=== PATIENT | female | born 1940 | race Caucasian/White ===

== ENCOUNTER 2020-04-06 11:30 | Outpatient (CLI) | payer MEDICARE, SELFPAY ==
--- NOTE | ~2020-04-06 | XR_ITS ---
EXAMINATION: XR knee RT 3V DATE: 04/06/2020 11:56 INDICATION: Right knee joint effusion. TECHNIQUE: 3 views of right knee were obtained. COMPARISON: None. FINDINGS: There is lateral subluxation of tibia with respect to distal femur. No fracture. There is s evere osteoarthritis of patellofemoral compartment and moderate osteoarthritis of medial and lateral compartments. There is a small knee joint effusion. IMPRESSION: 1. Severe right knee osteoarthritis. 2. Small right knee joint effusion. Reviewed, dictated and finalized at location E.
--- NOTE | ~2020-04-06 | XR_ITS ---
EXAMINATION: XR lumbar spine 2-3V DATE: 04/06/2020 11:56 INDICATION: Low back pain TECHNIQUE: Anteroposterior and lateral views of the lumbar spine, and cone-down lateral view of the l umbosacral junction were obtained. COMPARISON: None. FINDINGS: There is lumbar levoscoliosis. The vertebral body heights and alignment are maintained. The re is no fracture. There is severe loss of intervertebral disc space height at L2-3 and L3-4. Small d egenerative osteophytes project from the anterior endplates of multiple vertebral bodies. Advanced fa cet osteoarthritis is seen in the lower lumbar spine. Calcified atherosclerosis is noted. The bowel g as pattern is normal. There is moderate right hip osteoarthritis. IMPRESSION: 1. Severe lumbar spondylosis without acute findings. Reviewed, dictated and finalized at location A.
== END 2020-04-06 11:31 | disposition home or self-care (01) ==
PROVIDERS: PCP Family Medicine; Visit Provider Family Medicine
DX: M25.461 Effusion, right knee (principal); M54.5 Low back pain; M47.816 Spondylosis without myelopathy or radiculopathy, lumbar region; M17.11 Unilateral primary osteoarthritis, right knee
CPT/HCPCS: 72100; 73562

== ENCOUNTER 2020-05-02 11:00 | Outpatient (RCR) | payer MEDICARE, SELFPAY ==
--- NOTE | 2020-04-04 11:35 | PTOPEVAL ---
PHYSICAL THERAPY EVALUATION AND PLAN OF CARE Thank you for referring Diana Haynes to [facility]. I recommend Diana participate in physical therapy 2x/week for 4 weeks followed by re-assessment for further PT needs. Please review, sign, date and return this plan of care MAGGIE. I agree with and certify that the following plan of care is medically necessary. Referring Physician Date Attending Provider: Elizabeth Zamora MD Evaluation Outpatient Past Medical History Cardiovascular History Hx Hypertension Yes Endocrine History Hx Diabetes Yes Evaluation Information Problem Diagnosis right knee pain, back/side pain Onset January 2020 Subjective Information Diana is here today with c/ Query Text:As Reported By Patient/ o right knee pain and left Family side/back pain. She states that she thinks she initially injured the back/side when she was putting the bed skirt on her bed and she felt a pull and has not resolved. Diana is unsure when her knee was injured, she just woke up to it hurting. Self Report Pain Assessment Left Back Reported Pain Level 3 Pain Description Aching,Pinching Pain Frequency Acute,Continuous Lowest Pain Intensity 3 Greatest Pain Intensity 6 Pain Aggravating Factors Walking,Weight Bearing/ Standing Other Pain Aggravating Factors first waking in the morning Lumbar ROM Lumbar Flexion (0-90) 45 Query Text:Active in Degrees Lumbar Flexion Active Mid Manzo Query Text:Hands to: Lumbar Extension (0-40) 10 Query Text:Active in Degrees Lateral Rotation Right (0-45) 30 Query Text:Active in Degrees Lateral Rotation Left (0-45) 35 Query Text:Active in Degrees Lumbar Comments pain with extension and left rotation in thigh and left side; SLS: pain lifting left leg, no pain lifting irght General Lower Extremity Range of Motion Reason Not Measured WFL/Left Knee Range of Motion Right Knee Flexion Range of Motion - Active 116 Knee Extension Range of Motion - Active 4 Query Text: Knee Range of Motion Comments reports pain in knee when extending Lumbar Strength Upper Abdominal Strength 3 Fair Lower Abdominal Strength 3-Fair- Hip Strength Bilateral Hip Flexion Strength
--- NOTE | 2020-04-20 11:53 | PCPTNOTE ---
Missed treatment note on 04/15/2020 at 11:00am. s: Patient arrived to therapy with 3-4/10pain. Stated felt a difference with reduced pain after the stim from last treatment. Continues to take two acetomenaphin before therapy. o: Patient performed 5min Nustep level 2 resistance at seat 10 with tom. UE/LE to increase muscle strength and endurance. Exercises as described below include: - Seated on green namibian ball with education on posture awareness performing alt. marching with one UE support on table for balance [id number]; limited ROM on L due to pain - seated on edge of bed hamstring stretch 10sec hold x3reps - Seated alt. marching [id number] with education on posture awareness with core activation - Supine SLR [id number] ea side; demo and cues for technique - Supine LTR with red namibian ball 5sec hold x10ea side - Supine bridges with red namibian ball [id number] x2 - Sidelying hip abduction [id number] with tactile cues for positioning and technique Manual therapy performed in sidelying for TPR to glute med and QL Seated IFC with MHP x15min with vector scan off to reduce pain and muscle tension A: Patient tolerated manual therapy this date with visable muscle twitch in left glute with TPR P: Continue working towards plan of care goals. PT Procedures: Treatment day number 4 Total minutes of PT 55min E-stim unattended PT Timed treatment: PT Exercise 2 units for 30min, manual therapy 1 unit for 10min
--- NOTE | 2020-05-02 11:38 | PTOPEVAL ---
PHYSICAL THERAPY PLAN OF CARE UPDATE AND PROGRESS REPORT Thank you for referring Diana Haynes to [facility]. At this time, Diana would like to follow-up with physician regarding her current care. She will also continue her HEP. We will hold her chart for 30days. Please review, sign, date and return this plan of care MAGGIE. I agree with and certify that the following plan of care is medically necessary. Referring Physician Date Attending Provider: Elizabeth Zamora MD Progress Diagnosis right knee pain, back/side pain Onset January 2020 Subjective Information Diana reports today that Query Text:As Reported By Patient/ she maybe feels a little Family better. The right knee is significantly improved, especially when she takes OTC NSAIDS. States that her left side pain persists although does not that if she moves around throughout the day it starts to feel better. Continues to report left anterior thigh pain that is less than it was with more tingles than numbness. Self Report Pain Assessment Left Back Reported Pain Level 5 Pain Description Aching,Pinching Pain Frequency Acute,Continuous Pain Aggravating Factors Walking,Weight Bearing/ Standing Pain Score Pain Score 5: Self Report Additional Pain Score Comments getting better Lumbar ROM Lumbar Flexion (0-90) 50 Query Text:Active in Degrees Lumbar Flexion Active Mid Manzo Query Text:Hands to: Lumbar Extension (0-40) 10 Query Text:Active in Degrees Lateral Rotation Right (0-45) 40 Query Text:Active in Degrees Lateral Rotation Left (0-45) 40 Query Text:Active in Degrees Lumbar Comments pain with extension and left rotation in anterior thigh causing tingling Lower Extremity Range of Motion Knee Range of Motion Right Knee Flexion Range of Motion - Active 119 Knee Extension Range of Motion - Active 4 Query Text: Lower Extremity Muscle Strength Testing Hip Strength Bilateral Hip Flexion Strength 5 Normal Hip Extension Strength 4- Good - Hip Abduction Strength 3+ Fair + Knee Strength Bilateral Knee Flexion Strength 5 Normal Knee Extension Strength 5 Normal Muscle Length Testing Muscle Length Testing Piriformis w/Hip Flexion >90 Degrees (R) M
--- NOTE | 2020-06-01 08:30 | PCPTNOTE ---
PHYSICAL THERAPY DISCHARGE Attending Provider: Elizabeth Zamora MD Patient:Diana Haynes Date of :1940 Diana was seen in physical therapy for 4 weeks starting on 04/04/2020. After a month of therapy, her right knee pain was improved, but she reported left side pain remained the same. She chose to continue her HEP and follow up with physician. We held her chart for 30 days and have not heard from patient or phyisican's office. She willl be discharged at this time. The goals have been partially met. Thank you for referring Diana to [facility]. Please review, sign, date and return this discharge summary MAGGIE. I have been updated about the patient's current status and I agree with discharge from the above service at this time. Referring Physician Date
== END 2020-06-02 14:11 | disposition home or self-care (01) ==
LOC: ANHPT 11:00
PROVIDERS: PCP Family Medicine; Visit Provider Family Medicine
DX: M25.561 Pain in right knee (principal); M54.9 Dorsalgia, unspecified
CPT/HCPCS: 97014; 97110; 97140; 97162; G0283

== ENCOUNTER 2020-06-02 08:35 | Outpatient (CLI) | payer MEDICARE, SELFPAY ==
--- NOTE | ~2020-06-02 | NM_ITS ---
EXAMINATION: NM parathyroid w imaging DATE: 06/02/2020 12:13 INDICATION: hypercalcemia TECHNIQUE: 19.6 mCi Tc99m sestamibi was administered by intravenous route. Anterior images of the nec k were obtained at 10 minutes and 2 hours. COMPARISON: None. FINDINGS/IMPRESSION: Normal uptake in the bilateral thyroid, parotid and submandibular glands, the former which decreases in intensity on the delayed images. There is no focus of persistent activity in the area of the thyro id or mediastinum to suggest parathyroid adenoma. Reviewed, dictated and finalized at location A.
== END 2020-06-02 08:36 | disposition home or self-care (01) ==
PROVIDERS: PCP Family Medicine; Visit Provider Family Medicine
DX: E83.52 Hypercalcemia (principal)
CPT/HCPCS: 78070; A9500

== ENCOUNTER 2020-12-13 11:15 | Outpatient (RCR) | payer MEDICARE, SELFPAY ==
--- NOTE | 2020-10-25 14:55 | PTOPEVAL ---
Thank you for referring Diana Haynes to [facility].? The patient is scheduled to be seen for therapy? 2x/week for 6-8 weeks. Please review, sign, date and return this plan of care MAGGIE. I agree with and certify that the following plan of care is medically necessary. Referring Physician Date Attending Provider: Karolina Hodgson PA-C Referring Provider: *PT Outpatient Evaluation Start: 10/25/20 12:27 Freq: Status: Active Protocol: Document 10/25/20 12:29 SOCORRO (Rec: 10/25/20 13:30 SOCORRO [id number]) Therapy Assessment Status Assessment Status Assessment Status Evaluation Outpatient Past Medical History Past Medical History Source of Past Medical History Patient,Recalled from Previous Visit, Unable to Confirm with Patient/Family Cardiovascular History Hx Hypertension Yes Musculoskeletal History Hx Arthritis Yes: right knee Hx Back Pain Yes Endocrine History Hx Diabetes Yes HEENT History Hx Glaucoma Yes Pain History Has Past Pain Affected Your Daily Life Yes Evaluation Information Problem Diagnosis back pain Onset Dec 2019 Cause lifting Additional Evaluation Detail She recently received right knee injection, but did not receive as much relief with her recent injection. Subjective Information She was placing her bed skirt, Query Text:As Reported By Patient/ when she attempted to lift the Family mattress. She then felt pain in her back region. She reports the pain varies in her back from sharp to ache, radiating numbness and tingling into left LE. She reports increased pain with lifting, and prolonged standing. Denies pain with ADL's. She is limited with community walking due to pain. She does not use her cane in the house. She is using muscle relaxers that has helped with her pain. She is not performing her HEP she was issued in May. She stopped her walking program in January 2020 due to COVID. Diagnostic Tests X-Rays For This Problem Yes: Small degenerative
--- NOTE | 2020-10-27 09:17 | PCPTNOTE ---
Patient called & cancelled scheduled appointment this date due to being ill.
--- NOTE | 2020-11-28 12:28 | PTOPEVAL ---
Thank you for referring Diana Haynes to [facility].? The patient is scheduled to be seen for therapy? 1 visit every 2 wk for 2 additional visits. Please review, sign, date and return this plan of care MAGGIE. I agree with and certify that the following plan of care is medically necessary. Referring Physician Date Admitting Provider: Attending Provider: Karolina Hodgson PA-C *PT Outpatient Evaluation Start: 10/25/20 12:27 Freq: Status: Active Protocol: Document 11/28/20 11:01 SOCORRO (Rec: 11/28/20 11:55 SOCORRO [id number]) Therapy Assessment Status Assessment Status Assessment Status Re-evaluation Evaluation Information Problem Diagnosis back pain Onset Dec 2019 Cause lifting Additional Evaluation Detail She recently received right knee injection, but did not receive as much relief with her recent injection. Subjective Information She reports she is able to Query Text:As Reported By Patient/ manage her pain with OTC Family medication. She cont to have pain in her left upper leg. She reports improved opal with walking and standing, but cont pain sharp pain in the low back region that radiating numbness and tingling into left LE. She is able to opal IADL's for 15-30' then requires a seated rest. She has trouble lifting due to whole body weakness. She is limited with community walking due to fatigue and weakness, but not always increased pain. She will take Ibuprofen before performing increased activities. Pain Assessment Timing of Pain Assessment Timing of Pain Assessment Re-assessment Pain Scale Pain Scale Used Numeric (1 - 10) Self Report Pain Assessment Bilateral Lower Back Reported Pain Level 5 Pain Description Numbness,Radiating,Sharp, Tingling Pain Radiation Left Leg Pain Frequency Chronic,Intermittent Lowest Pain Intensity 0 Greatest Pain Intensity 6 Pain Aggravating Factors ADL's,Exercise/Activity, Lifting Pain Score Pain Score 5: Self Report Interventions Used Int
--- NOTE | 2020-12-22 12:30 | PCPTNOTE ---
Patient called & cancelled scheduled appointment on 12/27/20, she did not reschedule at this time.
--- NOTE | 2021-01-17 10:18 | PCPTNOTE ---
Admitting Provider: Attending Provider: Karolina Hodgson PA-C Patient:Diana Haynes Date of :1940 Discharge Note Patient has not returned for any further treatments since 12/13/2020, therefore she will be discharged at this time. Patient?s initial visit was on 10/25/2020 12:30 and she had a total of 10 visits. She has been provided a home program to maintain her gains achieved with therapy., The goals have been partially met. Thank you for referring this patient to [facility]. Please review, sign, date and return this discharge summary MAGGIE. I have been updated about the patient's current status and I agree with discharge from the above service at this time. Referring Physician Date
== END 2021-01-17 12:50 | disposition home or self-care (01) ==
LOC: ANHPT 11:15
PROVIDERS: PCP Family Medicine; Visit Provider Physician Assistant
DX: M54.5 Low back pain (principal); M47.816 Spondylosis without myelopathy or radiculopathy, lumbar region; R29.898 Other symptoms and signs involving the musculoskeletal system
CPT/HCPCS: 97110; 97112; 97140; 97162; 97530

== ENCOUNTER 2021-07-19 07:45 | Outpatient (CLI) | payer MEDICARE, SELFPAY ==
--- NOTE | ~2021-07-19 | DEXA_ITS ---
Bone Density Report Name: Diana Haynes Age: 81 Sex: Female Ethnicity: White Date of : 1940 Indication: postmenopausal; height loss; prior fracture; Referring Provider: Karolina Hodgson Study: Bone densitometry was performed. Exam Date: July 19, 2021 Accession number: [id number] Bone Density: Region BMD T-score Z-score Classification AP Spine (L1-L4) 1.314 2.4 5.1 Normal Femoral Neck (Left) 0.822 -0.2 2.1 Normal Total Hip (Left) 0.935 -0.1 2.0 Normal Total Hip Bilateral Avg 0.936 -0.1 2.0 Normal Femoral Neck (Right) 0.881 0.3 2.6 Normal Total Hip (Right) 0.936 0.0 2.0 Normal World Health Organization criteria for BMD impression classify patients as: Normal (T-score at or above -1.0), Osteopenia (T-score between -1.0 and -2.5), or Osteoporosis (T-score at or below -2.5). 10-year Fracture Risk: FRAX not reported because: All T-scores for Spine Total, Hip Total, Femoral Neck at or above -1.0 Clinical Information Provided by Patient: Has had a low trauma fracture Has used the following medications: Vitamin D Patient maximum height was 67 Menopause Age: 52 No regular weight bearing exercise Does not regularly consume dairy products Onset of menses at age 15 Number of children 0 Impression: The patient has normal bone mass. The patient has risk factors, including: previous fracture. Discussion: LOW RISK OF FRACTURE; BONE DENSITY IS WELL ABOVE THE MINIMUM DESIRABLE LEVEL AND ABOVE AVERAGE FOR AGE AND SEX AT ALL SKELETAL SITES TESTED. This person's bone density is above expected limits for age and sex. This is rarely clinically significant, but should be pursued if there are significant musculoskeletal complaints. The patient should follow a healthful lifestyle (good nutrition with adequate calcium and vitamin D, and appropriate weight-bearing exercise). Follow-Up: Consider repeating this study in 5 years or sooner if there is some new clinical indication. Reported by: MEMO on 07/19/2021 8:12:00 AM. Reviewed, dictated and finalized at location ALupe UMANZOR
== END 2021-07-19 07:46 | disposition home or self-care (01) ==
LOC: ANHIMG 07:46
PROVIDERS: PCP Family Medicine; Visit Provider Physician Assistant
DX: Z78.0 Asymptomatic menopausal state (principal)
CPT/HCPCS: 77080

== ENCOUNTER 2022-07-06 10:13 | Emergency (ER) | payer MEDICARE, SELFPAY ==
[2022-07-06] VITALS (30 sets, daily range): BP systolic 170–215; BP diastolic 96–129; PULSE 86–145; RESP 16–27; TEMP 36.5; O2SAT 82–99
--- NOTE | ~2022-07-06 | CT_ITS ---
EXAMINATION: CT abdomen pelvis wo con DATE: 07/06/2022 11:27 INDICATION: Left lower quadrant pain. TECHNIQUE: Computed tomography (CT) of the abdomen and pelvis was performed without intravenous contr ast. The dose-length product was 577.77 mGy-cm. Automated exposure control and iterative reconstructi on technique were employed. COMPARISON: None. FINDINGS: Lung bases are unremarkable. Heart size upper normal. No significant pleural or pericardial effusion. There is atherosclerosis of the aorta without evidence for aneurysm. Gallbladder is disten ded. The liver, spleen, pancreas, adrenal glands and left kidney are unremarkable. There is a small 1 .4 cm exophytic right renal cyst. No renal/ureteral stones or hydronephrosis. Nonobstructive bowel ga s pattern. Moderate osteoarthritis of the hips. No evidence for diverticulitis or appendicitis. Sever e lumbar spondylosis. IMPRESSION: 1. No acute abdominal abnormality. Reviewed, dictated and finalized at location B.
--- NOTE | ~2022-07-06 | XR_ITS ---
EXAMINATION: XR lumbar spine 2-3V DATE: 07/06/2022 11:22 INDICATION: Low back pain TECHNIQUE: Anteroposterior and lateral views of the lumbar spine, and cone-down lateral view of the l umbosacral junction were obtained. COMPARISON: 04/06/2020 FINDINGS: Vertebral body alignment is normal. There appears to be mild loss of vertebral body height at L2. There is severe loss of intervertebral disc space height at L2-3 and L3-4 and moderate loss of disc space height at L4-5. Small degenerative osteophytes project from the anterior endplates of mul tiple vertebral bodies. Calcified atherosclerosis is noted. There is a dilated bowel in the right abd omen. IMPRESSION: 1. Possible age-indeterminate mild L2 compression fracture. 2. Severe lumbar spondylosis. 3. Dilated bowel loop of the right abdomen. CT pending. Reviewed, dictated and finalized at location A.
--- NOTE | 2022-07-06 10:45 | ECG_ITS ---
Measurements Intervals [place] Rate: 128 P: 33 NV: 134 QRS: -48 QRSD: 77 T: 69 QT: 334 QTc: 488 Interpretive Statements SINUS TACHYCARDIA WITH FREQUENT SUPRAVENTRICULAR PREMATURE COMPLEXES PATTERN CONSISTENT WITH PULMONARY DISEASE LEFT ATRIAL ENLARGEMENT NONSPECIFIC ST AND T CHANGES LEFT ANTERIOR FASCICULAR BLOCK [QRS AXIS <= -45, QR IN I, RS IN II] LEFT VENTRICULAR HYPERTROPHY AND ST-T CHANGE [VOLTAGE CRITERIA PLUS ST/T ABNORMALITY] NO PREVIOUS ECG AVAILABLE FOR COMPARISON Electronically Signed On 07-07-2022 13:20:07 CDT by Anika Olguin M.D.
--- NOTE | 2022-07-06 10:49 | ED.BACK ---
HPI - Back Pain/Injury General Chief Complaint: Back Pain/Injury Stated Complaint: back pain radiating down left leg Time Seen by Provider: 07/06/22 10:30 History of Present Illness HPI Narrative: 82-year-old female presents the emergency room complaints of gradual onset of left lower back pain that radiates into her leg. Patient states pain has been present since Saturday. States pain is worse with ambulation, and with getting into and out of the sitting position. Patient also reports sudden onset of left lower quadrant pain on Saturday, that is a accompanied with nausea. Patient denies any constipation or diarrhea. Patient states that she has not taken any of her prescribed medications since Saturday due to nausea. Attempted to call her PCP, who did not return her phone call. Related Data Home Medications Medication Instructions Recorded Confirmed aspirin 81 mg tablet,delayed 81 mg PO DAILY 10/12/19 06/11/22 release (Adult Low Dose Aspirin) lancets 26 gauge (Lancets,Ultra #100 ea 10/12/19 06/11/22 Thin) latanoprost 0.005 % eye drops 1 drop ophthalmic (eye) QPM 10/12/19 06/11/22 timolol 0.5 % eye drops 1 drop ophthalmic (eye) Q12H 10/12/19 06/11/22 Allergies Allergy/AdvReac Type Severity Reaction Status Date / Time NICKY Inhibitors Allergy Unknown abdominal Verified 07/06/22 10:36 pain atorvastatin Allergy Unknown abdominal Verified 07/06/22 10:36 pain amlodipine AdvReac Mild Dizziness Verified 07/06/22 10:36 Review of Systems Review of Systems: CONSTITUTIONAL: Denies fever, chills, or sweats. EYES: Denies visual changes, redness, or discharge. ENT: Denies rhinorrhea, congestion, sore throat, or otalgia. CARDIOVASCULAR: Denies chest pain, palpitations, or edema. RESPIRATORY: Denies cough or dyspnea. GASTROINTESTINAL: Reports left lower quadrant pain and nausea GENITOURINARY: Denies dysuria or hematuria. SKIN: Denies rash or itching. MUSCULOSKELETAL: Reports lower back pain NEUROLOGIC: Denies headache, numbness, dizziness, or weakness. PSYCHIATRIC: Denies anxiety or depression. [facility] Past Medical History Medical History Back pain Benign essential HTN BP (high blood pressure) Degenerative joint disease of knee Effusion, right knee Glaucoma Hypercalcemia Knee pain, right Lumbar spondylosis Mixed hyperlipidemia Type 2 diabetes mellitus with diabetic chronic kidney disease Type 2 diabetes mellitus without complications Family History Family History Father Hypertension Cerebrovascular accident Sibling Hypertension Cerebrovascular accident Mother Family history of macular degeneration Social History Social History (Updated 06/11/22 @ 10:31 by Analy Reeder) Social History: Smoking packs per day: 1 Smoking cigarettes per day: 20.0 Years smoked: 10 Smoking pack-years: 10.00 Smoking status: Never smoker Tobacco type: cigarettes Second hand tobacco smoke exposure: No Smoking end date: 11/18/79 Alcohol intake: never Substance use: never Substance use type: does not use Gender identity (if verbalized by the patient): Female Sexual Orientation (if Verbalized by the Patient): Straight or Heterosexual Exam Narrative: GENERAL: Well-appearing, well-nourished, no physical limitations, and in no acute distress. HEAD: Normocephalic, atraumatic. EYES: Conjunctivae normal, PERRLA and EOMI. CHEST: Clear to auscultation. No respiratory distress. No wheezes rales or rhonchi. No tenderness. HEART: Regular rate and rhythm. No murmur heard. Normal peripheral pulses. ABDOMEN: Soft, left lower quadrant tenderness,, nondistended, normal active bowel sounds. BACK: No CVA tenderness; tenderness in the left gluteal muscle, negative SLE left leg EXTREMITIES: Normal range of motion. No edema. No clubbing or cyanosis SKIN: Warm, dry, no rash. No noted wounds NEURO: No foc
[2022-07-06] MEDS: SODIUM CHLORIDE 0.9% IV 1,000 ML 250 ML IV CONT (11:09)
[2022-07-06] MEDS: MORPHINE SULFATE (*CRX) 2 MG/ML INJ IV PUSH (11:10)
[2022-07-06] MEDS: ONDANSETRON INJ 4 MG/2 ML VIAL IV PUSH (11:10)
[2022-07-06 11:21] LABS: Basophils Absolute Auto 0.1 K/mm3 (0.0-0.1); Basophils Percent Auto 0.3 % (0.2-1.2); Eosinophils Percent Auto 0.1 % (0-4.4); Hemoglobin 14.8 g/dL (12.0-15.0); Immature Granulocyte Absolute 0.06 K/mm3 (0.00-0.031); Immature Granulocyte Percent A 0.4 % (0-0.5); Lymphocytes Absolute Auto 1.12 K/mm3 (0.9-3.2); Lymphocytes Percent Auto 7.3 % (18.3-44.2); Mean Corpuscular HGB Conc 34.4 g/dl (32-36); Mean Corpuscular Hemoglobin 29.4 pg (26-34); Mean Corpuscular Volume 85.3 fl (80-100); Mean Platelet Volume 10.7 fl (7.4-10.4); Monocytes Absolute Auto 0.9 K/mm3 (0.1-0.6); Monocytes Percent Auto 6.1 % (2.6-8.5); Neutrophils Absolute Auto 13.1 K/mm3 (1.3-6.7); Neutrophils Percent Auto 85.8 % (45.5-73.1); Platelet Count Result 273 k/mm3 (150-375); Red Blood Count 5.04 M/mm3 (4.2-5.4); Red Cell Distribution Width 12.7 % (11.5-14.5); White Blood Count 15.3 K/mm3 (4.5-10.0)
[2022-07-06] MEDS: LOSARTAN POTASSIUM 100 MG TABLET PO (11:33)
[2022-07-06] MEDS: METOPROLOL SUCCINATE EXT REL 100 MG TABCR PO (11:33)
[2022-07-06 11:36] LABS: Albumin Level 4.8 g/dL (3.5-5.1); Alkaline Phosphatase 90 U/L (38-126); Anion Gap 13 mmol/L (8-16); Aspartate Amino Transferase 33 U/L (14-36); Blood Urea Nitrogen 26 mg/dL (7-17); Calcium 10.4 mg/dL (8.4-10.2); Carbon Dioxide 23 mmol/L (22-30); Chloride 96 mmol/L (98-107); Estimated CRCL calculation 46 ml/min; Estimated Glomerular Filt Rate 60; Glucose 446 mg/dL (65-110); Potassium 3.8 mmol/L (3.4-5.0); Sodium 132 mmol/L (137-145)
[2022-07-06 11:41] LABS: Alanine Aminotransferase 27 U/L (6-35)
[2022-07-06] MEDS: METOPROLOL TARTRATE INJ 5 MG/5 ML VIAL IV PUSH (12:23)
[2022-07-06] MEDS: cloNIDine HCL 0.2 MG TABLET PO (14:01)
[2022-07-06] MEDS: metFORMIN HCL 500 MG TABLET PO (14:01)
== END 2022-07-06 15:18 | disposition home or self-care (01) ==
PROVIDERS: Emergency Provider Nurse Practitioner Family; PCP Family Medicine
DX: M48.56XA Collapsed vertebra, not elsewhere classified, lumbar region, initial encounter for fracture (principal); I12.9 Hypertensive chronic kidney disease with stage 1 through stage 4 chronic kidney disease, or unspecified chronic kidney disease; R11.0 Nausea; E11.22 Type 2 diabetes mellitus with diabetic chronic kidney disease; N18.9 Chronic kidney disease, unspecified; H40.9 Unspecified glaucoma; E78.2 Mixed hyperlipidemia; M17.10 Unilateral primary osteoarthritis, unspecified knee; T50.916A Underdosing of multiple unspecified drugs, medicaments and biological substances, initial encounter; Z91.128 Patient's intentional underdosing of medication regimen for other reason; Z79.82 Long term (current) use of aspirin; Z87.891 Personal history of nicotine dependence; Z79.84 Long term (current) use of oral hypoglycemic drugs; R00.0 Tachycardia, unspecified; I49.1 Atrial premature depolarization; R94.31 Abnormal electrocardiogram [ECG] [EKG]; I44.4 Left anterior fascicular block; I51.7 Cardiomegaly; M47.816 Spondylosis without myelopathy or radiculopathy, lumbar region
CPT/HCPCS: 36415; 72100; 74176; 80053; 85025; 93005; 96361; 96374; 96375; 99284; A9270; J2270; J2405; J7030

== ENCOUNTER → 2022-08-01 13:35 | Outpatient (CLI) | payer MEDICARE, SELFPAY ==
--- NOTE | ~2022-08-01 | MR_ITS ---
EXAMINATION: MR lumbar spine wo con DATE: 08/01/2022 14:24 INDICATION: Low back pain. Closed fracture of lumbar vertebra. TECHNIQUE: Magnetic resonance imaging (MRI) of the lumbar spine was performed without intravenous con trast. Sequences included sagittal T2-weighted FSE, sagittal T2-weighted FS FSE, sagittal T1-weighted FSE, and axial T2-weighted FSE. COMPARISON: CT abdomen and pelvis 07/06/2022 FINDINGS: There is 21 degrees levoscoliosis of lumbar spine. There is 3 mm retrolisthesis of L1 on L2 , L2 on L3, and L3 on L4. Vertebral body heights are normal. There is moderately decreased disc heigh t at T12-L1, severely decreased disc height from L1-L2 through L4-L5, and mildly decreased disc heigh t at L5-S1 with endplate remodeling. There is ligamentum flavum hypertrophy at the lumbar disc levels . The distal spinal cord signal intensity is normal. The conus medullaris is at L1. The following dis c levels are specifically discussed: L1-L2: The disc is bulging and has an annular fissure. There is severe bilateral facet joint osteoart hritis. There is mild right and moderate left neural foraminal stenosis. There is mild central canal stenosis. L2-L3: The disc is bulging and has an annular fissure. There is moderate right and severe left facet joint osteoarthritis. There is mild right and moderate left neural foraminal stenosis. There is mild central canal stenosis. L3-L4: The disc is bulging and has an annular fissure. There is moderate bilateral facet joint osteoa rthritis. There is moderate bilateral neural foraminal stenosis. There is moderate central canal sten osis. L4-L5: The disc is bulging and has an annular fissure. There is severe bilateral facet joint osteoart hritis. There is moderate right and mild left neural foraminal stenosis. There is mild central canal stenosis. L5-S1: The disc is bulging. There is severe bilateral facet joint osteoarthritis. There is moderate r ight and mild left neural foraminal stenosis. There is mild central canal stenosis. IMPRESSION: 1. Severe lumbar spondylosis. 2. Lumbar levoscoliosis. Reviewed, dictated and finalized at location A.
== END ==
PROVIDERS: PCP Family Medicine; Visit Provider Nurse Practitioner Family
DX: S32.009A Unspecified fracture of unspecified lumbar vertebra, initial encounter for closed fracture (principal); X58.XXXA Exposure to other specified factors, initial encounter; M47.896 Other spondylosis, lumbar region
CPT/HCPCS: 72148

== ENCOUNTER → 2022-09-12 11:12 | Outpatient (CLI) | payer MEDICARE, SELFPAY ==
--- NOTE | ~2022-09-12 | XR_ITS ---
XR knee RT 2V 09/12/2022 11:26 Indication: Right knee pain Procedure: 4 views right knee Comparison: 05/05/2020 Findings: There is severe tricompartment osteoarthritis of the right knee. No acute fracture or traum atic malalignment. No significant joint effusion. Impression: 1: Severe tricompartment osteoarthritis of the right knee. Reviewed, dictated and finalized at location B. Impression: 1: Severe tricompartment osteoarthritis of the right knee.
== END ==
PROVIDERS: PCP Family Medicine; Visit Provider Nurse Practitioner Family
DX: M17.11 Unilateral primary osteoarthritis, right knee (principal)
CPT/HCPCS: 73560

== ENCOUNTER 2022-09-12 21:10 | Emergency (ER) | payer MEDICARE, SELFPAY ==
--- NOTE | ~2022-09-12 | CT_ITS ---
EXAMINATION: CT abdomen pelvis wo/w con DATE: 09/13/2022 01:51 INDICATION: Hematuria. Leukocytosis. TECHNIQUE: Computed tomography (CT) of the abdomen and pelvis was performed without and with 130 cc O mnipaque 350 intravenous contrast. The dose-length product was 1583.22 mGy-cm. Automated exposure con trol and iterative reconstruction technique were employed. COMPARISON: CT dated 07/06/2022 FINDINGS: Borderline heart size. No significant pleural or pericardial effusion. Small hiatal hernia. There is atherosclerosis of the aorta. No aneurysm. There is a right renal cyst measuring 1.5 cm. Th ere are multiple additional hypovascular lesions of the kidneys, too small to characterize. There are bilateral extrarenal pelvis. There is a small 5 mm exophytic enhancing lesion of the left kidney, werner spicious for renal cell carcinoma. This was not seen on prior examination. Nonobstructive bowel gas p attern. No renal or ureteral stones are identified. Recommend follow-up evaluation with MRI. There is severe lower thoracic and lumbar spondylosis. There is severe osteoarthritis of the right hip and mo derate osteoarthritis of the left hip. There is scoliosis. IMPRESSION: 1. Small 5 mm exophytic enhancing left renal mass, not seen on prior examination, suspicious for larry l cell carcinoma. Recommend MRI. Recommend urology consultation. Dr. Rafi Mccormick discussed with Dr. Yan at 09/13/2022 08:31 CDT. Reviewed, dictated and finalized at location B. IMPRESSION: 1. Small 5 mm exophytic enhancing left renal mass, not seen on prior examinatio n, suspicious for renal cell carcinoma. Recommend MRI. Recommend urology consul tation. Dr. Rafi Mccormick discussed with Dr. Yan at 09/13/2022 08:31 CDT.
[2022-09-12 21:21] VITALS: BP 171/93; PULSE 73; RESP 14; TEMP 37; O2SAT 98
--- NOTE | 2022-09-12 22:41 | ED.FEMALEGU ---
HPI - Female Genitourinary General Chief complaint: Urogenital-Female Stated complaint: hematuria Time Seen by Provider: 09/12/22 21:54 Source: patient Mode of arrival: ambulatory Limitations: no limitations History of Present Illness HPI Narrative: This is an 82-year-old female that presents to the emergency department for hematuria noted tonight. Also reports difficulty urinating. Denies fever, vomiting, or flank pain. Related Data Home Medications Medication Instructions Recorded Confirmed aspirin 81 mg tablet,delayed 81 mg PO DAILY 10/12/19 06/11/22 release (Adult Low Dose Aspirin) lancets 26 gauge (Lancets,Ultra #100 ea 10/12/19 06/11/22 Thin) latanoprost 0.005 % eye drops 1 drop ophthalmic (eye) QPM 10/12/19 06/11/22 timolol 0.5 % eye drops 1 drop ophthalmic (eye) Q12H 10/12/19 06/11/22 Allergies Allergy/AdvReac Type Severity Reaction Status Date / Time NICKY Inhibitors Allergy Unknown abdominal Verified 09/12/22 21:38 pain atorvastatin Allergy Unknown abdominal Verified 09/12/22 21:38 pain amlodipine AdvReac Mild Dizziness Verified 09/12/22 21:38 Review of Systems Review of Systems: CONSTITUTIONAL: Denies fever GASTROINTESTINAL: Denies abdominal pain, nausea, vomiting GENITOURINARY: Reports dysuria and hematuria. All systems reviewed & are unremarkable except as noted in HPI and below PMFSH Past Medical History Medical History Back pain Benign essential HTN BP (high blood pressure) Degenerative joint disease of knee Effusion, right knee Glaucoma Hypercalcemia Knee pain, right Lumbar spondylosis Mixed hyperlipidemia Type 2 diabetes mellitus with diabetic chronic kidney disease Type 2 diabetes mellitus without complications Family History Family History Father Hypertension Cerebrovascular accident Sibling Hypertension Cerebrovascular accident Mother Family history of macular degeneration Social History Social History (Updated 07/12/22 @ 12:54 by Dalia Ghosh) Social History: Smoking packs per day: 1 Smoking cigarettes per day: 20.0 Years smoked: 10 Smoking pack-years: 10.00 Smoking status: Never smoker Tobacco type: cigarettes Second hand tobacco smoke exposure: No Smoking end date: 11/18/79 Alcohol intake: never Substance use: never Substance use type: does not use Gender identity (if verbalized by the patient): Female Sexual Orientation (if Verbalized by the Patient): Straight or Heterosexual Exam Narrative: GENERAL: Well-appearing, well-nourished, and in no acute distress. HEAD: Normocephalic, atraumatic. EYES: EOMI. CHEST: Clear to auscultation. No respiratory distress. No wheezes rales or rhonchi HEART: Regular rate and rhythm. No murmur heard. Normal peripheral pulses. ABDOMEN: Soft, nontender, nondistended, normal active bowel sounds. No CVA tenderness EXTREMITIES: Normal range of motion. No edema. SKIN: Warm, dry, no rash. NEURO: No focal deficits. Alert and oriented x3. PSYCH: Normal mood and affect Course Consultations Consultation #1: Spoke with Dr. Cuevas about patient and workup who will follow-up in clinic for cystoscopy for further evaluation Date: 09/13/22 Vital Signs Vital signs: Vital Signs Temperature 98.6 F 09/12/22 21:21 Pulse Rate 73 09/12/22 21:21 Respiratory Rate 14 09/12/22 21:21 Blood Pressure 171/93 H 09/12/22 21:21 Pulse Oximetry 98 09/12/22 21:21 Oxygen Delivery Room Air 09/12/22 21:21 Temperature 98.6 F 09/12/22 21:21 Pulse Rate 73 09/12/22 21:21 Respiratory Rate 14 09/12/22 21:21 Blood Pressure 171/93 H 09/12/22 21:21 Pulse Oximetry 98 09/12/22 21:21 Oxygen Delivery Room Air 09/12/22 21:21 MDM - Female Genitourinary MDM Narrative Medical decision making narrative: Patient presents to the emergency department for painless h
[2022-09-12 22:49] LABS: Basophils Percent Auto 0.2 % (0.2-1.2); Eosinophils Absolute Auto 0.2 K/mm3 (0-0.3); Eosinophils Percent Auto 0.9 % (0-4.4); Hematocrit 39.5 % (37.0-47.0); Immature Granulocyte Percent A 0.5 % (0-0.5); Lymphocytes Absolute Auto 1.68 K/mm3 (0.9-3.2); Lymphocytes Percent Auto 8.4 % (18.3-44.2); Mean Corpuscular HGB Conc 32.9 g/dl (32-36); Mean Corpuscular Hemoglobin 29.7 pg (26-34); Mean Corpuscular Volume 90.4 fl (80-100); Mean Platelet Volume 10.7 fl (7.4-10.4); Monocytes Percent Auto 4.9 % (2.6-8.5); Neutrophils Percent Auto 85.1 % (45.5-73.1); Platelet Count Result 293 k/mm3 (150-375); Red Blood Count 4.37 M/mm3 (4.2-5.4); Red Cell Distribution Width 12.6 % (11.5-14.5)
[2022-09-12 23:06] LABS: Anion Gap 13 mmol/L (8-16); Blood Urea Nitrogen 35 mg/dL (7-17); Calcium 10.7 mg/dL (8.4-10.2); Carbon Dioxide 28 mmol/L (22-30); Chloride 95 mmol/L (98-107); Estimated CRCL calculation 41 ml/min; Estimated Glomerular Filt Rate 53; Glucose 240 mg/dL (65-110); Potassium 4.9 mmol/L (3.4-5.0); Sodium 136 mmol/L (137-145)
[2022-09-12 23:51] LABS: Add Urine Microscopic? YES; Appearance Urine Turbid (Clear); Bilirubin Urine Negative (Negative); Blood Urine 2+ (Negative); Color Urine Red (Yellow); Glucose Urine UA 1+ mg/dL (Negative); Ketones Urine Trace mg/dL (Negative); Leukocyte Esterase Ur Negative LEU/UL (Negative); Nitrate Urine Negative (Negative); Protein Urine 2+ mg/dL (Negative); Specific Grav Ur 1.024 (1.001-1.035); Urobilinogen Urine Negative mg/dL (<2.0)
[2022-09-13] VITALS: BP 164/86; PULSE 76; RESP 20
[2022-09-13 01:15] VITALS: BP 155/84; PULSE 79
[2022-09-13 01:27] LABS: RBC Urine 0-2 /hpf (0-2); WBC Urine 0-3 /hpf
[2022-09-13 02:30] VITALS: BP 161/84; PULSE 71; RESP 20; O2SAT 97
[2022-09-13 03:17] VITALS: BP 158/88; PULSE 78; RESP 16; O2SAT 100
== END 2022-09-13 03:18 | disposition home or self-care (01) ==
PROVIDERS: Emergency Medicine; Physician Assistant; Emergency Provider Emergency Medicine; PCP Family Medicine
DX: R31.0 Gross hematuria (principal); D72.829 Elevated white blood cell count, unspecified; E11.22 Type 2 diabetes mellitus with diabetic chronic kidney disease; I12.9 Hypertensive chronic kidney disease with stage 1 through stage 4 chronic kidney disease, or unspecified chronic kidney disease; N18.9 Chronic kidney disease, unspecified; D41.02 Neoplasm of uncertain behavior of left kidney
CPT/HCPCS: 36415; 74178; 80048; 81001; 85025; 99284; Q9967

== ENCOUNTER → 2023-03-01 11:11 | Outpatient (CLI) | payer MEDICARE, SELFPAY ==
--- NOTE | ~2023-03-01 | CT_ITS ---
EXAMINATION: CT abdomen pelvis wo/w con DATE: 03/01/2023 11:53 INDICATION: Neoplasm of uncertain behavior of left kidney. TECHNIQUE: Computed tomography (CT) of the abdomen and pelvis was performed without and with 100 mL O mnipaque 350 intravenous contrast. Automated exposure control and iterative reconstruction technique were employed. The dose-length product was 1340.33 mGy-cm. COMPARISON: CT abdomen and pelvis 12/14/2021, 07/06/2022 FINDINGS: The visualized portions of the lung bases demonstrate mild mild scarring in paraspinal righ t lower lobe. No pleural effusion. The heart size is normal. There are coronary artery calcifications . No pericardial effusion. The liver, gallbladder, spleen, pancreas, and right adrenal gland are norm al. There is a 12 mm mass in left adrenal gland without change in size from 07/06/2022, likely an conner vimal. There is cortical thinning of the kidneys. There are cysts in right kidney measuring up to 14 mm . There is a 5 mm in left kidney that is hyperdense on noncontrast images, consistent with a hemorrha gic cyst. There is a 17 mm fibroid in the uterus. There are no dilated loops of bowel. The appendix i s normal. There is calcified atherosclerosis of the aorta and many of the other arteries. There are n o pathologically enlarged lymph nodes. There is no free intraperitoneal fluid. There is lumbar dextro scoliosis and severe spondylosis. There is severe thoracic spondylosis. IMPRESSION: 1. Benign cysts in the kidneys. Reviewed, dictated and finalized at location A.
[2023-03-01 11:35] LABS: Estimated Glomerular Filt Rate 53
== END ==
PROVIDERS: PCP Nurse Practitioner Gerontology; Visit Provider Urology
DX: D41.02 Neoplasm of uncertain behavior of left kidney (principal); N28.1 Cyst of kidney, acquired
CPT/HCPCS: 74178; Q9967

== ENCOUNTER 2023-08-08 08:44 | Outpatient (CLI) | payer MEDICARE, SELFPAY ==
--- NOTE | ~2023-08-08 | NM_ITS ---
EXAMINATION: NM manny stress w perfusion DATE: 08/08/2023 10:48 INDICATION: Other forms of dyspnea. Preoperative evaluation. TECHNIQUE: Rest images were obtained following intravenous administration of 10.2 mCi Tc99m tetrofosm in (Myoview). The patient was infused intravenously with Lexiscan (Regadenoson). Then, 33.6 mCi Tc99m tetrofosmin (Myoview) was administered intravenously, and stress images were obtained. Data was eliel nstructed into short axis and horizontal and vertical long axis SPECT images. Gated SPECT images were also obtained. COMPARISON: None. FINDINGS: There is no definite reversible or fixed perfusion abnormality to suggest ischemia or infar ction. There is normal left ventricular chamber size, wall motion and ejection fraction. Left ventr icular ejection fraction measures >70%. IMPRESSION: 1. Normal myocardial perfusion at rest and during stress. 2. Left ventricular ejection fraction measuring >70%. Reviewed, dictated and finalized at location A.
--- NOTE | 2023-08-08 09:02 | EST_ITS ---
Patient Info Name: Diana Haynes Age: 83 years : 1940 Gender: Female Ht: 66 in Wt: 150 lbs BSA: 1.79 m2 HR: 66 bpm BP: 166 / 110 mmHg Heart Rhythm: Sinus Rhythm Exam Date: 08/08/2023 9:56 AM Exam Location: [facility] Patient Status: Outpatient Admit Date: 08/08/2023 Staff Ordering Physician: Daniel Anderson DO Attending Provider: Daniel Anderson DO Exercise Technologist: Chen Feliciano CT Exam Type: CA stress manny w NM Study Info Indications R06.09 - Other forms of dyspnea A regadenoson stress test was performed. Summary 1. 1. Negative lexiscan stress test for ischemic ST changes by ECG criteria. 2. 2. Baseline hypertension. 3. 3. Nuclear scan to follow and will be reported separately. Please correlate with it. 4. 4. Patient informed of the above results. Protocol: Lexiscan Stress ECG Details Stage: REST Duration (min): 2 min : 6 sec HR (bpm): 68 SBP (mmHg): 166 DBP (mmHg): 110 Stage: REST Duration (min): 11 min : 15 sec HR (bpm): 65 SBP (mmHg): 166 DBP (mmHg): 110 Stage: STAGE 1 Duration (min): 1 min : 0 sec HR (bpm): 77 SBP (mmHg): 181 DBP (mmHg): 101 Stage: RECOVERY Duration (min): 1 min : 0 sec HR (bpm): 80 SBP (mmHg): 181 DBP (mmHg): 101 Stage: RECOVERY Duration (min): 2 min : 0 sec HR (bpm): 78 SBP (mmHg): 181 DBP (mmHg): 101 Stage: RECOVERY Duration (min): 3 min : 0 sec HR (bpm): 75 SBP (mmHg): 181 DBP (mmHg): 101 Stage: RECOVERY Duration (min): 4 min : 0 sec HR (bpm): 71 SBP (mmHg): 168 DBP (mmHg): 95 Stage: RECOVERY Duration (min): 4 min : 2 sec HR (bpm): 71 SBP (mmHg): 168 DBP (mmHg): 95 Rest HR: 65 bpm Peak HR: 81 bpm Rest Sys BP: 166 mmHg Peak Sys BP: 181 mmHg Max Pred HR: 138 bpm % Max Pred HR: 59 % Target HR: 117 bpm Max RPP: 14,661 bpm*mmHg Termination Reason: Completed protocol Cardiac Symptoms: Shortness of breath Total Time: 1 min : 0 sec Rest Russo BP: 110 mmHg Peak Russo BP: 101 mmHg Total Dose: 0.4 mg Resting ECG Sinus rhythm, delayed precordial R/S transition, borderline ST-T wave in high lateral leads. Stress ECG No ST changes. Arrhythmias None. Report Signatures
== END 2023-08-08 08:45 | disposition home or self-care (01) ==
PROVIDERS: PCP Family Medicine; Visit Provider Internal Medicine Cardiovascular Disease
DX: R06.09 Other forms of dyspnea (principal)
CPT/HCPCS: 78452; 93017; A9502; J2785

== ENCOUNTER 2023-09-25 11:47 | Outpatient (CLI) | payer MEDICARE, SELFPAY ==
[2023-09-25 13:21] LABS: Basophils Percent Auto 0.3 % (0.2-1.2); Eosinophils Absolute Auto 0.2 K/mm3 (0-0.3); Eosinophils Percent Auto 1.9 % (0-4.4); Hematocrit 37.9 % (37.0-47.0); Hemoglobin 12.5 g/dL (12.0-15.0); Immature Granulocyte Absolute 0.04 K/mm3 (0.00-0.031); Immature Granulocyte Percent A 0.3 % (0-0.5); Lymphocytes Absolute Auto 2.86 K/mm3 (0.9-3.2); Lymphocytes Percent Auto 24.1 % (18.3-44.2); Mean Corpuscular Hemoglobin 28.9 pg (26-34); Mean Corpuscular Volume 87.7 fl (80-100); Monocytes Absolute Auto 0.9 K/mm3 (0.1-0.6); Monocytes Percent Auto 7.2 % (2.6-8.5); Neutrophils Absolute Auto 7.9 K/mm3 (1.3-6.7); Neutrophils Percent Auto 66.2 % (45.5-73.1); Platelet Count Result 276 k/mm3 (150-375); Red Blood Count 4.32 M/mm3 (4.2-5.4); Red Cell Distribution Width 12.6 % (11.5-14.5); White Blood Count 11.9 K/mm3 (4.5-10.0)
[2023-09-25 13:31] LABS: Urine Cotinine NEGATIVE
[2023-09-25 13:33] LABS: Albumin Level 4.7 g/dL (3.5-5.1); Anion Gap 8 mmol/L (8-16); Blood Urea Nitrogen 32 mg/dL (7-17); Calcium 10.5 mg/dL (8.4-10.2); Carbon Dioxide 29 mmol/L (22-30); Chloride 100 mmol/L (98-107); Estimated Glomerular Filt Rate 60; Glucose 127 mg/dL (65-110); Potassium 4.5 mmol/L (3.4-5.0); Sodium 137 mmol/L (137-145)
== END 2023-09-25 11:48 | disposition home or self-care (01) ==
LOC: ANHSURGERY 11:54
PROVIDERS: PCP Family Medicine; Visit Provider Orthopaedic Surgery
DX: Z01.818 Encounter for other preprocedural examination (principal); M17.10 Unilateral primary osteoarthritis, unspecified knee
CPT/HCPCS: 80048; 80307; 82040; 85025; 87077; 87081; 87186

== ENCOUNTER 2023-10-02 14:17 | Inpatient (IN) | payer MEDICARE, SELFPAY ==
--- NOTE | ~2023-10-02 | XR_ITS ---
Portable chest x-ray Comparison: None Clinical History: Leukocytosis Findings: Lungs are clear, without focal consolidation or pleural effusion. Cardiomediastinal silho uette is mildly prominent, possibly due to AP technique. Advanced degenerative change of the shoulder s noted. Impression: Clear lungs. Reviewed, dictated and finalized at location . [facility] Impression: Clear lungs.
--- NOTE | ~2023-10-02 | XR_ITS ---
EXAMINATION: XR pelvis 1-2V DATE: 10/02/2023 15:08 INDICATION: Hip fracture. TECHNIQUE: An anteroposterior view of the pelvis was obtained. COMPARISON: CT abdomen and pelvis 03/01/2023 FINDINGS: There is lumbar dextroscoliosis and severe spondylosis. No fracture. There is chronic advan zaida right hip osteoarthritis including flattening of superior femoral head and enlargement of the jessica tabulum. There is moderate left hip osteoarthritis. IMPRESSION: 1. Advanced right hip osteoarthritis and moderate left hip osteoarthritis. Reviewed, dictated and finalized at location A. 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
--- NOTE | ~2023-10-02 | US_ITS ---
EXAMINATION: US venous doppler LE RT DATE: 10/03/2023 08:34 INDICATION: Right lower limb pain. TECHNIQUE: Grayscale ultrasound images without and with compression and Doppler ultrasound images of the right lower extremity veins were obtained. COMPARISON: None. FINDINGS: The visualized portions of right common femoral vein, profunda (deep) femoral vein, femoral vein, pop liteal vein, peroneal veins, posterior tibial veins, and greater saphenous vein outflow are patent. IMPRESSION: 1. No deep venous thrombosis. Reviewed, dictated and finalized at location A. 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
[2023-10-02 14:35] VITALS: BP 153/84; PULSE 75; RESP 16; TEMP 36.2; O2SAT 99
--- NOTE | 2023-10-02 15:33 | ED.LOWEXIN ---
HPI - Extremity Injury (Lower) General Chief Complaint: Extremity Injury, Lower Stated Complaint: hip fracture - unable to walk History of Present Illness HPI Narrative: Patient is an 84-year-old female who presents to the emergency department this afternoon complaining of the inability to ambulate due to right hip pain. Patient states that when she is not moving her pain is 0/10 but when she tries to put weight on her right leg her pain shoots up to 10/10 and due to this she has not been ambulating. Patient states that she went to go see her orthopedic surgeon, Dr. Ortiz due to knee pain, however, he told her that her right hip is significantly worse than her right knee and she needs a hip replacement for severe osteoarthritis and avascular necrosis. Patient says she was scheduled for her surgery, however, her surgeon and cancel that because her hemoglobin A1c was too high, 8. She is denying any recent falls or trauma. Patient denies any chest pain, shortness of breath, nausea, vomiting, abdominal pain, dysuria, hematuria, constipation, diarrhea, melena, hematochezia, fevers or chills. He also denies any headaches, dizziness, lightheadedness, blurry visions, dizziness, focal weakness, numbness and or tingling. There are no other modifying, alleviating, or precipitating factors at this time. Related Data Home Medications Medication Instructions Recorded Confirmed aspirin 81 mg tablet,delayed 81 mg PO DAILY 10/12/19 09/25/23 release (Adult Low Dose Aspirin) lancets 26 gauge (Lancets,Ultra #100 ea 10/12/19 08/13/23 Thin) latanoprost 0.005 % eye drops 1 drop ophthalmic (eye) QPM 10/12/19 09/25/23 timolol 0.5 % eye drops 1 drop ophthalmic (eye) Q12H 10/12/19 09/25/23 acetaminophen 500 mg tablet 1,000 mg PO QID PRN Pain 09/25/23 09/25/23 metformin 500 mg tablet 500 mg BID 09/25/23 09/25/23 Allergies Allergy/AdvReac Type Severity Reaction Status Date / Time NICKY Inhibitors Allergy Unknown abdominal Verified 10/02/23 14:41 pain atorvastatin Allergy Unknown abdominal Verified 10/02/23 14:41 pain amlodipine AdvReac Mild Dizziness Verified 10/02/23 14:41 lisinopril AdvReac Cough Verified 10/02/23 14:41 Review of Systems Review of Systems: All systems are reviewed and are negative unless stated otherwise in the HPI. [facility] Past Medical History Medical History Back pain Benign essential HTN BP (high blood pressure) Degenerative joint disease of knee Effusion, right knee Glaucoma Hypercalcemia Knee pain, right Lumbar spondylosis Mixed hyperlipidemia Type 2 diabetes mellitus with diabetic chronic kidney disease Type 2 diabetes mellitus without complications Family History Family History Father Hypertension Cerebrovascular accident Sibling Hypertension Cerebrovascular accident Mother Family history of macular degeneration Social History Social History Social History: Smoking packs per day: 1 Smoking cigarettes per day: 20.0 Years smoked: 10 Smoking pack-years: 10.00 Smoking status: Former smoker Tobacco type: cigarettes Second hand tobacco smoke exposure: No Smoking end date: 11/18/79 Alcohol intake: former Alcohol use details: STOPPED YRS AGO D/T MEDICATIONS Substance use: never Substance use type: does not use Living arrangements: alone Occupation/Education: retired Gender identity (if verbalized by the patient): Female Sexual Orientation (if Verbalized by the Patient): Straight or Heterosexual Spiritual care concerns: No Exam Narrative: General: Alert, awake, afebrile, in no acute distress. HEENT: PERRL, no rhinorrhea, no post nasal drip, oropharynx clear. Neck: Trachea midline, no JVD, no lymphadenopathy. Cardiovascular: Regular rate and rhythm, no murmurs, rubs or gallops, no
[2023-10-02] MEDS: HYDROcodone/acetaminophen (*CRX) 5-325 MG TABLET 1 TAB PO (15:40)
[2023-10-02 15:43] LABS: Basophils Percent Auto 0.2 % (0.2-1.2); Eosinophils Absolute Auto 0.2 K/mm3 (0-0.3); Eosinophils Percent Auto 1.7 % (0-4.4); Hematocrit 36.6 % (37.0-47.0); Immature Granulocyte Absolute 0.05 K/mm3 (0.00-0.031); Immature Granulocyte Percent A 0.4 % (0-0.5); Lymphocytes Absolute Auto 2.66 K/mm3 (0.9-3.2); Lymphocytes Percent Auto 20.1 % (18.3-44.2); Mean Corpuscular HGB Conc 32.8 g/dl (32-36); Mean Corpuscular Hemoglobin 28.4 pg (26-34); Mean Corpuscular Volume 86.7 fl (80-100); Mean Platelet Volume 10.2 fl (7.4-10.4); Monocytes Absolute Auto 0.9 K/mm3 (0.1-0.6); Monocytes Percent Auto 6.6 % (2.6-8.5); Neutrophils Absolute Auto 9.4 K/mm3 (1.3-6.7); Platelet Count Result 270 k/mm3 (150-375); Red Blood Count 4.22 M/mm3 (4.2-5.4); Red Cell Distribution Width 12.6 % (11.5-14.5); White Blood Count 13.3 K/mm3 (4.5-10.0)
[2023-10-02 15:56] LABS: Alanine Aminotransferase 19 U/L (6-35); Albumin Level 4.4 g/dL (3.5-5.1); Alkaline Phosphatase 70 U/L (38-126); Anion Gap 13 mmol/L (8-16); Aspartate Amino Transferase 23 U/L (14-36); Bilirubin,Total 0.5 mg/dL (0.2-1.3); Blood Urea Nitrogen 27 mg/dL (7-17); Calcium 10.5 mg/dL (8.4-10.2); Carbon Dioxide 25 mmol/L (22-30); Chloride 101 mmol/L (98-107); Estimated CRCL calculation 41 ml/min; Estimated Glomerular Filt Rate > 60; Glucose 141 mg/dL (65-110); Potassium 3.4 mmol/L (3.4-5.0); Sodium 139 mmol/L (137-145)
[2023-10-02] MEDS: KETOROLAC 30 MG/ML VIAL (*BKC) IM (17:51)
[2023-10-02 18:56] LABS: Hemoglobin A1C 7.7 % (<5.7)
[2023-10-02 19:18] VITALS: BP 141/84; PULSE 62; RESP 16; O2SAT 96
--- NOTE | 2023-10-02 20:42 | PC.NURSE ---
This RN was not notified that pt had a bed.
--- NOTE | 2023-10-02 20:46 | PC.NURSE ---
Report called to SHASTA Kennedy. RN asked for pt to have an IV before being brought up.
[2023-10-02 20:56] VITALS: BP 158/71; PULSE 63; RESP 21; O2SAT 99
[2023-10-02 21:19] VITALS: BMI 26.5
--- NOTE | 2023-10-02 21:28 | ADMGEN ---
This patient, Diana Haynes, was admitted to [address] [facility] Surg Room 311-01. Patient/family oriented to hospital policies and general routines including ID bracelet, bed and alarms, visiting hours, pain management, procedures, bathroom and other care routines, personal items, smoking policy, room service/diet, and visiting hours. Information on how to activate the Rapid Response Team has been discussed. Patient/Family are encouraged to report perceived risks to care and to ask questions if they do not understand what they are told or what they should do.
[2023-10-02 21:40] VITALS: BP 125/89; PULSE 62; RESP 18; TEMP 36.2; O2SAT 99
[2023-10-02 21:46] LABS: Glucose Point of Care 148 mg/dl (65-105)
--- NOTE | 2023-10-02 22:34 | PM.IMHP ---
H&P: HPI History of Present Illness Date/Time: 10/02/23 22:34 Chief Complaint: Hip and Leg Pain Narrative: 83 y/o F presents here with R hip and R calf pain with PMH of avascular necrosis of the right hip, HTN, glaucoma, HLD, type 2 diabetes. Patient reports that she had pre-surgical clearance done in July for hip replacement related to avascular necrosis of her right hip. At that time her A1c was 8, surgery postponed until A1c below 7.5. Patient was placed on metformin, unclear if newly initiated or increased from 500 mg b.i.d. to 1000 mg b.i.d. Patient reports poor compliance with taking her metformin as 1000 mg b.i.d., frequently takes it as 1 pill (500 mg) b.i.d. No adverse effects from medication, just reports that she is tired of taking pills . She reports that she has had increasing pain to her posterior leg, initially believed to be sciatica and placed on medication 3 days ago (unclear what). Pain in LLE limiting patient and she is unable to walk at this time. Has been more sedentary as of late. Pain primarily in right calf and posterior knee. No erythema or swelling to calf or knee. She does report that she has had increased lower extremity edema for the past 3 months, without shortness of breath. Review of Systems Review of Systems: All systems reviewed & are unremarkable except as noted in HPI and below PMFSH Past Medical History Medical History Back pain Benign essential HTN BP (high blood pressure) Degenerative joint disease of knee Effusion, right knee Glaucoma Hypercalcemia Knee pain, right Lumbar spondylosis Mixed hyperlipidemia Type 2 diabetes mellitus with diabetic chronic kidney disease Type 2 diabetes mellitus without complications Family History Family History Father Hypertension Cerebrovascular accident Sibling Hypertension Cerebrovascular accident Mother Family history of macular degeneration Social History Social History Social History: Smoking packs per day: 1 Smoking cigarettes per day: 20.0 Years smoked: 10 Smoking pack-years: 10.00 Smoking status: Former smoker Tobacco type: cigarettes Second hand tobacco smoke exposure: No Smoking end date: 11/18/79 Alcohol intake: never Alcohol use details: STOPPED YRS AGO D/T MEDICATIONS Substance use: never Substance use type: does not use Lack of Transportation: No Lack of Food: Never True Current Housing: I Have Housing Concerned About Future Housing: No Difficulty Paying Gas/Electric Bills: No Difficulty Paying for Meds: No Currently Unemployed: No Education: High School Diploma/GED Difficulty w/ Childcare or Family Care: No Living arrangements: alone Occupation/Education: retired Gender identity (if verbalized by the patient): Female Sexual Orientation (if Verbalized by the Patient): Straight or Heterosexual Spiritual care concerns: No Meds Home Medications and Allergies Home Medications Medication Instructions Recorded Confirmed Type aspirin 81 mg tablet,delayed 81 mg PO DAILY 10/12/19 10/02/23 History release (Adult Low Dose Aspirin) latanoprost 0.005 % eye drops 1 drop ophthalmic (eye) QPM 10/12/19 10/02/23 History timolol 0.5 % eye drops 1 drop ophthalmic (eye) Q12H 10/12/19 10/02/23 History ergocalciferol (vitamin D2) 1,250 See Rx Instructions .Route 03/11/23 10/02/23 Rx mcg (50,000 unit) capsule .COMPLEX #14 caps nifedipine 30 mg tablet,extended 30 mg PO DAILY #90 tabs 07/17/23 10/02/23 Rx release 24 hr (Procardia XL) acetaminophen 500 mg tablet 1,000 mg PO QID PRN Pain 09/25/23 10/02/23 History metformin 500 mg tablet 500 mg BID 09/25/23 10/02/23 History celecoxib 100 mg capsule (Celebrex) 100 mg PO BID #60 caps 09/30/23 10/02/23 Rx clonidine HCl 0.2 mg tablet 0.2 mg PO TID
[2023-10-03 04:41] VITALS: BP 202/92; PULSE 68; RESP 18; TEMP 35.7; O2SAT 100
[2023-10-03 04:55] VITALS: BP 202/92
[2023-10-03] MEDS: hydrALAZINE HCL 20 MG/ML VIAL 10 MG IV PUSH (05:33)
[2023-10-03 06:20] VITALS: BP 190/86
[2023-10-03] MEDS: NIFEdipine 30 MG TAB.ER.24 PO (06:29)
[2023-10-03] MEDS: METOPROLOL SUCCINATE EXT REL 100 MG TABCR PO (06:29)
[2023-10-03] MEDS: cloNIDine HCL 0.2 MG TABLET PO ×3 (06:29→17:22)
[2023-10-03] MEDS: FUROSEMIDE 20 MG TABLET PO (08:50)
[2023-10-03] MEDS: ROSUVASTATIN 5 MG TABLET PO (08:50)
[2023-10-03] MEDS: TIMOLOL MALEATE 0.5% OP SOLN 5 ML BOTTLE 1 DROP EACH EYE ×2 (08:51→21:35)
[2023-10-03 08:52] LABS: Glucose Point of Care 173 mg/dl (65-105)
--- NOTE | 2023-10-03 11:24 | PM.CNOR ---
Assessment and Plan Assessment and plan (1) Osteoarthritis of right hip: Qualifiers: Osteoarthritis type: unspecified Qualified Code(s): M16.11 - Unilateral primary osteoarthritis, right hip Code(s): M16.11 - Unilateral primary osteoarthritis, right hip Status: Acute Plan 83-year-old female with a severely arthritic right hip. A1c redraw was 7.7 which is an improvement. Therapy will be ordered to help get her mobilized. She was instructed to follow-up with Dr. Ortiz when her A1c is 7.5 or below. History of Present Illness HPI Consult date: 10/03/23 Chief complaint: R Hip OA/Necrosis, Inability to Ambulate Narrative: 83-year-old female who has got osteoarthritis/AVN right hip. She had been scheduled for total hip replacement in August however her hemoglobin A1c was eight. She was told would have to be 7.5 or below in order to be able to move forward with the surgery. She had been doing a bit more walking with her walker and had increasing pain in her right leg. She came to the ER yesterday with pain in her right leg radiating down towards her foot. When she lay still she does not really have that much discomfort. She is resting comfortably in bed. Review of Systems Review of Systems: All systems reviewed & are unremarkable except as noted in HPI and below PMFSH Past Medical History Medical History Back pain Benign essential HTN BP (high blood pressure) Degenerative joint disease of knee Effusion, right knee Glaucoma Hypercalcemia Knee pain, right Lumbar spondylosis Mixed hyperlipidemia Type 2 diabetes mellitus with diabetic chronic kidney disease Type 2 diabetes mellitus without complications Family History Family History Father Hypertension Cerebrovascular accident Sibling Hypertension Cerebrovascular accident Mother Family history of macular degeneration Social History Social History Social History: Smoking packs per day: 1 Smoking cigarettes per day: 20.0 Years smoked: 10 Smoking pack-years: 10.00 Smoking status: Former smoker Tobacco type: cigarettes Second hand tobacco smoke exposure: No Smoking end date: 11/18/79 Alcohol intake: never Alcohol use details: STOPPED YRS AGO D/T MEDICATIONS Substance use: never Substance use type: does not use Lack of Transportation: No Lack of Food: Never True Current Housing: I Have Housing Concerned About Future Housing: No Difficulty Paying Gas/Electric Bills: No Difficulty Paying for Meds: No Currently Unemployed: No Education: High School Diploma/GED Difficulty w/ Childcare or Family Care: No Living arrangements: alone Occupation/Education: retired Gender identity (if verbalized by the patient): Female Sexual Orientation (if Verbalized by the Patient): Straight or Heterosexual Spiritual care concerns: No Meds Home Medications and Allergies Home Medications Medication Instructions Recorded Confirmed Type aspirin 81 mg tablet,delayed 81 mg PO DAILY 10/12/19 10/02/23 History release (Adult Low Dose Aspirin) latanoprost 0.005 % eye drops 1 drop ophthalmic (eye) QPM 10/12/19 10/02/23 History timolol 0.5 % eye drops 1 drop ophthalmic (eye) Q12H 10/12/19 10/02/23 History ergocalciferol (vitamin D2) 1,250 See Rx Instructions .Route 03/11/23 10/02/23 Rx mcg (50,000 unit) capsule .COMPLEX #14 caps nifedipine 30 mg tablet,extended 30 mg PO DAILY #90 tabs 07/17/23 10/02/23 Rx release 24 hr (Procardia XL) acetaminophen 500 mg tablet 1,000 mg PO QID PRN Pain 09/25/23 10/02/23 History metformin 500 mg tablet 500 mg BID 09/25/23 10/02/23 History celecoxib 100 mg capsule (Celebrex) 100 mg PO BID #60 caps 09/30/23 10/02/23 Rx clonidine HCl 0.2 mg tablet 0.2 mg PO TID 10/02/23 10/02/23 History furosemide 20 mg tabl
[2023-10-03 11:56] VITALS: BMI 26.5
[2023-10-03 12:01] LABS: Glucose Point of Care 212 mg/dl (65-105)
[2023-10-03] MEDS: MORPHINE SULFATE (*CRX) 2 MG/ML INJ IV PUSH ×3 (13:02→21:38)
[2023-10-03] MEDS: INSULIN ASPART (*BKC) 100 UNITS/ML SUB-Q (13:02)
--- NOTE | 2023-10-03 13:02 | PM.IMPN ---
Progress Note: A&P Assessment and Plan (1) Avascular necrosis of bone of right hip: Code(s): M87.051 - Idiopathic aseptic necrosis of right femur Status: Acute (2) Osteoarthritis of right hip: Qualifiers: Osteoarthritis type: unspecified Qualified Code(s): M16.11 - Unilateral primary osteoarthritis, right hip Code(s): M16.11 - Unilateral primary osteoarthritis, right hip Status: Acute (3) Type 2 diabetes mellitus without complications: Code(s): E11.9 - Type 2 diabetes mellitus without complications Status: Acute Plan 83F w/ PMH avascular necrosis of R hip, HTN, glaucoma, HLD, NIDDM, HTN, obesity presents with right leg pain unable to be managed at home. Admitted on 10/03 1) R hip avascular necrosis - pain is greatly improved. continue prn meds - orthopedics consulted, her HBA1c is still too high for them to take to surgery. they advise treat diabetes more and f/u as outpatient - PT consulted for assistance in mobility 2) NIDDM - HBA1c down from 8 to 7.7 this admission. However, has room to go. She has been non compliant with metformin and understands she does need to take it. restart her previously prescribed dose of 1000mg po bid - f/u Hba1c outpatient - ISS with accuchecks 3) leukocytosis - likely reactive. check CXR, UA, and trend WBC with pro minerva 4) HTN urgency - she skipped meds last night while she was in the ER, responded well to hydralazine. cont hydralazine IV prn - restarted home meds. cont to trend BP FEN: saline lock IV, full diet GI prophylaxis: not indicated DVT prophylaxis: lovenox Lines: pIV Code Status: Full Code Dispo: stable. More than 35 minutes spent on chart review, patient interaction and assessment and plan. Subjective Date/time seen: 10/03/23 13:02 Interval history: NAOE. pt denies any pain at the right leg, but a sore back. she denies cough, SOB, chest pain, urinary symptoms. she admits to not being compliant with metformin Review of Systems Review of Systems: All systems reviewed & are unremarkable except as noted in HPI and below Exam Const: General: comfortable and no acute distress Other: obese Eyes: Pupils: Equal, round and reactive pupils present Neck: Neck: supple Resp: Effort & Inspection: normal respiratory effort Auscultation: clear to auscultation bilaterally Cardio: Rate: regular rate Rhythm: regular rhythm Heart sounds: no gallops, no murmurs and no rubs GI: GI Palp: Yes Soft to palpation and No Tenderness to palpation present (GI) Auscultation: normal bowel sounds Neuro: Motor exam (neuro): 5/5 motor strength present throughout Extrem: General: no edema Objective Data Vital Signs Vital Signs: Vital Signs - 24 hr 10/02/23 14:35 10/02/23 19:18 10/02/23 20:56 Temperature 97.2 F L Pulse Rate 75 62 63 Respiratory Rate 16 16 21 H Blood Pressure 153/84 H 141/84 H 158/71 H Pulse Oximetry 99 96 99 Oxygen Delivery Room Air 10/02/23 22:31 10/02/23 21:40 10/03/23 04:55 Temperature 97.1 F L Pulse Rate 62 Respiratory Rate 18 Blood Pressure 125/89 202/92 H Pulse Oximetry 99 Oxygen Delivery Room Air 10/03/23 04:41 10/03/23 06:20 10/03/23 08:00 Temperature 96.3 F L Pulse Rate 68 Respiratory Rate 18 Blood Pressure 202/92 H 190/86 H Pulse Oximetry 100 Oxygen Delivery Room Air Intake/Output Intake/Output: Intake & Output 09/30/23 10/01/23 10/02/23 10/03/23 23:59 23:59 23:59 23:59 Intake Total 565 Balance 565 Meds/Results Medications: Active Medications Generic Name Dose Route Start Last Admin Trade Name Vinh PRN Reason Stop Dose Admin Acetaminophen 1,000 mg 10/03/23 04:01 Acetaminophen 500 Mg Tablet PO QID PRN Pain Clonidine HCl 0.2 mg 10/03/23 09:00 10/03/23 06:29 Clonidine Hcl 0.2 Mg Tablet PO 0.2 mg TID BECCA Administration Dextrose 12.5 gm 10/03/23 04:00 Dextrose 50% 25 Gm/50 Ml Syringe IV PUSH
[2023-10-03] MEDS: ENOXAPARIN 40 MG/0.4 ML SYRINGE SUB-Q (13:14)
[2023-10-03] MEDS: ASPIRIN 81 MG ENTERIC TABLET PO (13:14)
[2023-10-03 14:00] VITALS: BP 134/82; PULSE 70; RESP 18; TEMP 36.6; O2SAT 98
[2023-10-03 17:09] LABS: Glucose Point of Care 157 mg/dl (65-105)
[2023-10-03] MEDS: metFORMIN HCL 500 MG TABLET 1000 MG PO (17:22)
[2023-10-03] MEDS: LATANOPROST 0.005% OP SOLN 2.5 ML BTL 1 DROP EACH EYE (17:23)
[2023-10-03 22:00] VITALS: BP 131/56; PULSE 72; RESP 16; TEMP 36.2; O2SAT 98
[2023-10-04] VITALS (7 sets, daily range): BP systolic 101–149; BP diastolic 52–70; PULSE 79–81; RESP 16–18; TEMP 36–37.5; O2SAT 97–99
[2023-10-04 01:56] LABS: Glucose Point of Care 163 mg/dl (65-105)
[2023-10-04] MEDS: MORPHINE SULFATE (*CRX) 2 MG/ML INJ IV PUSH ×3 (02:56→17:44)
[2023-10-04 07:15] LABS: Basophils Percent Auto 0.2 % (0.2-1.2); Hematocrit 41.5 % (37.0-47.0); Hemoglobin 13.5 g/dL (12.0-15.0); Immature Granulocyte Absolute 0.08 K/mm3 (0.00-0.031); Immature Granulocyte Percent A 0.5 % (0-0.5); Lymphocytes Absolute Auto 1.06 K/mm3 (0.9-3.2); Lymphocytes Percent Auto 6.1 % (18.3-44.2); Mean Corpuscular HGB Conc 32.5 g/dl (32-36); Mean Corpuscular Hemoglobin 28.9 pg (26-34); Mean Corpuscular Volume 88.9 fl (80-100); Monocytes Absolute Auto 1.4 K/mm3 (0.1-0.6); Monocytes Percent Auto 7.8 % (2.6-8.5); Neutrophils Absolute Auto 14.7 K/mm3 (1.3-6.7); Neutrophils Percent Auto 85.4 % (45.5-73.1); Platelet Count Result 242 k/mm3 (150-375); Red Blood Count 4.67 M/mm3 (4.2-5.4); Red Cell Distribution Width 12.8 % (11.5-14.5); White Blood Count 17.3 K/mm3 (4.5-10.0)
[2023-10-04 07:20] LABS: Potassium 3.1 mmol/L (3.4-5.0)
[2023-10-04 07:28] LABS: Anion Gap 13 mmol/L (8-16); Blood Urea Nitrogen 18 mg/dL (7-17); Calcium 10.4 mg/dL (8.4-10.2); Carbon Dioxide 26 mmol/L (22-30); Chloride 98 mmol/L (98-107); Estimated CRCL calculation 50 ml/min; Estimated Glomerular Filt Rate > 60; Glucose 194 mg/dL (65-110); Magnesium 1.3 mg/dL (1.6-2.3); Sodium 137 mmol/L (137-145)
[2023-10-04 07:46] LABS: Glucose Point of Care 190 mg/dl (65-105)
[2023-10-04 07:58] LABS: Procalcitonin 0.2 ng/mL
[2023-10-04] MEDS: ROSUVASTATIN 5 MG TABLET PO (08:25)
[2023-10-04] MEDS: TIMOLOL MALEATE 0.5% OP SOLN 5 ML BOTTLE 1 DROP EACH EYE ×2 (08:25→21:08)
[2023-10-04] MEDS: ENOXAPARIN 40 MG/0.4 ML SYRINGE SUB-Q (08:26)
[2023-10-04] MEDS: METOPROLOL SUCCINATE EXT REL 100 MG TABCR PO (08:26)
[2023-10-04] MEDS: metFORMIN HCL 500 MG TABLET 1000 MG PO ×2 (08:26→16:19)
[2023-10-04] MEDS: FUROSEMIDE 20 MG TABLET PO (08:26)
[2023-10-04] MEDS: NIFEdipine 30 MG TAB.ER.24 PO (08:26)
[2023-10-04] MEDS: cloNIDine HCL 0.2 MG TABLET PO ×3 (08:26→16:19)
[2023-10-04] MEDS: ASPIRIN 81 MG ENTERIC TABLET PO (08:27)
[2023-10-04] MEDS: INSULIN ASPART (*BKC) 100 UNITS/ML SUB-Q ×3 (11:10→21:03)
[2023-10-04 11:13] LABS: Glucose Point of Care 332 mg/dl (65-105)
[2023-10-04] MEDS: LATANOPROST 0.005% OP SOLN 2.5 ML BTL 1 DROP EACH EYE (16:21)
[2023-10-04 16:48] LABS: Glucose Point of Care 280 mg/dl (65-105)
--- NOTE | 2023-10-04 16:57 | PM.IMPN ---
Progress Note: A&P Assessment and Plan (1) Right leg pain: Code(s): M79.604 - Pain in right leg Status: Acute (2) Avascular necrosis of bone of right hip: Code(s): M87.051 - Idiopathic aseptic necrosis of right femur Status: Acute (3) Leukocytosis: Qualifiers: Leukocytosis type: unspecified Qualified Code(s): D72.829 - Elevated white blood cell count, unspecified Code(s): D72.829 - Elevated white blood cell count, unspecified Status: Inactive Plan 83F w/ PMH avascular necrosis of R hip, HTN, glaucoma, HLD, NIDDM, HTN, obesity presents with right leg pain unable to be managed at home. Admitted on 10/03 1) R hip avascular necrosis - pain is greatly improved. continue prn meds - orthopedics consulted, her HBA1c is still too high for them to take to surgery. they advise getting her HBA1c down and f/u as outpatient - PT consulted for assistance in mobility 2) NIDDM - HBA1c down from 8 to 7.7 this admission. However, has room to go. She has been non compliant with metformin and understands she does need to take it. restart her previously prescribed dose of 1000mg po bid - f/u Hba1c outpatient - ISS with accuchecks 3) leukocytosis - likely reactive. check CXR, UA, and trend WBC with pro minerva - 10/04, uptrending with high procal. start ceftriaxone and vanc (+ MRSA in nares). unclear source, still waiting on urinalysis, spoke with nursing, they are obtaining. 4) HTN urgency - she skipped meds last night while she was in the ER, responded well to hydralazine. cont hydralazine IV prn - restarted home meds. cont to trend BP - 10/04 improved. FEN: saline lock IV, full diet GI prophylaxis: not indicated DVT prophylaxis: lovenox Lines: pIV Code Status: Full Code Dispo: stable. PT consulted, will review notes for dispo More than 35 minutes spent on chart review, patient interaction and assessment and plan. Subjective Date/time seen: 10/04/23 16:57 Interval history: NAOE. patient has no complaints aside from feeling like she might be dehydrated. she denies chest pain, cough, shortness of breath, fever, abdominal pain, dysuria, n/v/d. Review of Systems Review of Systems: All systems reviewed & are unremarkable except as noted in HPI and below Exam Const: General: comfortable and no acute distress Other: obese Eyes: Pupils: Equal, round and reactive pupils present Neck: Neck: supple Resp: Effort & Inspection: normal respiratory effort Cardio: Rate: regular rate Rhythm: regular rhythm GI: Inspection: non-distended GI Palp: Yes Soft to palpation and No Tenderness to palpation present (GI) Auscultation: normal bowel sounds Extrem: General: no edema Objective Data Vital Signs Vital Signs: Vital Signs - 24 hr 10/03/23 21:38 10/03/23 22:00 10/04/23 06:00 Temperature 97.1 F L 99.5 F Pulse Rate 72 80 Respiratory Rate 16 16 Blood Pressure 131/56 L 149/70 H Pulse Oximetry 98 97 Oxygen Delivery Room Air 10/04/23 08:26 10/04/23 08:00 10/04/23 14:00 Temperature 96.8 F L Pulse Rate 80 81 Respiratory Rate 18 Blood Pressure 139/65 Pulse Oximetry 97 99 Oxygen Delivery Room Air 10/04/23 14:57 Temperature Pulse Rate Respiratory Rate Blood Pressure Pulse Oximetry Oxygen Delivery Room Air Intake/Output Intake/Output: Intake & Output 10/01/23 10/02/23 10/03/23 10/04/23 23:59 23:59 23:59 23:59 Intake Total 565 480 Output Total 300 475 Balance 265 5 Meds/Results Medications: Active Medications Generic Name Dose Route Start Last Admin Trade Name Freq PRN Reason Stop Dose Admin Acetaminophen 1,000 mg 10/03/23 04:01 Acetaminophen 500 Mg Tablet PO QID PRN Pain Aspirin 81 mg 10/03/23 13:05 10/04/23 08:27 Aspirin 81 Mg Enteric Tablet PO 81 mg QAM BECCA Administration Clonidine HCl 0.2 mg 10/03/23 09:00 10/04/23 16:19 Clonidine Hcl 0.2 Mg Tablet PO 0.2 mg TID BECCA Admin
[2023-10-04] MEDS: MAGNESIUM SULFATE 3GM/D5W100ML 3 GM/100 ML BAG IVPB (18:15)
[2023-10-04] MEDS: POTASSIUM CHLORIDE 20 MEQ ER TABLET 40 MEQ PO (18:15)
[2023-10-04] MEDS: cefTRIAXone 2 GM/NS 100 ML 2 GM/100 ML BAG IVPB (21:02)
[2023-10-04 23:50] LABS: Glucose Point of Care 392 mg/dl (65-105)
[2023-10-05 01:30] LABS: Bacteria Urine Rare /hpf; RBC Urine 0-2 /hpf (0-2); Squamous Epithelial Cell Urine Few /hpf (Few); WBC Urine 0-5 /hpf (0-3)
[2023-10-05 01:38] LABS: Appearance Urine Clear (Clear); Bilirubin Urine Negative (Negative); Blood Urine Negative (Negative); Color Urine Dark Yellow (Yellow); Glucose Urine UA 3+ mg/dL (Negative); Ketones Urine 1+ mg/dL (Negative); Leukocyte Esterase Ur Negative LEU/UL (NEGATIVE); Nitrate Urine Negative (Negative); Protein Urine 2+ mg/dL (Negative); Specific Grav Ur 1.022 (1.001-1.035)
[2023-10-05 01:42] LABS: Add Urine Microscopic? YES
[2023-10-05 04:55] VITALS: BP 127/66; PULSE 85; RESP 16; TEMP 36.3; O2SAT 98
[2023-10-05 07:21] LABS: Basophils Percent Auto 0.2 % (0.2-1.2); Eosinophils Percent Auto 0.2 % (0-4.4); Hematocrit 32.5 % (37.0-47.0); Hemoglobin 10.8 g/dL (12.0-15.0); Immature Granulocyte Absolute 0.06 K/mm3 (0.00-0.031); Immature Granulocyte Percent A 0.4 % (0-0.5); Lymphocytes Absolute Auto 1.79 K/mm3 (0.9-3.2); Lymphocytes Percent Auto 11.6 % (18.3-44.2); Mean Corpuscular HGB Conc 33.2 g/dl (32-36); Mean Corpuscular Hemoglobin 28.7 pg (26-34); Mean Corpuscular Volume 86.4 fl (80-100); Monocytes Absolute Auto 0.9 K/mm3 (0.1-0.6); Monocytes Percent Auto 6.1 % (2.6-8.5); Neutrophils Absolute Auto 12.6 K/mm3 (1.3-6.7); Neutrophils Percent Auto 81.5 % (45.5-73.1); Platelet Count Result 192 k/mm3 (150-375); Red Blood Count 3.76 M/mm3 (4.2-5.4); Red Cell Distribution Width 12.9 % (11.5-14.5); White Blood Count 15.5 K/mm3 (4.5-10.0)
[2023-10-05 07:38] LABS: Alanine Aminotransferase 13 U/L (6-35); Albumin Level 3.7 g/dL (3.5-5.1); Alkaline Phosphatase 61 U/L (38-126); Anion Gap 9 mmol/L (8-16); Aspartate Amino Transferase 15 U/L (14-36); Bilirubin,Total 0.7 mg/dL (0.2-1.3); Blood Urea Nitrogen 31 mg/dL (7-17); Carbon Dioxide 27 mmol/L (22-30); Chloride 95 mmol/L (98-107); Estimated CRCL calculation 36 ml/min; Estimated Glomerular Filt Rate 53; Glucose 190 mg/dL (65-110); Potassium 3.4 mmol/L (3.4-5.0); Sodium 131 mmol/L (137-145)
[2023-10-05 08:02] LABS: Glucose Point of Care 226 mg/dl (65-105)
[2023-10-05 08:14] LABS: Procalcitonin 1.8 ng/mL
[2023-10-05] MEDS: INSULIN ASPART (*BKC) 100 UNITS/ML SUB-Q ×4 (08:42→21:36)
[2023-10-05] MEDS: metFORMIN HCL 500 MG TABLET 1000 MG PO ×2 (08:43→17:36)
[2023-10-05] MEDS: NIFEdipine 30 MG TAB.ER.24 PO (08:44)
[2023-10-05] MEDS: FUROSEMIDE 20 MG TABLET PO (08:44)
[2023-10-05] MEDS: cloNIDine HCL 0.2 MG TABLET PO ×3 (08:44→17:36)
[2023-10-05] MEDS: ROSUVASTATIN 5 MG TABLET PO (08:44)
[2023-10-05] MEDS: ASPIRIN 81 MG ENTERIC TABLET PO (08:44)
[2023-10-05] MEDS: TIMOLOL MALEATE 0.5% OP SOLN 5 ML BOTTLE 1 DROP EACH EYE ×2 (08:45→21:37)
[2023-10-05] MEDS: ENOXAPARIN 40 MG/0.4 ML SYRINGE SUB-Q (08:48)
[2023-10-05 08:49] VITALS: PULSE 76
[2023-10-05] MEDS: METOPROLOL SUCCINATE EXT REL 100 MG TABCR PO (08:49)
[2023-10-05] MEDS: MORPHINE SULFATE (*CRX) 2 MG/ML INJ IV PUSH (10:16)
[2023-10-05 11:38] LABS: Glucose Point of Care 301 mg/dl (65-105)
[2023-10-05] MEDS: cefTRIAXone 2 GM/NS 100 ML 2 GM/100 ML BAG IVPB (13:26)
[2023-10-05 14:00] VITALS: BP 141/77; PULSE 84; RESP 18; TEMP 37.1; O2SAT 100
[2023-10-05] MEDS: ACETAMINOPHEN 500 MG TABLET 1000 MG PO (14:44)
--- NOTE | 2023-10-05 15:39 | PM.IMPN ---
Progress Note: A&P Assessment and Plan (1) Right leg pain: Code(s): M79.604 - Pain in right leg Status: Acute (2) Osteoarthritis of right hip: Qualifiers: Osteoarthritis type: unspecified Qualified Code(s): M16.11 - Unilateral primary osteoarthritis, right hip Code(s): M16.11 - Unilateral primary osteoarthritis, right hip Status: Acute Plan 83F w/ PMH avascular necrosis of R hip, HTN, glaucoma, HLD, NIDDM, HTN, obesity presents with right leg pain unable to be managed at home. Admitted on 10/03 1) R hip avascular necrosis - pain is greatly improved. continue prn meds - orthopedics consulted, her HBA1c is still too high for them to take to surgery. they advise getting her HBA1c down and f/u as outpatient - PT consulted for assistance in mobility, pending placement 2) NIDDM - HBA1c down from 8 to 7.7 this admission. However, has room to go. She has been non compliant with metformin and understands she does need to take it. restarted her previously prescribed dose of 1000mg po bid - f/u Hba1c outpatient - ISS with accuchecks 3) leukocytosis - likely reactive. no evidence of infection clinically but her pro minerva is higher. wbc coming down now after starting ceftriaxone and vancomycin on 10/04. continue. 4) HTN urgency - improved after starting home meds 5) dehydration with hyponatremia - start NS @ 100ml/hr and re-assess in AM FEN: IVF, full diet GI prophylaxis: not indicated DVT prophylaxis: lovenox Lines: pIV Code Status: Full Code Dispo: stable. PT consulted, pending placement. More than 35 minutes spent on chart review, patient interaction and assessment and plan. Subjective Date/time seen: 10/05/23 15:39 Interval history: NAOE. she still feels some right leg pain but it is tolerable. she denies urinary symptoms, sob, cough, chest pain. she feels she is unsafe to go home, needs therapy Review of Systems Review of Systems: All systems reviewed & are unremarkable except as noted in HPI and below Exam Const: General: comfortable and no acute distress Eyes: Pupils: Equal, round and reactive pupils present Neck: Neck: supple Resp: Effort & Inspection: normal respiratory effort Auscultation: clear to auscultation bilaterally Cardio: Rate: regular rate Rhythm: regular rhythm Heart sounds: no gallops, no murmurs and no rubs GI: GI Palp: Yes Soft to palpation and No Tenderness to palpation present (GI) Extrem: General: no edema Objective Data Vital Signs Vital Signs: Vital Signs - 24 hr 10/04/23 20:00 10/04/23 20:30 10/04/23 22:42 Temperature 97 F L Pulse Rate 79 Respiratory Rate 16 Blood Pressure 101/52 L Pulse Oximetry 99 97 97 Oxygen Delivery Room Air Room Air 10/05/23 04:55 10/05/23 08:49 10/05/23 14:00 Temperature 97.4 F L 98.7 F Pulse Rate 85 76 84 Respiratory Rate 16 18 Blood Pressure 127/66 141/77 H Pulse Oximetry 98 100 Oxygen Delivery Intake/Output Intake/Output: Intake & Output 10/02/23 10/03/23 10/04/23 10/05/23 23:59 23:59 23:59 23:59 Intake Total 790 930 0194 Output Total 300 475 250 Balance 265 445 850 Meds/Results Medications: Active Medications Generic Name Dose Route Start Last Admin Trade Name Freq PRN Reason Stop Dose Admin Acetaminophen 1,000 mg 10/03/23 04:01 10/05/23 14:44 Acetaminophen 500 Mg Tablet PO 1,000 mg QID PRN Administration Pain Aspirin 81 mg 10/03/23 13:05 10/05/23 08:44 Aspirin 81 Mg Enteric Tablet PO 81 mg QAM BECCA Administration Clonidine HCl 0.2 mg 10/03/23 09:00 10/05/23 13:26 Clonidine Hcl 0.2 Mg Tablet PO 0.2 mg TID BECCA Administration Dextrose 12.5 gm 10/03/23 04:00 Dextrose 50% 25 Gm/50 Ml Syringe IV PUSH PRN PRN Hypoglycemia Protocol Enoxaparin Sodium 40 mg 10/03/23 13:05 10/05/23 08:48 Enoxaparin 40 Mg/0.4 Ml Syringe SUB-Q 40 mg DAILY BECCA Administration Ergocalciferol 1,250 units 10/03
[2023-10-05 16:53] LABS: Glucose Point of Care 245 mg/dl (65-105)
[2023-10-05] MEDS: SODIUM CHLORIDE 0.9% IV 1,000 ML 100 ML IV CONT (17:31)
[2023-10-05] MEDS: VANCOMYCIN 1,250 MG/NS 250 ML 1,250 MG/250 ML BAG 166.67 MG IVPB (17:31)
[2023-10-05] MEDS: LATANOPROST 0.005% OP SOLN 2.5 ML BTL 1 DROP EACH EYE (17:37)
--- NOTE | 2023-10-05 19:08 | PC.NURSE ---
On 10/05/23, the COMPUTATIONAL LINGUIST, Analy, provided care and completed [facility] documentation on this patient. I have reviewed the COMPUTATIONAL LINGUIST's documentation and agree with the findings.
[2023-10-05 20:00] VITALS: O2SAT 99
[2023-10-05 20:27] VITALS: BP 105/66; PULSE 74; RESP 16; TEMP 36.2; O2SAT 99
[2023-10-05 20:52] LABS: Glucose Point of Care 317 mg/dl (65-105)
[2023-10-06] MEDS: MORPHINE SULFATE (*CRX) 2 MG/ML INJ IV PUSH (03:41)
[2023-10-06] MEDS: GABAPENTIN 300 MG CAPSULE PO (04:04)
[2023-10-06 04:22] VITALS: BP 138/58; PULSE 61; RESP 16; TEMP 36.6; O2SAT 95
[2023-10-06 07:32] LABS: Basophils Percent Auto 0.1 % (0.2-1.2); Eosinophils Absolute Auto 0.1 K/mm3 (0-0.3); Eosinophils Percent Auto 0.4 % (0-4.4); Hematocrit 31.8 % (37.0-47.0); Hemoglobin 10.2 g/dL (12.0-15.0); Immature Granulocyte Absolute 0.05 K/mm3 (0.00-0.031); Immature Granulocyte Percent A 0.4 % (0-0.5); Lymphocytes Absolute Auto 1.18 K/mm3 (0.9-3.2); Lymphocytes Percent Auto 10.5 % (18.3-44.2); Mean Corpuscular HGB Conc 32.1 g/dl (32-36); Mean Corpuscular Hemoglobin 28.7 pg (26-34); Mean Corpuscular Volume 89.6 fl (80-100); Mean Platelet Volume 11.1 fl (7.4-10.4); Monocytes Absolute Auto 0.7 K/mm3 (0.1-0.6); Neutrophils Absolute Auto 9.2 K/mm3 (1.3-6.7); Neutrophils Percent Auto 82.6 % (45.5-73.1); Platelet Count Result 188 k/mm3 (150-375); Red Blood Count 3.55 M/mm3 (4.2-5.4); Red Cell Distribution Width 12.7 % (11.5-14.5); White Blood Count 11.2 K/mm3 (4.5-10.0)
[2023-10-06 07:40] LABS: Anion Gap 10 mmol/L (8-16); Blood Urea Nitrogen 32 mg/dL (7-17); Calcium 9.9 mg/dL (8.4-10.2); Carbon Dioxide 25 mmol/L (22-30); Chloride 100 mmol/L (98-107); Estimated CRCL calculation 50 ml/min; Estimated Glomerular Filt Rate > 60; Glucose 196 mg/dL (65-110); Magnesium 1.7 mg/dL (1.6-2.3); Potassium 3.7 mmol/L (3.4-5.0); Sodium 135 mmol/L (137-145)
[2023-10-06 08:02] LABS: Procalcitonin 1.3 ng/mL
[2023-10-06 08:26] LABS: Glucose Point of Care 187 mg/dl (65-105)
--- NOTE | 2023-10-06 08:39 | PM.IMPN ---
Subjective Date/time seen: 10/06/23 08:39 Interval history: 83F w/ PMH avascular necrosis of R hip, HTN, glaucoma, HLD, NIDDM, HTN, obesity presents with right leg pain unable to be managed at home. Admitted on 10/03 1) R hip avascular necrosis - pain is greatly improved. continue prn meds - orthopedics consulted, her HBA1c is still too high for them to take to surgery. they advise getting her HBA1c down and f/u as outpatient - PT consulted for assistance in mobility, pending placement 2) NIDDM - HBA1c down from 8 to 7.7 this admission. However, has room to go. She has been non compliant with metformin and understands she does need to take it. restarted her previously prescribed dose of 1000mg po bid - 10/06 her BS have been persistently high, start jardiance starter dose. f/u as outpatient - f/u Hba1c outpatient - ISS with accuchecks 3) leukocytosis - likely reactive. no evidence of infection clinically but her pro minerva is higher. wbc coming down now after starting ceftriaxone and vancomycin on 10/04. continue. cont trending procal as well. 4) HTN urgency - improved after starting home meds 5) dehydration with hyponatremia - improved. d/c IVF. encourage PO intake. FEN: saline lock IV, cardiac diabetic diet GI prophylaxis: not indicated DVT prophylaxis: lovenox Lines: pIV Code Status: Full Code Dispo: stable. PT consulted, pending placement. More than 35 minutes spent on chart review, patient interaction and assessment and plan. Objective Data Vital Signs Vital Signs: Vital Signs - 24 hr 10/05/23 08:49 10/05/23 14:00 10/05/23 08:40 Temperature 98.7 F Pulse Rate 76 84 Respiratory Rate 18 Blood Pressure 141/77 H Pulse Oximetry 100 Oxygen Delivery Room Air 10/05/23 20:27 10/05/23 20:00 10/06/23 04:22 Temperature 97.1 F L 98 F Pulse Rate 74 61 Respiratory Rate 16 16 Blood Pressure 105/66 138/58 L Pulse Oximetry 99 99 95 Oxygen Delivery Room Air Intake/Output Intake/Output: Intake & Output 10/03/23 10/04/23 10/05/23 10/06/23 23:59 23:59 23:59 23:59 Intake Total 144 981 4725 Output Total 300 475 250 350 Balance 880 185 2509 -350 Meds/Results Medications: Active Medications Generic Name Dose Route Start Last Admin Trade Name Vinh PRN Reason Stop Dose Admin Acetaminophen 1,000 mg 10/03/23 04:01 10/05/23 14:44 Acetaminophen 500 Mg Tablet PO 1,000 mg QID PRN Administration Pain Aspirin 81 mg 10/03/23 13:05 10/05/23 08:44 Aspirin 81 Mg Enteric Tablet PO 81 mg QAM BECCA Administration Clonidine HCl 0.2 mg 10/03/23 09:00 10/05/23 17:36 Clonidine Hcl 0.2 Mg Tablet PO 0.2 mg TID BECCA Administration Dextrose 12.5 gm 10/03/23 04:00 Dextrose 50% 25 Gm/50 Ml Syringe IV PUSH PRN PRN Hypoglycemia Protocol Enoxaparin Sodium 40 mg 10/03/23 13:05 10/05/23 08:48 Enoxaparin 40 Mg/0.4 Ml Syringe SUB-Q 40 mg DAILY BECCA Administration Ergocalciferol 1,250 units 10/03/23 09:00 10/04/23 12:52 Ergocalciferol 50,000 Units Capsule PO Not Given Th@0900 BECCA Furosemide 20 mg 10/03/23 09:00 10/05/23 08:44 Furosemide 20 Mg Tablet PO 20 mg QAM BECCA Administration Glucagon 1 mg 10/03/23 04:00 Glucagon For Inj 1 Mg Vial IM PRN PRN Hypoglycemia Protocol Glucose 15 gm 10/03/23 04:00 Glucose Oral Gel 15 Gm Of Glucse In 37.5 Gm Tube PO PRN PRN Hypoglycemia Protocol Hydralazine HCl 10 mg 10/03/23 10:47 Hydralazine Hcl 20 Mg/Ml Vial IV PUSH Q8H PRN Blood Pressure - High Dextrose 1,000 mls @ 100 mls/hr 10/03/23 04:00 Dextrose 5% 1,000 Ml IVPB PRN PRN Hypoglycemia Protocol Ceftriaxone Sodium 2 gm in 100 mls @ 200 mls/hr 10/04/23 16:55 10/05/23 13:56 Rocephin 2 Gm/Ns 100 Ml IVPB Infused DAILY@1200 BECCA Infusion Vancomycin HCl 1,250 mg in 250 mls @ 166.667 mls/hr 10/05/23 18:00 10/05/23 21:00 Vancomycin 1,250 Mg/Ns 250 Ml IV
--- NOTE | 2023-10-06 09:38 | PM.DS ---
DS: Admitting Diagnosis Discharge Date 10/06/23 Admitting Diagnosis pain DS: Discharge Diagnosis Discharge Diagnosis (1) Right leg pain: Code(s): M79.604 - Pain in right leg Status: Acute (2) Avascular necrosis of bone of right hip: Code(s): M87.051 - Idiopathic aseptic necrosis of right femur Status: Acute DS: Summary Hospital Course Hospital Course: 83F w/ PMH avascular necrosis of R hip, HTN, glaucoma, HLD, NIDDM, HTN, obesity presents with right leg pain unable to be managed at home. Admitted on 10/03 for uncontrolled pain. Orthopedic surgery was consulted, Dr. Ortiz recommended patient get her A1c below 7.5% as previously planned, and to follow up with Dr. Ortiz. The patient was non compliant with metformin. She doesn't like to take meds. However after further discussions she agreed to take the prescribed therapy in hopes she would get her R hip surgery completed and pain resolved, as that is her main issue now and causing a debilitated state. Her previously prescribed metformin 1000mg po bid was restarted. However, her BS stayed consistency in high 200's to low 300's therefore Jardiance 10mg po qday was started. BS came down to high 100's. She will follow up with PCP on this medication and all other comorbidities, along with f/u to Dr. Petersen as aforementioned. Of note, she had leukocytosis, positive MRSA growth in nares and mildly elevated procal. Labs trended down with initiation of ceftriaxone and vancomycing but no source othewise identified. Pt educated to alert nursing staff if she has any new symptoms. She will be dc'ed on 3 days of augmentin and another CBC in 2 days to ensure white count resolved completely. She is dc'ed in stable condition to [facility] on 10/06. Full Code during her stay here. More than 30 minutes spent on discharge planning and documentation. Time Spent with Patient Time attestation: Total time spent providing and/or coordinating discharge services: Exam Const: General: cooperative and no acute distress Resp: Effort & Inspection: normal respiratory effort Auscultation: clear to auscultation bilaterally Cardio: Rate: regular rate Rhythm: regular rhythm Heart sounds: S1 normal heart sound present and S2 normal heart sound present GI: GI Palp: No abdominal tenderness Auscultation: normal bowel sounds DS: Data Data Completed and Pending Labs on day of discharge: Labs from last 24 hours 10/06/23 10/06/23 10/05/23 08:07 07:00 20:27 WBC 11.2 H RBC 3.55 L Hgb 10.2 L Hct 31.8 L MCV 89.6 MCH 28.7 MCHC 32.1 RDW 12.7 Plt Count 188 MPV 11.1 H Immature Gran % (Auto) 0.4 Neut % (Auto) 82.6 H Lymph % (Auto) 10.5 L Stokes % (Auto) 6.0 Eos % (Auto) 0.4 Baso % (Auto) 0.1 L Lymph # (Auto) 1.18 Stokes # (Auto) 0.7 H Eos # (Auto) 0.1 Baso # (Auto) 0.0 Abs Immat Gran (auto) 0.05 H Absolute Neuts (auto) 9.2 H Absolute Nucleated RBC 0.0 Nucleated RBC % 0.0 Sodium 135 L Potassium 3.7 Chloride 100 Carbon Dioxide 25 Anion Gap 10 BUN 32 H Creatinine 0.70 Estim Creat Clear Calc 50 Estimated GFR > 60 Glucose 196 H POC Capillary Glucose 187 H 317 H Calcium 9.9 Magnesium 1.7 Procalcitonin 1.3 10/05/23 10/05/23 16:38 11:23 WBC RBC Hgb Hct MCV MCH MCHC RDW Plt Count MPV Immature Gran % (Auto) Neut % (Auto) Lymph % (Auto) Stokes % (Auto) Eos % (Auto) Baso % (Auto) Lymph # (Auto) Stokes # (Auto) Eos # (Auto) Baso # (Auto) Abs Immat Gran (auto) Absolute Neuts (auto) Absolute Nucleated RBC Nucleated RBC % Sodium Potassium Chloride Carbon Dioxide Anion Gap BUN Creatinine Estim Creat Clear Calc Estimated GFR Glucose POC Capillary Glucose 245 H 301 H Calcium Magnesium Procalcitonin Preliminary micro results at discharge 10/05/23 08:44 B
[2023-10-06 09:54] VITALS: PULSE 84
[2023-10-06] MEDS: ENOXAPARIN 40 MG/0.4 ML SYRINGE SUB-Q (09:54)
[2023-10-06] MEDS: metFORMIN HCL 500 MG TABLET 1000 MG PO (09:54)
[2023-10-06] MEDS: METOPROLOL SUCCINATE EXT REL 100 MG TABCR PO (09:54)
[2023-10-06] MEDS: cloNIDine HCL 0.2 MG TABLET PO (09:55)
[2023-10-06] MEDS: NIFEdipine 30 MG TAB.ER.24 PO (09:55)
[2023-10-06] MEDS: FUROSEMIDE 20 MG TABLET PO (09:55)
[2023-10-06] MEDS: ROSUVASTATIN 5 MG TABLET PO (09:55)
[2023-10-06] MEDS: TIMOLOL MALEATE 0.5% OP SOLN 5 ML BOTTLE 1 DROP EACH EYE (09:55)
[2023-10-06] MEDS: EMPAGLIFLOZIN 10 MG TABLET PO (10:00)
[2023-10-06] MEDS: SENNA/DOCUSATE SODIUM TABLET 1 TAB PO (10:00)
[2023-10-06] MEDS: ASPIRIN 81 MG ENTERIC TABLET PO (10:31)
[2023-10-06 11:45] LABS: Glucose Point of Care 317 mg/dl (65-105)
[2023-10-06] MEDS: MAGNESIUM CITRATE 300 ML BTL PO (11:48)
[2023-10-06] MEDS: cefTRIAXone 2 GM/NS 100 ML 2 GM/100 ML BAG IVPB (11:51)
[2023-10-06] MEDS: INSULIN ASPART (*BKC) 100 UNITS/ML SUB-Q (12:03)
--- NOTE | 2023-10-06 12:11 | PC.NURSE ---
On 10/06/23, the SENIOR UI DESIGNER, Analy, provided care and completed [facility] documentation on this patient. I have reviewed the SENIOR UI DESIGNER's documentation and agree with the findings.
[2023-10-06 13:24] LABS: SARS-CoV-2 RNA PCR Negative (Negative)
== END 2023-10-06 13:10 | DRG 554 ==
LOC: ANHED 18:34 → ANH3MEDSUR 19:31
PROVIDERS: Admitting Provider Student in an Organized Health Care Education/Training Program; Emergency Provider Emergency Medicine; PCP Family Medicine; Visit Provider General Practice
DX: E87.1 Hypo-osmolality and hyponatremia (principal); M87.051 Idiopathic aseptic necrosis of right femur; M16.11 Unilateral primary osteoarthritis, right hip; Z22.322 Carrier or suspected carrier of Methicillin resistant Staphylococcus aureus; D72.829 Elevated white blood cell count, unspecified; E78.2 Mixed hyperlipidemia; E11.22 Type 2 diabetes mellitus with diabetic chronic kidney disease; E86.0 Dehydration; E66.9 Obesity, unspecified; H40.9 Unspecified glaucoma; I12.9 Hypertensive chronic kidney disease with stage 1 through stage 4 chronic kidney disease, or unspecified chronic kidney disease; I16.0 Hypertensive urgency; M47.816 Spondylosis without myelopathy or radiculopathy, lumbar region; N18.31 Chronic kidney disease, stage 3a; Z87.891 Personal history of nicotine dependence; Z91.148 Patient's other noncompliance with medication regimen for other reason; Z68.26 Body mass index [BMI] 26.0-26.9, adult; Z11.52 Encounter for screening for COVID-19; Z79.82 Long term (current) use of aspirin; Z79.84 Long term (current) use of oral hypoglycemic drugs
CPT/HCPCS: 36415; 71045; 72170; 80048; 80053; 81001; 82948; 83036; 83735; 84145; 85025; 87040; 87635; 93971; 96372; 97161; 97166; 97530; 97535; 99285; A9270; J0360; J0696; J1650; J1815; J1885; J2270; J3370; J3475; J7030

== ENCOUNTER 2024-01-16 14:28 | Outpatient (CLI) | payer MEDICARE, SELFPAY ==
[2024-01-16 14:50] LABS: Basophils Percent Auto 0.4 % (0.2-1.2); Eosinophils Absolute Auto 0.3 K/mm3 (0-0.3); Eosinophils Percent Auto 2.3 % (0-4.4); Hematocrit 42.4 % (37.0-47.0); Hemoglobin 12.8 g/dL (12.0-15.0); Immature Granulocyte Absolute 0.04 K/mm3 (0.00-0.031); Immature Granulocyte Percent A 0.4 % (0-0.5); Lymphocytes Absolute Auto 2.03 K/mm3 (0.9-3.2); Lymphocytes Percent Auto 18.2 % (18.3-44.2); Mean Corpuscular HGB Conc 30.2 g/dl (32-36); Mean Corpuscular Hemoglobin 25.8 pg (26-34); Mean Corpuscular Volume 85.5 fl (80-100); Monocytes Absolute Auto 0.7 K/mm3 (0.1-0.6); Monocytes Percent Auto 6.1 % (2.6-8.5); Neutrophils Absolute Auto 8.1 K/mm3 (1.3-6.7); Neutrophils Percent Auto 72.6 % (45.5-73.1); Platelet Count Result 367 k/mm3 (150-375); Red Blood Count 4.96 M/mm3 (4.2-5.4); Red Cell Distribution Width 15.7 % (11.5-14.5); White Blood Count 11.2 K/mm3 (4.5-10.0)
[2024-01-16 15:00] LABS: Alanine Aminotransferase 14 U/L (6-35); Albumin Level 4.5 g/dL (3.5-5.1); Alkaline Phosphatase 85 U/L (38-126); Anion Gap 7 mmol/L (8-16); Aspartate Amino Transferase 24 U/L (14-36); Bilirubin,Total 0.4 mg/dL (0.2-1.3); Blood Urea Nitrogen 22 mg/dL (7-17); Calcium 10.9 mg/dL (8.4-10.2); Carbon Dioxide 30 mmol/L (22-30); Chloride 101 mmol/L (98-107); Estimated Glomerular Filt Rate 60; Glucose 162 mg/dL (65-110); Potassium 3.6 mmol/L (3.4-5.0); Sodium 138 mmol/L (137-145)
[2024-01-16 15:25] LABS: Erythrocyte Sedimentation Rate 23 mm/hr (0-20)
[2024-01-16 15:37] LABS: Hemoglobin A1C 6.8 % (<5.7)
== END 2024-01-16 14:29 | disposition home or self-care (01) ==
LOC: ANHLAB 14:32
PROVIDERS: PCP Family Medicine; Visit Provider Family Medicine
DX: E11.9 Type 2 diabetes mellitus without complications (principal); E03.9 Hypothyroidism, unspecified; M16.11 Unilateral primary osteoarthritis, right hip; M19.90 Unspecified osteoarthritis, unspecified site; I10 Essential (primary) hypertension
CPT/HCPCS: 36415; 80053; 83036; 84443; 85025; 85652

== ENCOUNTER 2024-01-23 10:34 | Outpatient (CLI) | payer MEDICARE, SELFPAY ==
--- NOTE | ~2024-01-23 | XR_ITS ---
Right Knee Technique: AP, lateral, and sunrise views were obtained. Clinical History: Pain Findings: No fracture or dislocation is seen. There is moderate to advanced tricompartmental osteoart hritis, with extensive osteophyte formation.. Soft tissues are unremarkable. No joint effusion is see n. Impression: Moderate to severe tricompartmental osteoarthritis. Reviewed, dictated and finalized at location . ING MACHINE OPERATOR Impression: Moderate to severe tricompartmental osteoarthritis.
--- NOTE | ~2024-01-23 | XR_ITS ---
AP view of the pelvis and AP and lateral views of the right hip Clinical history: Pain Findings: No acute fracture or dislocation is seen. Right hip arthroplasty in place, without evidence of hardware complication. Left hip joint space is preserved.. Soft tissues are unremarkable. Impression: No acute abnormality. Right hip arthroplasty in place. Reviewed, dictated and finalized at location . ER ROBBER Impression: No acute abnormality. Right hip arthroplasty in place.
== END 2024-01-23 10:35 | disposition home or self-care (01) ==
PROVIDERS: PCP Family Medicine; Visit Provider Family Medicine
DX: M25.551 Pain in right hip (principal); G89.29 Other chronic pain; M17.11 Unilateral primary osteoarthritis, right knee
CPT/HCPCS: 73502; 73562

== ENCOUNTER 2024-04-15 09:45 | Outpatient (CLI) | payer MEDICARE, SELFPAY ==
--- NOTE | ~2024-04-15 | MR_ITS ---
MRI of the lumbar spine Clinical History: Radiculopathy Technique: Axial T2-weighted images, and sagittal T1-weighted, T2-weighted, and and T2 fat-sat images were acquired. COMPARISON: 08/01/2022 Findings: No acute fracture identified. Osseous alignment is unchanged from prior exam. There is 3 mm retrolisthesis of L2 over L3. There is 4 mm retrolisthesis of L3 over L4. There are probable type II Modic changes throughout the lumbar spine. No suspicious bone marrow signal abnormality seen. At L1-L2, there is severe degenerative disc narrowing. There is disc bulge and moderate to severe fac et arthropathy. No central canal stenosis. There is moderate to severe left neural foraminal narrowin g. Right neural foramen preserved. At L2-L3, there is severe degenerative disc narrowing. There is disc bulge and severe facet arthropat hy. No central canal stenosis. There is severe left neural foraminal narrowing, and minimal right navneet ral foraminal narrowing. At L3-L4, there is severe degenerative disc narrowing. Disc bulge and severe facet arthropathy result in severe spinal canal stenosis/thecal sac compression. There is severe bilateral neural foraminal c ompromise. At L4-L5, there is disc bulge with probable superimposed central disc protrusion, along with severe f acet arthropathy. There is moderate central canal stenosis/thecal sac compression. There is severe ri ght neural foraminal compromise, and moderate left neural foraminal compromise. At L5-S1, there is mild diffuse disc bulge and severe facet arthropathy. No central canal stenosis. T here is severe right neural foraminal narrowing, and moderate to severe left neural foraminal narrowi ng. Paravertebral soft tissues are unremarkable. Impression: Severe degenerative spondylosis throughout the lumbar spine, as detailed above. 3 mm retrolisthesis of L2 over L3. 4 mm retrolisthesis of L3 over L4. Reviewed, dictated and finalized at location M. Impression: Severe degenerative spondylosis throughout the lumbar spine, as detailed above. 3 mm retrolisthesis of L2 over L3. 4 mm retrolisthesis of L3 over L4.
== END 2024-04-15 09:46 ==
LOC: MICIMG 09:47
PROVIDERS: PCP Family Medicine; Visit Provider Nurse Practitioner Family
DX: M54.16 Radiculopathy, lumbar region (principal); M43.06 Spondylolysis, lumbar region
CPT/HCPCS: 72148

== ENCOUNTER 2024-07-27 09:42 | Outpatient (CLI) | payer MEDICARE, SELFPAY ==
--- NOTE | 2024-07-27 09:47 | ECHO_ITS ---
Patient Info Name: Diana Haynes Age: 84 years : 1940 Gender: Female Ht: 66 in Wt: 153 lbs BSA: 1.81 m2 HR: 92 bpm BP: 189 / 125 mmHg Technical Quality: Poor Exam Date: 07/27/2024 10:17 AM Exam Location: Echo Lab Patient Status: Outpatient Admit Date: 07/27/2024 Staff Ordering Physician: Daniel Anderson DO Back Panel Padder: Danika Green RDCS Attending Provider: Daniel Anderson DO Referring Physician: Justin LEBLANC; Exam Type: CA echo doppler color flow Study Info Indications R01.1 - Cardiac murmur, unspecified Complete two-dimensional, color flow and Doppler transthoracic echocardiogram is performed. Summary 1. Complete two-dimensional, color flow and Doppler transthoracic echocardiogram is performed. 2. Technically suboptimal study due to poor sonographic images. 3. Left ventricular chamber dimension is normal. 4. Left ventricular systolic function is normal, estimated at 60-65%. 5. The left ventricular diastolic function is indeterminate. 6. Tissue doppler is not performed. 7. The aortic valve is not well visualized. 8. There is severe aortic valve sclerosis. 9. There is no aortic valve stenosis based on normal valve area and velocity. However, visually there probably is some degree of aortic stenosis. Consider DAWIT if clinically indicated. 10. No pulmonary hypertension, estimated pulmonary arterial systolic pressure is 25 mmHg. Left Ventricle Technically suboptimal study due to poor sonographic images. Tissue doppler is not performed. Left ventricular chamber dimension is normal. Left ventricular systolic function is normal, estimated at 60-65%. The left ventricular diastolic function is indeterminate. Right Ventricle Right ventricular chamber dimension is normal. Right ventricular systolic function is normal. Left Atria Left atrial chamber dimension is normal. Right Atria Right atrial chamber dimension is normal. Aortic Valve There is no aortic valve stenosis based on normal valve area and velocity. However, visually there probably is some degree of aortic stenosis. Consider DAWIT if clinically indicated. The aortic valve is not well visualized. There is severe aortic valve sclerosis. There is no aortic valve regurgitation. Pulmonic Valve There is no pulmonic regurgitation. Mitral Valve There is no mitral valve stenosis. There is no mitral valve regurgitation. Tricuspid Valve There is no tricuspid valve regurgitation. No pulmonary hypertension, estimated pulmonary arterial systolic pressure is 25 mmHg. Pericardium/Pleural There is no pericardial effusion. Inferior Vena Cava Normal inferior vena cava with >50% collapse upon inspiration consistent with normal right atrial pressure, 5 mmHg. Aorta The aortic root size at the sinus of Valsalva is normal. Left Ventricular Outflow Tract Name Value Normal LVOT 2D LVOT Diameter 1.9 cm LVOT Doppler LVOT Peak Gradient 7 mmHg LVOT Mean Gradient 5 mmHg LVOT VTI 42 cm LVOT VTI/AV VTI Ratio 1.1 LVOT Stroke Volume 115 ml LVOT CO 5.8 l/min LVOT CI
--- NOTE | 2024-07-27 11:36 | PCCARD ---
PATIENTS BLOOD PRESSURE CONSISTENTLY HIGH 185/125, 193/121. PATIENT REFUSED TO GO THE ER. STATED SHE WOULD CONTACT HER PCP.
== END 2024-07-27 09:43 | disposition home or self-care (01) ==
LOC: ANHCARD 09:45
PROVIDERS: PCP Family Medicine; Visit Provider Internal Medicine Cardiovascular Disease
DX: R01.1 Cardiac murmur, unspecified (principal)
CPT/HCPCS: 93306

== ENCOUNTER 2025-04-19 09:29 | Inpatient (IN) | payer MEDICARE, SELFPAY ==
[2025-04-19] VITALS (11 sets, daily range): BP systolic 133–176; BP diastolic 65–117; PULSE 59–103; RESP 17–20; TEMP 36.7–36.9; O2SAT 96–100; BMI 28.2
--- NOTE | ~2025-04-19 | US_ITS ---
Renal-Bladder ultrasound Clinical History: Acute renal insufficiency Technique: Real-time sonographic imaging of the kidneys and urinary bladder was performed. Findings: The right kidney measures 12.1 cm in length and the left kidney measures 11.1 cm. There is no hydronephrosis or renal calculus identified. Renal cortical echogenicity is within normal limits. No solid renal mass lesion is identified. The urinary bladder is moderately distended at the time of this exam. No intraluminal echoes are iden tified. No abnormal wall thickening is seen. Impression: Unremarkable ultrasound of the kidneys and urinary bladder. Reviewed, dictated and finalized at location M. Impression: Unremarkable ultrasound of the kidneys and urinary bladder.
--- OUTSIDE RECORDS SUMMARY | 2025-04-19 11:04 | XMS_ITS | Clinical Summary ---
Author Organization [facility] Address [address] [place] [id number] Care Team Providers Care Hcc Coders Name Role Phone Elizabeth Zamora MD Primary Care Provider Allergies Active Allergy Reactions Criticality Noted Date Comments Atorvastatin Other (See comments) Low 05/05/2018 Liver enzymes Social History Tobacco Use Types Packs/Day Years Used Date Smoking Tobacco: Never Assessed Personal Safety Answer Date Recorded Getting School Help Needed Not on file 02/01 Comments Unknown Sex and Gender Information Value Date Recorded Sex Assigned at Not on file Legal Sex Female 2:35 PM CDT Gender Identity Not on file Sexual Orientation Not on file Last Filed Vital Signs Vital Sign Reading Time Taken Comments Blood Pressure - - Pulse - - Temperature - - Respiratory Rate - - Oxygen Saturation - - Inhaled Oxygen Concentration - - Weight 90.3 kg (199 lb) 05/05/2018 10:26 AM CDT Height 167.6 cm (5' 6) 05/05/2018 10:26 AM CDT Body Mass Index 32.12 05/05/2018 10:26 AM CDT Plan of Treatment Not on file Insurance [facility] Care Teams Hcc Coders Relationship Specialty Start Date End Date Elizabeth Zamora MD [address] [facility] [address] [place] [address] PCP - General Family Medicine 04/09/18
--- OUTSIDE RECORDS SUMMARY | 2025-04-19 11:04 | XMS_ITS | Referral Summary ---
Author Organization [facility] Address [address] [place] [id number] Care Team Providers Care Filter Cloth Maker Name Role Phone Elizabeth Zamora MD Primary [...] of Treatment Not on file Insurance MEDICARE [facility] Care Teams Filter Cloth Maker Relationship Specialty Start Date End Date Elizabeth Zamora MD [address] [facility] [address] [place] [address] PCP - General Family Medicine 04/09/18
[2025-04-19 11:13] LABS: Add Urine Microscopic? YES; Appearance Urine Clear (Clear); Bacteria Urine 4+ /hpf; Bilirubin Urine Negative (Negative); Blood Urine Negative (Negative); Color Urine Yellow (Yellow); Glucose Urine UA Negative (Negative); Ketones Urine Negative (Negative); Leukocyte Esterase Ur 2+ LEU/UL (Negative); Nitrate Urine Negative (Negative); Non Pathogenic Casts 0-2; Protein Urine 1+ mg/dL (Negative); RBC Urine 0-2 /hpf (0-2); Squamous Epithelial Cell Urine None Seen /hpf (Few); Urobilinogen Urine 0.2 mg/dL (<2.0); WBC Urine 21-50 /hpf (0-3)
[2025-04-19 12:33] LABS: Basophils Percent Auto 0.2 % (0.2-1.2); Eosinophils Absolute Auto 0.1 K/mm3 (0-0.3); Eosinophils Percent Auto 1.5 % (0-4.4); Hematocrit 33.9 % (37.0-47.0); Immature Granulocyte Absolute 0.03 K/mm3 (0.00-0.031); Immature Granulocyte Percent A 0.4 % (0-0.5); Lymphocytes Percent Auto 15.5 % (18.3-44.2); Mean Corpuscular HGB Conc 32.4 g/dl (32-36); Mean Corpuscular Hemoglobin 28.4 pg (26-34); Mean Corpuscular Volume 87.6 fl (80-100); Mean Platelet Volume 10.2 fl (7.4-10.4); Monocytes Absolute Auto 0.6 K/mm3 (0.1-0.6); Monocytes Percent Auto 7.5 % (2.6-8.5); Neutrophils Absolute Auto 6.3 K/mm3 (1.3-6.7); Neutrophils Percent Auto 74.9 % (45.5-73.1); Platelet Count Result 206 k/mm3 (150-375); Red Blood Count 3.87 M/mm3 (4.2-5.4); Red Cell Distribution Width 12.9 % (11.5-14.5); White Blood Count 8.4 K/mm3 (4.5-10.0)
[2025-04-19 12:44] LABS: Alanine Aminotransferase 10 U/L (6-35); Albumin Level 4.1 g/dL (3.5-5.1); Alkaline Phosphatase 71 U/L (38-126); Anion Gap 14 mmol/L (4-12); Aspartate Amino Transferase 18 U/L (14-36); Bilirubin,Total 0.6 mg/dL (0.2-1.3); Blood Urea Nitrogen 49 mg/dL (7-17); Calcium 9.4 mg/dL (8.4-10.2); Carbon Dioxide 23 mmol/L (22-30); Chloride 104 mmol/L (98-107); Estimated CRCL calculation 13 ml/min; Estimated Glomerular Filt Rate 15; Glucose 118 mg/dL (65-110); Potassium 4.1 mmol/L (3.4-5.0); Sodium 141 mmol/L (137-145)
[2025-04-19] MEDS: SODIUM CHLORIDE 0.9% IV 1,000 ML 150 ML IV CONT (14:01)
--- NOTE | 2025-04-19 14:15 | ED_ITS ---
HPI - General Adult General Chief complaint: Unspecified Stated complaint: general tremors Time Seen by Provider: 04/19/25 10:00 Source: patient Mode of arrival: EMS Limitations: no limitations History of Present Illness HPI narrative: 84-year-old with a history of hypertension, diabetes, hyperlipidemia here with the complaints of generalized tremors for last 4 days. Patient states that she was recently started on nifedipine for her blood pressure and now pain tired primary doctor. She is not quite sure it is he medication which could be causing her to have tremors. No fevers or chills. Related Data Home Medications ?Medication ?Instructions ?Recorded ?Confirmed ?Last Taken ?Type acetaminophen 500 mg tablet 1,000 mg PO QID PRN Pain 09/25/23 03/15/25 Unknown History Allergies Allergy/AdvReac Type Severity Reaction Status Date / Time NICKY Inhibitors Allergy Unknown abdominal Verified 04/19/25 09:34 pain atorvastatin Allergy Unknown abdominal Verified 04/19/25 09:34 pain amlodipine AdvReac Mild Dizziness Verified 04/19/25 09:34 lisinopril AdvReac Cough Verified 04/19/25 09:34 Review of Systems 2 Review of Systems: All systems reviewed & are unremarkable except as noted in HPI and below Constitutional: Constitutional: Reports no additional constitutional complaints Eyes: Eyes: Reports no additional eye complaints ENT: Reports system reviewed and no additional complaints, except as documented Cardiovascular: Cardiovascular: Reports no additional cardiovascular complaints Respiratory: Respiratory: Reports no additional respiratory complaints Musculoskeletal: Musculoskeletal: Reports as per HPI COUNTS INCLUDE 234 BEDS AT THE [facility] Past Medical History Medical History Preop cardiovascular exam On deep vein thrombosis (DVT) prophylaxis Elevated serum creatinine Lumbar spondylosis Effusion, right knee Degenerative joint disease of knee Benign essential HTN Type 2 diabetes mellitus with diabetic chronic kidney disease Hypercalcemia Back pain Knee pain, right Glaucoma Surgical History Surgical History History of hip replacement Family History Family History Father Hypertension Cerebrovascular accident Sibling Hypertension Cerebrovascular accident Mother Family history of macular degeneration Social History Social History Social History: Smoking packs per day: 1 Smoking cigarettes per day: 20.0 Years smoked: 10 Smoking pack-years: 10.00 Smoking status: Former smoker Tobacco type: cigarettes Second hand tobacco smoke exposure: No Smoking end date: 12/19/75 Additional smoking assessment comments: PT DENIES ALL FORMS OF TOBACCO USE Alcohol intake: never Alcohol use details: STOPPED YRS AGO D/T MEDICATIONS Substance use: never Substance use type: does not use Do You Feel Safe in your Home?: Yes Lack of Transportation: No Lack of Food: Never True Current Housing: I Have Housing Concerned About Future Housing: No Difficulty Paying Gas/Electric Bills: No Difficulty Paying for Meds: No Currently Unemployed: No Education: High School Diploma/GED Difficulty w/ Childcare or Family Care: No Living arrangements: alone Additional living arrangements comments: TEMPORARY STAYING AT 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 HEAD: Normocephalic, atraumatic. EYES: PERRLA and EOMI. ENT: Nares clear, no rhinorrhea or epistaxis. Mucous membranes moist. NECK: Supple. CHEST: Clear to auscultation. No respiratory distress. HEART: Regular rate and rhythm. No murmur heard. Normal peripheral pulses. ABDOMEN: Soft, nontender, nondistended, normal active bowel sounds. EXTREMITIES: Normal range of motion. No edema. SKIN: Warm, dry, no rash. NEURO: No focal deficits. Alert and oriented x3. PSYCH: Normal mood and affect. Course Course Emergency Course: Patient occasionally has generalized tremor which last for few seconds , I did inform her about her lab work agreeable with admission. Start IV fluids and on some antibiotic for UTI. [id number] Liang will admit , agree with the plan Vital Signs Vital signs: Vital Signs Temperature 36.8 C 04/19/25 09:26 Pulse Rate 70 04/19/25 09:26 Respiratory Rate 17 04/19/25 09:26 Blood Pressure 138/117 H 04/19/25 09:26 Pulse Oximetry 98 04/19/25 09:26 Temperature 36.8 C 04/19/25 09:26 Pulse Rate 78 04/19/25 11:18 Respiratory Rate 17 04/19/25 11:18 Blood Pressure 176/107 H 04/19/25 11:18 Pulse Oximetry 99 04/19/25 11:18 Medical Decision Making Differential Diagnosis Differential Diagnosis: Anxiety disorder,, sepsis,, EPS Medical Records Medical records reviewed: Yes I reviewed the external patient's medical records. Vital Signs Vital Signs: Vital Signs Temperature 36.8 C 04/19/25 09:26 Pulse Rate 70 04/19/25 09:26 Respiratory Rate 17 04/19/25 09:26 Blood Pressure 138/117 H 04/19/25 09:26 Pulse Oximetry 98 04/19/25 09:26 Temperature 36.8 C 04/19/25 09:26 Pulse Rate 78 04/19/25 11:18 Respiratory Rate 17 04/19/25 11:18 Blood Pressure 176/107 H 04/19/25 11:18 Pulse Oximetry 99 04/19/25 11:18 Lab Data Lab results reviewed: Yes I reviewed the patient's lab results. 04/19/25 12:27 04/19/25 12:26 Labs: Lab Results 04/19/25 04/19/25 04/19/25 Range/Units 11:00 12:26 12:27 WBC 8.4 (4.5-10.0) K/mm3 RBC 3.87 L (4.2-5.4) M/mm3 Hgb 11.0 L (12.0-15.0) g/dL Hct 33.9 L (37.0-47.0) % MCV 87.6 (80-100) fl MCH 28.4 (26-34) pg MCHC 32.4 (32-36) g/dl RDW 12.9 (11.5-14.5) % Plt Count 206 (150-375) k/mm3 MPV 10.2 (7.4-10.4) fl Immature Gran % (Auto) 0.4 (0-0.5) % Neut % (Auto) 74.9 H (45.5-73.1) % Lymph % (Auto) 15.5 L (18.3-44.2) % Garfield % (Auto) 7.5 (2.6-8.5) % Eos % (Auto) 1.5 (0-4.4) % Baso % (Auto) 0.2 (0.2-1.2) % Lymph # (Auto) 1.30 (0.9-3.2) K/mm3 Garfield # (Auto) 0.6 (0.1-0.6) K/mm3 Eos # (Auto) 0.1 (0-0.3) K/mm3 Baso # (Auto) 0.0 (0.0-0.1) K/mm3 Abs Immat Gran (auto) 0.03 (0.00-0.031) K/mm3 Absolute Neuts (auto) 6.3 (1.3-6.7) K/mm3 Absolute Nucleated RBC 0.000 (0.0-0.012) K/mm3 Nucleated RBC % 0.0 (0.0-0.2) % Sodium 141 (137-145) mmol/L Potassium 4.1 (3.4-5.0) mmol/L Chloride 104 (98-107) mmol/L Carbon Dioxide 23 (22-30) mmol/L Anion Gap 14 H (4-12) mmol/L BUN 49 H D (7-17) mg/dL Creatinine 3.06 H (0.7-1.0) mg/dL Estim Creat Clear Calc 13 ml/min Estimated GFR 15 L (59 - ) Glucose 118 H (65-110) mg/dL Lactic Acid 1.0 (0.7-2.0) mmol/L Calcium 9.4 (8.4-10.2) mg/dL Total Bilirubin 0.6 (0.2-1.3) mg/dL AST 18 (14-36) U/L ALT 10 (6-35) U/L Alkaline Phosphatase 71 (38-126) U/L Total Protein 7.0 (6.3-8.2) g/dL Albumin 4.1 (3.5-5.1) g/dL Urine Color Yellow (Yellow) Urine Appearance Clear (Clear) Urine pH 7.0 (5.0-9.0) Ur Specific S[place] 1.010 (1.001-1.035) Urine Protein 1+ H (Negative) mg/dL Urine Glucose (UA) Negative (Negative) mg/dL Urine Ketones Negative (Negative) mg/dL Ur Blood (Man) Negative (Negative) Urine Nitrate Negative (Negative) Urine Bilirubin Negative (Negative) Urine Urobilinogen 0.2 (<2.0) mg/dL Leukocyte Esterase Rfl 2+ H (Negative) RANDAL/UL Urine RBC 0-2 (0-2) /hpf Urine WBC 21-50 H (0-3) /hpf Ur Squamous Epith Cells None seen (Few) /hpf Urine Bacteria 4+ H /hpf Urine Casts 0-2 Critical Care Time Critical Care Time Total Critical Care Time: 45 Discharge Plan Discharge Clinical Impression: LARISA (acute kidney injury), Acute UTI, Neuropathic pain Patient Disposition: Still a Patient Condition: Stable Patient Language: Palestinian Prescriptions: No Action furosemide 40 mg tablet 40 mg PO QAM Qty: 30 5RF hydralazine 25 mg tablet See Rx Instructions .ROUTE .COMPLEX Qty: 360 1RF Dose Instruction: TAKE 1 TABLET BY MOUTH FOUR TIMES DAILY Rx Instructions: TAKE 1 TABLET BY MOUTH FOUR TIMES DAILY quetiapine 25 mg tablet 50 mg PO QHS Qty: 60 3RF nifedipine 30 mg tablet extended release 30 mg PO DAILY Qty: 30 0RF acetaminophen 500 mg Tablet 1,000 mg PO QID PRN (Reason: Pain) latanoprost 0.005 % drops See Rx Instructions .ROUTE .COMPLEX Qty: 7.5 0RF Dose Instruction: INSTILL 1 DROP IN BOTH EYES EVERY DAY AT BEDTIME Rx Instructions: INSTILL 1 DROP IN BOTH EYES EVERY DAY AT BEDTIME timolol maleate 0.5 % gel forming solution See Rx Instructions .ROUTE .COMPLEX Qty: 20 0RF Dose Instruction: INSTILL 1 DROP IN BOTH EYES EVERY 12 HOURS Rx Instructions: INSTILL 1 DROP IN BOTH EYES EVERY 12 HOURS rosuvastatin 5 mg tablet See Rx Instructions .ROUTE .COMPLEX Qty: 90 3RF Dose Instruction: TAKE 1 TABLET BY MOUTH DAILY Rx Instructions: TAKE 1 TABLET BY MOUTH DAILY losartan 100 mg tablet 100 mg PO DAILY Qty: 90 0RF clonidine HCl 0.1 mg tablet See Rx Instructions .ROUTE .COMPLEX Qty: 540 0RF Dose Instruction: TAKE 2 TABLETS BY MOUTH THREE TIMES DAILY Rx Instructions: TAKE 2 TABLETS BY MOUTH THREE TIMES DAILY nystatin 100,000 unit/gram powder 1 applic topical BID Qty: 15 1RF metformin 1,000 mg tablet 1,000 mg PO BID Qty: 180 2RF gabapentin 100 mg capsule 100 mg PO TID Qty: 90 1RF Follow-up/Referrals: Sami Cash MD [Primary Care Provider] - Time of Disposition: 14:54
[2025-04-19] MEDS: cefTRIAXone 2 GM/NS 100 ML 2 GM/100 ML BAG IVPB (15:01)
[2025-04-19] MEDS: cloNIDine HCL 0.2 MG TABLET PO (15:04)
--- NOTE | 2025-04-19 17:50 | ADMGEN ---
This patient, Diana Haynes, was admitted to 2 Medical Room 256-01. Patient/family oriented to hospital policies and general routines including ID bracelet, bed and alarms, visiting hours, pain management, procedures, bathroom and other care routines, personal items, smoking policy, room service/diet, and visiting hours. Information on how to activate the Rapid Response Team has been discussed. Patient/Family are encouraged to report perceived risks to care and to ask questions if they do not understand what they are told or what they should do.
[2025-04-19 17:59] LABS: Glucose Point of Care 115 mg/dl (65-105)
[2025-04-19 20:48] LABS: Glucose Point of Care 186 mg/dl (65-105)
[2025-04-19] MEDS: SODIUM CHLORIDE 0.9% IV 1,000 ML 125 ML IV CONT (21:41)
--- NOTE | 2025-04-19 23:28 | P.HP_ITS ---
H&P: HPI History of Present Illness Date/Time: 04/19/25 20:28 Chief Complaint: Continuous tremors Narrative: 84-year-old female with a past medical history of chronic kidney disease, aortic stenosis, essential hypertension, chronic lower extremity edema on Lasix, diabetic peripheral neuropathy and glaucoma who presented to the ER with tremors and grinding of her teeth a she reports that been continuous for the last 4 days. She was recently started on gabapentin for her peripheral neuropathy in her right lower extremity. She was started on 100 mg q.8 hours. She also was recently started on nifedipine for uncontrolled hypertension. She reports that she was initially having shaking of all 4 extremities that was in her min but over the last 24 hours it had become constant. She was also having some chattering of her teeth and grinding of her teeth. She reported that it did become so bad that she was weak in could not stand with her walker. She denies any recent fevers or chills. She denies any dysuria, hematuria or change in urinary frequency. She denies any shortness of breath beyond her usual. She has not had any changes in her lower extremity swelling. In the ER the patient did have an episode of tremors that lasted for few seconds but resolved. Patient did not have any episodes of tremors while I was evaluating the patient. Labs in the ER did demonstrate creatinine of 3. Patient has known chronic kidney disease at least stage III. There is no recent values available for comparison but patient is aware that her kidney function is not good. She denies any urinary incontinence or changes in bowel habits. UA in the ER was suggestive of possible UTI but patient did not have white count and was afebrile. She did receive 1 a fluid at 150 mL an hour. She also received 1 dose of Rocephin 2 g x1. Source of information comes mostly from the patient who is a good historian Review of Systems 2 Review of Systems: 12 systems were reviewed with pertinent positives and negatives per HPI. Except as documented in the HPI, all other systems were reviewed and are negative. [facility] Past Medical History Medical History (Updated 04/20/25 @ 00:21 by Lucero Liang DO) Hyperlipidemia Aortic stenosis Diabetic peripheral neuropathy CKD (chronic kidney disease) stage 3, GFR 30-59 ml/min Lumbar spondylosis Degenerative joint disease of knee Benign essential HTN Type 2 diabetes mellitus with diabetic chronic kidney disease Hypercalcemia Glaucoma Surgical History Surgical History (Updated 04/20/25 @ 00:18 by Lucero Liang DO) Status post cataract extraction of both eyes with insertion of intraocular lens History of right hip replacement Family History Family History Father Hypertension Cerebrovascular accident Sibling Hypertension Cerebrovascular accident Mother Family history of macular degeneration Social History Social History (Updated 04/20/25 @ 00:08 by Lucero Liang DO) Social History: She is and lives in her own home. She does not have any children. 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 She has a home caregiver that comes Saturday 09:00 to 12. She ambulates with a walker. She used to drink on occasion but has not done so in at least 40 years. She smoked briefly but quit in 1975. She denies illicit substance use. Code status: DNR/DNI per patient request Healthcare power of employment law attorney: Abhishek (nephew) Smoking packs per day: 1 Smoking cigarettes per day: 20.0 Years smoked: 10 Smoking pack-years: 10.00 Smoking status: Former smoker Second hand tobacco smoke exposure: No Smoking end date: 05/21/76 Additional smoking assessment comments: former smoker Alcohol intake: never Alcohol use details: STOPPED YRS AGO D/T MEDICATIONS Substance use: never Substance use type: does not use Do You Feel Safe in your Home?: Yes Lack of Transportation: No Lack of Food: Never True Current Housing: I Have Housing Concerned About Future Housing: No Difficulty Paying Gas/Electric Bills: No Difficulty Paying for Meds: No Currently Unemployed: No Education: High School Diploma/GED Difficulty w/ Childcare or Family Care: No Living arrangements: alone Additional living arrangements comments: TEMPORARY STAYING AT [facility] Occupation/Education: retired 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 Gender identity (if verbalized by the patient): Female Sexual Orientation (if Verbalized by the Patient): Straight or Heterosexual Spiritual care concerns: No Meds Home Medications and Allergies Home Medications ?Medication ?Instructions ?Recorded ?Confirmed ?Type acetaminophen 500 mg tablet 1,000 mg PO QID PRN Pain 09/25/23 04/19/25 History latanoprost 0.005 % eye drops See Rx Instructions .Route 12/21/23 04/19/25 Rx .COMPLEX #7.5 mL timolol maleate 0.5 % eye gel See Rx Instructions .Route 12/21/23 04/19/25 Rx forming solution .COMPLEX #20 mL rosuvastatin 5 mg tablet See Rx Instructions .Route 10/20/24 04/19/25 Rx .COMPLEX #90 tabs furosemide 40 mg tablet 40 mg PO QAM #30 tabs 01/15/25 04/19/25 Rx losartan 100 mg tablet 100 mg PO DAILY #90 tabs 02/01/25 04/19/25 Rx clonidine HCl 0.1 mg tablet See Rx Instructions .Route 02/22/25 04/19/25 Rx .COMPLEX #540 tabs hydralazine 25 mg tablet See Rx Instructions .Route 03/15/25 04/19/25 Rx .COMPLEX #360 tabs quetiapine 25 mg tablet 50 mg (2 x 25 mg) PO QHS #60 tabs 03/15/25 04/19/25 Rx nifedipine 30 mg tablet,extended 30 mg PO DAILY #30 tabs 03/30/25 04/19/25 Rx release gabapentin 100 mg capsule 100 mg PO TID #90 caps 04/14/25 04/19/25 Rx metformin 1,000 mg tablet 1,000 mg PO BID #180 tabs 04/14/25 04/19/25 Rx nystatin 100,000 unit/gram topical 1 applic topical BID #15 grams 04/14/25 04/19/25 Rx powder Allergies Allergy/AdvReac Type Severity Reaction Status Date / Time NICKY Inhibitors Allergy Unknown abdominal Verified 04/19/25 18:13 pain atorvastatin Allergy Unknown abdominal Verified 04/19/25 18:13 pain amlodipine AdvReac Mild Dizziness Verified 04/19/25 18:13 lisinopril AdvReac Cough Verified 04/19/25 18:13 Vital Signs Vital Signs - 24 hr 04/19/25 09:26 04/19/25 09:33 04/19/25 11:18 Temperature 98.3 F Pulse Rate 70 78 78 Respiratory Rate 17 17 Blood Pressure 138/117 H 176/107 H Pulse Oximetry 98 99 Oxygen Delivery Fraction of Inspired Oxygen 04/19/25 15:05 04/19/25 15:59 04/19/25 16:00 Temperature 98.5 F Pulse Rate 103 H 86 82 Respiratory Rate 20 19 18 Blood Pressure 163/110 H 137/91 H 142/70 H Pulse Oximetry 96 100 100 Oxygen Delivery Fraction of Inspired Oxygen 04/19/25 17:46 04/19/25 18:56 04/19/25 20:00 Temperature 98.1 F Pulse Rate 76 59 L Respiratory Rate 19 18 20 Blood Pressure 166/82 H 133/65 Pulse Oximetry 100 100 96 Oxygen Delivery Room Air Fraction of Inspired Oxygen 04/19/25 20:00 04/19/25 20:11 04/19/25 21:41 Temperature 98.1 F Pulse Rate 59 L 59 L Respiratory Rate 20 20 Blood Pressure 133/65 Pulse Oximetry 100 96 100 Oxygen Delivery Room Air Room Air Fraction of Inspired Oxygen 21 21 Exam 2 Narrative: Weight 77 kg BMI 28.3 Const: Other: Elderly, no acute distress HENMT: Other: Mucous membranes are tacky, no oral pharyngeal erythema, head is normocephalic atraumatic Eyes: Other: No conjunctival pallor, no scleral icterus, pupils are equal and reactive with evidence of lens replacements bilaterally Neck: Other: Large neck circumference, no JVD, no thyromegaly Resp: Other: Clear to auscultation bilaterally, no increased work of breathing Cardio: Other: Regular rate, regular rhythm, 2+ bilateral radial pedal pulses, 2/6 systolic murmur, no JVD GI: Other: Distended, nontender, soft, normoactive bowel sounds Skin: Other: No jaundice, no pallor Neuro: Other: Alert oriented x4, speech is clear, no facial asymmetry, no localizing neurologic deficits noted during the course of conversation Extrem: Other: No clubbing, cyanosis or pitting edema, moves all extremities equally Psych: Other: Appropriate mood and affect, pleasant and cooperative, judgment and insight intact H&P: Results Labs Labs: Laboratory Tests 04/19/25 12:27 04/19/25 12:26 04/19/25 04/19/25 04/19/25 11:00 12:25 12:26 WBC RBC Hgb Hct MCV MCH MCHC RDW Plt Count MPV Immature Gran % (Auto) Neut % (Auto) Lymph % (Auto) [place] % (Auto) Eos % (Auto) Baso % (Auto) Lymph # (Auto) [place] # (Auto) Eos # (Auto) Baso # (Auto) Abs Immat Gran (auto) Absolute Neuts (auto) Absolute Nucleated RBC Nucleated RBC % Sodium 141 Potassium 4.1 Chloride 104 Carbon Dioxide 23 Anion Gap 14 H BUN 49 H D Creatinine 3.06 H Estim Creat Clear Calc 13 Estimated GFR 15 L Glucose 118 H POC Capillary Glucose Lactic Acid Calcium 9.4 Total Bilirubin 0.6 AST 18 ALT 10 Alkaline Phosphatase 71 Total Creatine Kinase 45 Total Protein 7.0 Albumin 4.1 Urine Color Yellow Urine Appearance Clear Urine pH 7.0 Ur Specific [place] 1.010 Urine Protein 1+ H Urine Glucose (UA) Negative Urine Ketones Negative Ur Blood (Man) Negative Urine Nitrate Negative Urine Bilirubin Negative Urine Urobilinogen 0.2 Leukocyte Esterase Rfl 2+ H Urine RBC 0-2 Urine WBC 21-50 H Ur Squamous Epith Cells None seen Urine Bacteria 4+ H Urine Casts 0-2 04/19/25 04/19/25 04/19/25 12:27 17:57 20:26 WBC 8.4 RBC 3.87 L Hgb 11.0 L Hct 33.9 L MCV 87.6 MCH 28.4 MCHC 32.4 RDW 12.9 Plt Count 206 MPV 10.2 Immature Gran % (Auto) 0.4 Neut % (Auto) 74.9 H Lymph % (Auto) 15.5 L [place] % (Auto) 7.5 Eos % (Auto) 1.5 Baso % (Auto) 0.2 Lymph # (Auto) 1.30 [place] # (Auto) 0.6 Eos # (Auto) 0.1 Baso # (Auto) 0.0 Abs Immat Gran (auto) 0.03 Absolute Neuts (auto) 6.3 Absolute Nucleated RBC 0.000 Nucleated RBC % 0.0 Sodium Potassium Chloride Carbon Dioxide Anion Gap BUN Creatinine Estim Creat Clear Calc Estimated GFR Glucose POC Capillary Glucose 115 H 186 H Lactic Acid 1.0 Calcium Total Bilirubin AST ALT Alkaline Phosphatase Total Creatine Kinase Total Protein Albumin Urine Color Urine Appearance Urine pH Ur Specific [place] Urine Protein Urine Glucose (UA) Urine Ketones Ur Blood (Man) Urine Nitrate Urine Bilirubin Urine Urobilinogen Leukocyte Esterase Rfl Urine RBC Urine WBC Ur Squamous Epith Cells Urine Bacteria Urine Casts Assessment and Plan Assessment and plan (1) Tremor: Code(s): R25.1 - Tremor, unspecified Status: Acute (2) Gabapentin adverse reaction: Qualifiers: Encounter type: initial encounter Qualified Code(s): T42.6X5A - Adverse effect of other antiepileptic and sedative-hypnotic drugs, initial encounter Code(s): T42.6X5A - Adverse effect of other antiepileptic and sedative-hypnotic drugs, initial encounter Status: Acute (3) Acute kidney injury superimposed on CKD: Code(s): N17.9 - Acute kidney failure, unspecified; N18.9 - Chronic kidney disease, unspecified Status: Acute (4) Abnormal urinalysis: Code(s): R82.90 - Unspecified abnormal findings in urine Status: Acute (5) Benign essential HTN: Code(s): I10 - Essential (primary) hypertension Status: Acute Plan Patient has tremors and shaking suspected to be due to adverse reaction to gabapentin. Will hold gabapentin and monitor. Will check CK level to rule out some component of rhabdomyolysis given suspected acute on chronic kidney injury. Patient's baseline creatinine is not known is we do not have any recent values but patient at least has history of chronic kidney disease stage 3. Currently her labs are consistent with stage IV disease. Will hold the patient's Lasix and metformin. Will give an additional 1 L fluid at 125 mL an hour then discontinue. Will repeat electrolyte panel in a.m.. Will monitor strict I&O's. Will continue home losartan with caution. Patient did have uncontrolled hypertension in the ER but this is likely due to having missed 2 doses of her clonidine for the day. Patient received 1 dose of clonidine in the ER with normalization of her blood pressure. Will resume the remainder the patient's home antihypertensives. Patient does have an abnormal urinalysis but denies any urinary symptoms whatsoever and does not have any leukocytosis or fever. Subsequently I will hold off on any further antibiotics as I suspect this is asymptomatic bacteriuria. Urine culture was obtained and is pending. Patient does have which he describes as pre diabetes her metformin hold. Will place patient on low-dose sliding scale insulin with Accu-Cheks a.c. HS and hypoglycemia protocol. Quality VTE Prophylaxis VTE prophylaxis: mechanical ordered (SCDs) Hospitalist MIPS Advance Care Plan I have confirmed that the patient's Advanced Care Plan is present, code status is documented, or surrogate decision maker is listed in patient medical record.: Yes Medication Reconciliation I have utilized all available resources to obtain, update and review the patients current medications (includes all prescriptions, OTC, herbals, cannabis, and nutritional supplements).: Yes
[2025-04-19 23:47] LABS: Creatine Kinase 45 U/L (30-135)
[2025-04-20] MEDS: LATANOPROST 0.005% OP SOLN 2.5 ML BTL 1 DROP EACH EYE ×2 (01:07→21:03)
[2025-04-20] MEDS: QUEtiapine FUMARATE 25 MG TABLET 50 MG PO ×2 (01:07→21:02)
[2025-04-20] MEDS: TIMOLOL MALEATE XE 0.5% OPHTH GEL SOLN 5 ML BTL 1 DROP EACH EYE ×3 (01:07→21:03)
[2025-04-20 04:25] VITALS: BP 178/80; PULSE 77; RESP 20; TEMP 36.6; O2SAT 96
[2025-04-20 05:23] LABS: Basophils Percent Auto 0.1 % (0.2-1.2); Eosinophils Absolute Auto 0.1 K/mm3 (0-0.3); Eosinophils Percent Auto 1.3 % (0-4.4); Hematocrit 29.8 % (37.0-47.0); Hemoglobin 9.7 g/dL (12.0-15.0); Immature Granulocyte Absolute 0.03 K/mm3 (0.00-0.031); Immature Granulocyte Percent A 0.4 % (0-0.5); Lymphocytes Percent Auto 18.1 % (18.3-44.2); Mean Corpuscular HGB Conc 32.6 g/dl (32-36); Mean Corpuscular Volume 89.2 fl (80-100); Mean Platelet Volume 10.6 fl (7.4-10.4); Monocytes Absolute Auto 0.6 K/mm3 (0.1-0.6); Monocytes Percent Auto 8.2 % (2.6-8.5); Neutrophils Absolute Auto 5.2 K/mm3 (1.3-6.7); Neutrophils Percent Auto 71.9 % (45.5-73.1); Platelet Count Result 186 k/mm3 (150-375); Red Blood Count 3.34 M/mm3 (4.2-5.4); Red Cell Distribution Width 12.9 % (11.5-14.5); White Blood Count 7.2 K/mm3 (4.5-10.0)
[2025-04-20 05:34] LABS: Anion Gap 12 mmol/L (4-12); Blood Urea Nitrogen 47 mg/dL (7-17); Calcium 8.7 mg/dL (8.4-10.2); Carbon Dioxide 21 mmol/L (22-30); Chloride 107 mmol/L (98-107); Estimated CRCL calculation 14 ml/min; Estimated Glomerular Filt Rate 15; Glucose 112 mg/dL (65-110); Potassium 3.7 mmol/L (3.4-5.0); Sodium 140 mmol/L (137-145)
[2025-04-20] MEDS: cloNIDine HCL 0.2 MG TABLET PO ×3 (05:58→21:01)
[2025-04-20 07:58] LABS: Glucose Point of Care 121 mg/dl (65-105)
[2025-04-20 08:49] VITALS: BP 166/80; PULSE 75; RESP 16; O2SAT 98
[2025-04-20] MEDS: LOSARTAN POTASSIUM 100 MG TABLET PO (08:54)
[2025-04-20] MEDS: ROSUVASTATIN 5 MG TABLET BY MOUTH (08:54)
[2025-04-20] MEDS: hydrALAZINE HCL 25 MG TABLET BY MOUTH ×4 (08:54→21:02)
[2025-04-20] MEDS: NIFEdipine 30 MG TAB.ER.24 PO (08:54)
[2025-04-20 12:43] LABS: Glucose Point of Care 204 mg/dl (65-105)
[2025-04-20] MEDS: INSULIN ASPART (*BKC) 100 UNITS/ML SUB-Q (13:02)
--- NOTE | 2025-04-20 13:04 | PM.IMPN ---
Progress Note: A&P Assessment and Plan (1) Tremor: Code(s): R25.1 - Tremor, unspecified Status: Acute Assessment and Plan: Tremors better. [place] related to recently started gabapentin. Gabapentin stopped and she is feeling better. Continue to monitor. PT/OT (2) Gabapentin adverse reaction: Qualifiers: Encounter type: initial encounter Qualified Code(s): T42.6X5A - Adverse effect of other antiepileptic and sedative-hypnotic drugs, initial encounter Code(s): T42.6X5A - Adverse effect of other antiepileptic and sedative-hypnotic drugs, initial encounter Status: Acute Assessment and Plan: As above. (3) Acute kidney injury superimposed on CKD: Code(s): N17.9 - Acute kidney failure, unspecified; N18.9 - Chronic kidney disease, unspecified Status: Acute Assessment and Plan: Patient with LARISA with Cr 3.06 on admission. Baseline was 1.17 in September 2024 and 1.88 on 03/03/25. Was on Lasix which was held. Check urine studies and other labs. Check renal US. Nephrology consulted (4) Abnormal urinalysis: Code(s): R82.90 - Unspecified abnormal findings in urine Status: Acute Assessment and Plan: UA is concerning for UTI. UCx collected. Abx held. UCx pending. Follow up on UCx results. (5) Benign essential HTN: Code(s): I10 - Essential (primary) hypertension Status: Acute Assessment and Plan: Patient's blood pressure was reviewed on 04/20 Blood pressure remains elevated at times possibly related to her pain Will continue current medications. Continue to follow. Plan DVT Prophylaxis - SCDs Code status - DNR Subjective Date/time seen: 04/20/25 13:04 Interval history: 84yo female with CKD, aortic stenosis, HTN, chronic lower extremity edema on Lasix, diabetic peripheral neuropathy, spinal stenosis and glaucoma who presented to the ER with tremors and grinding of her teeth x4 days. She was recently started on gabapentin for her peripheral neuropathy. Assuming care. Chart reviewed. She was up to the chair for about 30 minutes today but had to go back to bed due to back and knee pain. Has chronic back pain from spinal stenosis and osteorthritic knee pain. No Cp or SOB. Normal UOP. No dizziness. Tremors are better. 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 Otherwise, she is independent in ADLs. Exam Narrative: AF 98.2 185/85 85 16 100% ra Gen - NARD Chest - CTA bilaterally, nml RR CV - RRR S1/S2 with 2/6 systolic murmur t/o precordium Abd - Soft, NT/ND, Positive BS Ext - No pedal edema. Neuro - Alert and appropriate. Bilateral LE neuro exam limited due to pain. Able to dorsi and plantar flex at ankle Psych - Nml mood and affect Skin - Warm and dry Objective Data Vital Signs Vital Signs: Vital Signs - 24 hr 04/19/25 15:05 04/19/25 15:59 04/19/25 16:00 Temperature 98.5 F Pulse Rate 103 H 86 82 Respiratory Rate 20 19 18 Blood Pressure 163/110 H 137/91 H 142/70 H Pulse Oximetry 96 100 100 Oxygen Delivery Fraction of Inspired Oxygen 04/19/25 17:46 04/19/25 18:56 04/19/25 20:00 Temperature 98.1 F Pulse Rate 76 59 L Respiratory Rate 19 18 20 Blood Pressure 166/82 H 133/65 Pulse Oximetry 100 100 96 Oxygen Delivery Room Air Fraction of Inspired Oxygen 04/19/25 20:00 04/19/25 20:11 04/19/25 21:41 Temperature 98.1 F Pulse Rate 59 L 59 L Respiratory Rate 20 20 Blood Pressure 133/65 Pulse Oximetry 100 96 100 Oxygen Delivery Room Air Room Air Fraction of Inspired Oxygen 21 21 04/20/25 04:25 04/20/25 08:49 04/20/25 08:59 Temperature 97.8 F Pulse Rate 77 75 Respiratory Rate 20 16 Blood Pressure 178/80 H 166/80 H Pulse Oximetry 96 98 Oxygen Delivery Room Air Fraction of Inspired Oxygen Intake/Output Intake/Output: Intake & Output 04/17/25 04/18/25 04/19/25 04/20/25 23:59 23:59 23:59 23:59 Intake Total 1100 360 Output Total 650 Balance 450 360 Meds/Results Medications: Active Medications Generic Name Dose Route Start Last Admin Trade Name Freq PRN Reason Stop Dose Admin Acetaminophen 650 mg 04/19/25 14:55 Acetaminophen 325 Mg Tablet PO Q4H PRN Mild Pain (1-3) or Fever Clonidine HCl 0.2 mg 04/20/25 06:00 04/20/25 05:58 Clonidine Hcl 0.2 Mg Tablet PO 0.2 mg Q8HR BECCA Administration Hydralazine HCl 25 mg 04/20/25 09:00 04/20/25 08:54 Hydralazine Hcl 25 Mg Tablet BY MOUTH 25 mg QID BECCA Administration Insulin Aspart 3 - 6 units 04/19/25 17:00 04/20/25 08:01 Insulin Aspart (*Bkc) 100 Units/Ml SUB-Q Not Given TIDWM [facility] Protocol Latanoprost 1 drop 04/19/25 23:20 04/20/25 01:07 Latanoprost 0.005% Op Soln 2.5 Ml Btl EACH EYE 1 drop QHS BECCA Administration Losartan Potassium 100 mg 04/20/25 09:00 04/20/25 08:54 Losartan Potassium 100 Mg Tablet PO 100 mg DAILY BECCA Administration Nifedipine 30 mg 04/20/25 09:00 04/20/25 08:54 Nifedipine 30 Mg Tab.Er.24 PO 30 mg DAILY BECCA Administration Ondansetron HCl 4 mg 04/19/25 14:55 Ondansetron Inj 4 Mg/2 Ml Vial IV PUSH Q4H PRN Nausea Quetiapine Fumarate 50 mg 04/19/25 23:25 04/20/25 01:07 Quetiapine Fumarate 25 Mg Tablet PO 50 mg QHS BECCA Administration Rosuvastatin Calcium 5 mg 04/20/25 09:00 04/20/25 08:54 Rosuvastatin 5 Mg Tablet BY MOUTH 5 mg DAILY BECCA Administration Timolol Maleate 1 drop 04/19/25 23:20 04/20/25 08:55 Timolol Maleate Xe 0.5% Ophth Gel Soln 5 Ml Btl EACH EYE 1 drop Q12HR BECCA Administration Labs Labs: Laboratory Results - last 24 hr 04/19/25 04/19/25 04/19/25 12:25 17:57 20:26 WBC RBC Hgb Hct MCV MCH MCHC RDW Plt Count MPV Immature Gran % (Auto) Neut % (Auto) Lymph % (Auto) [place] % (Auto) Eos % (Auto) Baso % (Auto) Lymph # (Auto) [place] # (Auto) Eos # (Auto) Baso # (Auto) Abs Immat Gran (auto) Absolute Neuts (auto) Absolute Nucleated RBC Nucleated RBC % Sodium Potassium Chloride Carbon Dioxide Anion Gap BUN Creatinine Estim Creat Clear Calc Estimated GFR Glucose POC Capillary Glucose 115 H 186 H Calcium Total Creatine Kinase 45 04/20/25 04/20/25 04/20/25 04:35 07:54 11:57 WBC 7.2 RBC 3.34 L Hgb 9.7 L Hct 29.8 L MCV 89.2 MCH 29.0 MCHC 32.6 RDW 12.9 Plt Count 186 MPV 10.6 H Immature Gran % (Auto) 0.4 Neut % (Auto) 71.9 Lymph % (Auto) 18.1 L [place] % (Auto) 8.2 Eos % (Auto) 1.3 Baso % (Auto) 0.1 L Lymph # (Auto) 1.30 [place] # (Auto) 0.6 Eos # (Auto) 0.1 Baso # (Auto) 0.0 Abs Immat Gran (auto) 0.03 Absolute Neuts (auto) 5.2 Absolute Nucleated RBC 0.000 Nucleated RBC % 0.0 Sodium 140 Potassium 3.7 Chloride 107 Carbon Dioxide 21 L Anion Gap 12 BUN 47 H Creatinine 3.01 H Estim Creat Clear Calc 14 Estimated GFR 15 L Glucose 112 H POC Capillary Glucose 121 H 204 H Calcium 8.7 Total Creatine Kinase
[2025-04-20 13:05] VITALS: BP 185/85; PULSE 85; RESP 16; TEMP 36.8; O2SAT 100
--- NOTE | 2025-04-20 14:48 | P.CONNP_ITS ---
Assessment and Plan Assessment and plan (1) Abnormal results of kidney function studies: Code(s): R94.4 - Abnormal results of kidney function studies Status: Acute Assessment and Plan: The patient has an elevated creatinine she was told by her doctor that she needs to see a kidney doctor so I assume that this is chronic kidney disease but it is hard to tell. We do not know the timing or the chronicity with which the creatinine was high. The creatinine was repeated and is still high so this is not just a lab abnormality. The patient has hypertension which can cause kidney disease. She also has diabetes which can cause kidney disease. She has hyperlipidemia as well and so could have occult vascular disease in the kidneys. There are other things that cause kidney disease as well, including glomerulonephritis, interstitial nephritis, obstruction, infiltration, stone disease, or cystic disease. ?These are unlikely because the patient has no sign or symptoms of any of these. ? To evaluate this I am going to get a renal panel, urinalysis, urine protein to creatinine ratio, FRANCISCO, ESR, complements, serum and urine immunofixation, kappa lambda ratio, and a renal ultrasound. ? We discussed ways to preserve renal function. ? ? We discussed the potential benefits of NICKY inhibitors and ARBs. Control BP This is high. At home the patient is on losartan clonidine hydralazine and nifedipine. The patient is not on a diuretic. Will add chlorthalidone. We can leave her on her ARB since her potassium is okay and the creatinine has not risen since she got here. We will know more when her labs come back from the last couple of years. The LDL cholesterol should be less than 100. This is per PCP . She is on rosuvastatin. Manage PTH. We will check this. Patient doesn't overdo the protein by taste. The patient should avoid NSAIDs The patient should stay well hydrated. She would probably be a candidate for SGLT 2 inhibitors once she is an outpatient. Control Sugars ? (2) Tremor: Code(s): R25.1 - Tremor, unspecified Status: Acute Assessment and Plan: The patient is off the gabapentin (3) Acute UTI: Code(s): N39.0 - Urinary tract infection, site not specified Status: Acute Assessment and Plan: the patient has pyuria. 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 Hospitalists to manage this (5) Renal mass, left: Code(s): N28.89 - Other specified disorders of kidney and ureter Status: Acute Assessment and Plan: she had a CT scan in 2022 which showed benign cysts in the kidneys. Will check a renal ultrasound (6) Benign essential HTN: Code(s): I10 - Essential (primary) hypertension Status: Acute Assessment and Plan: will add chlorthalidone History of Present Illness Reason for Consult Consult date: 04/20/25 Chief Complaint Chief complaint: [email or web address],uti History of Present Illness Narrative: Diana is a very pleasant 84-year-old lady who has multiple medical problems including chronic kidney disease as diagnosed by her PCP but records are unavailable, hyperlipidemia, aortic stenosis, diabetes, neuropathy, degenerative joint disease, hypertension, hypercalcemia, and glaucoma. The patient came in the hospital because she had tremors. The patient was seen in the ER and it was felt that gabapentin was causing the tremors so these were discontinued. the tremors continued and so the patient was admitted to the hospital. Her creatinine was high. She says that her primary care doctor noted that her kidney function was a bit off and so has asked her to see a metal dresser but she has not made it to the office yet There has been no nausea, vomiting, diarrhea, fevers, chills, or other flu like illnesses.? The patient has had no bloody urine, foamy urine, kidney stones, painful urination, or bladder infections. The patient is not taking any new medications or new over the counter meds.? No NSAIDs reported. the patient has hypertension. This is been going on for a few years. Blood pressure has been well controlled. The patient has diabetes. This is also been going on for few years. She does have neuropathy. She had hypercalcemia last year but this has come down and is normal now patient does not smoke and never did. She does not drink alcohol. Review of Systems 2 Constitutional: Constitutional: Reports no additional constitutional complaints Eyes: Eyes: Reports no additional eye complaints ENT: Reports system reviewed and no additional complaints, except as documented Cardiovascular: Cardiovascular: Reports no additional cardiovascular complaints Respiratory: Respiratory: Reports no additional respiratory complaints Gastrointestinal: Gastrointestinal: Reports no additional gastrointestinal complaints Genitourinary: Genitourinary: Reports no additional female genitourinary complaints Musculoskeletal: Musculoskeletal: Reports no additional musculoskeletal complaints Integumentary/Breasts: Skin/Breast: Reports system reviewed and no additional complaints, except as docu Neurologic: Reports system reviewed and no additional complaints, except as documented Psychiatric: Psychiatric: Reports no additional psychiatric complaints Endocrine: Endocrine: Reports no additional endocrine complaints [facility] Past Medical History Medical History Diabetic peripheral neuropathy CKD (chronic kidney disease) stage 3, GFR 30-59 ml/min Aortic stenosis Hyperlipidemia Lumbar spondylosis Degenerative joint disease of knee Benign essential HTN Type 2 diabetes mellitus with diabetic chronic kidney disease Hypercalcemia Glaucoma Surgical History Surgical History Status post cataract extraction of both eyes with insertion of intraocular lens History of right hip replacement Family History Family History Father Hypertension Cerebrovascular accident Sibling Hypertension Cerebrovascular accident Mother Family history of macular degeneration Social History Social History Social History: She is and lives in her own home. She does not have any children. 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 She has a home caregiver that comes Saturday 09:00 to 12. She ambulates with a walker. She used to drink on occasion but has not done so in at least 40 years. She smoked briefly but quit in 1975. She denies illicit substance use. Code status: DNR/DNI per patient request Healthcare power of [place] attorney: Abhishek (nephew) Smoking packs per day: 1 Smoking cigarettes per day: 20.0 Years smoked: 10 Smoking pack-years: 10.00 Smoking status: Former smoker Second hand tobacco smoke exposure: No Smoking end date: 05/21/76 Additional smoking assessment comments: former smoker Alcohol intake: never Alcohol use details: STOPPED YRS AGO D/T MEDICATIONS Substance use: never Substance use type: does not use Do You Feel Safe in your Home?: Yes Lack of Transportation: No Lack of Food: Never True Current Housing: I Have Housing Concerned About Future Housing: No Difficulty Paying Gas/Electric Bills: No Difficulty Paying for Meds: No Currently Unemployed: No Education: High School Diploma/GED Difficulty w/ Childcare or Family Care: No Living arrangements: alone Additional living arrangements comments: TEMPORARY STAYING AT [facility] Occupation/Education: retired 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 [employer] Gender identity (if verbalized by the patient): Female Sexual Orientation (if Verbalized by the Patient): Straight or Heterosexual Spiritual care concerns: No Meds Home Medications and Allergies Home Medications ?Medication ?Instructions ?Recorded ?Confirmed ?Type acetaminophen 500 mg tablet 1,000 mg PO QID PRN Pain 09/25/23 04/19/25 History latanoprost 0.005 % eye drops See Rx Instructions .Route 12/21/23 04/19/25 Rx .COMPLEX #7.5 mL timolol maleate 0.5 % eye gel See Rx Instructions .Route 12/21/23 04/19/25 Rx forming solution .COMPLEX #20 mL rosuvastatin 5 mg tablet See Rx Instructions .Route 10/20/24 04/19/25 Rx .COMPLEX #90 tabs furosemide 40 mg tablet 40 mg PO QAM #30 tabs 01/15/25 04/19/25 Rx losartan 100 mg tablet 100 mg PO DAILY #90 tabs 02/01/25 04/19/25 Rx clonidine HCl 0.1 mg tablet See Rx Instructions .Route 02/22/25 04/19/25 Rx .COMPLEX #540 tabs hydralazine 25 mg tablet See Rx Instructions .Route 03/15/25 04/19/25 Rx .COMPLEX #360 tabs quetiapine 25 mg tablet 50 mg (2 x 25 mg) PO QHS #60 tabs 03/15/25 04/19/25 Rx nifedipine 30 mg tablet,extended 30 mg PO DAILY #30 tabs 03/30/25 04/19/25 Rx release gabapentin 100 mg capsule 100 mg PO TID #90 caps 04/14/25 04/19/25 Rx metformin 1,000 mg tablet 1,000 mg PO BID #180 tabs 04/14/25 04/19/25 Rx nystatin 100,000 unit/gram topical 1 applic topical BID #15 grams 04/14/25 04/19/25 Rx powder Allergies Allergy/AdvReac Type Severity Reaction Status Date / Time NICKY Inhibitors Allergy Unknown abdominal Verified 04/19/25 18:13 pain atorvastatin Allergy Unknown abdominal Verified 04/19/25 18:13 pain amlodipine AdvReac Mild Dizziness Verified 04/19/25 18:13 lisinopril AdvReac Cough Verified 04/19/25 18:13 Vital Signs Vital Signs - 24 hr 04/19/25 15:05 04/19/25 15:59 04/19/25 16:00 Temperature 98.5 F Pulse Rate 103 H 86 82 Respiratory Rate 20 19 18 Blood Pressure 163/110 H 137/91 H 142/70 H Pulse Oximetry 96 100 100 Oxygen Delivery Fraction of Inspired Oxygen 04/19/25 17:46 04/19/25 18:56 04/19/25 20:00 Temperature 98.1 F Pulse Rate 76 59 L Respiratory Rate 19 18 20 Blood Pressure 166/82 H 133/65 Pulse Oximetry 100 100 96 Oxygen Delivery Room Air Fraction of Inspired Oxygen 04/19/25 20:00 04/19/25 20:11 04/19/25 21:41 Temperature 98.1 F Pulse Rate 59 L 59 L Respiratory Rate 20 20 Blood Pressure 133/65 Pulse Oximetry 100 96 100 Oxygen Delivery Room Air Room Air Fraction of Inspired Oxygen 21 21 04/20/25 04:25 04/20/25 08:49 04/20/25 08:59 Temperature 97.8 F Pulse Rate 77 75 Respiratory Rate 20 16 Blood Pressure 178/80 H 166/80 H Pulse Oximetry 96 98 Oxygen Delivery Room Air Fraction of Inspired Oxygen 04/20/25 13:05 Temperature 98.2 F Pulse Rate 85 Respiratory Rate 16 Blood Pressure 185/85 H Pulse Oximetry 100 Oxygen Delivery Fraction of Inspired Oxygen Exam 2 Narrative: Exam Narrative: Well developed well-nourished Female in no acute distress Skin is warm and dry without rash Head normocephalic atraumatic Eyes normal sclerae and conjunctivae Mouth normal lips teeth and gums Neck no nodes no thyromegaly no carotid bruits Axillae no nodes Back no CVA tenderness Lungs symmetric and clear to auscultation and percussion Heart regular rate and rhythm without rub or gallop Abdomen bowel sounds positive soft nontender, no HSM, masses, or bruits. Extremities no cyanosis, clubbing, or edema Pulses 2+ equal in radial arteries Psychological not anxious or depressed Neuro alert and oriented x3 motor 5/5 cranial nerves 2-12 intact reflexes 2+ and equal in the biceps and patellar tendons cerebellar normal rapid alternating movements Results Lab Results 04/20/25 04:35 04/20/25 04:35 Lab results: Most recent lab results Calcium 8.7 mg/dL (8.4-10.2) 04/20/25 04:35
[2025-04-20 15:46] LABS: Erythrocyte Sedimentation Rate 90 mm/hr (0-20)
[2025-04-20 15:51] LABS: Parathyroid Intact 187.6 pg/mL (14.5-75.2)
[2025-04-20 15:52] LABS: Albumin Level 3.6 g/dL (3.5-5.1); Anion Gap 9 mmol/L (4-12); Blood Urea Nitrogen 46 mg/dL (7-17); CRP 4.8 mg/dL (<1.0); Calcium 9.1 mg/dL (8.4-10.2); Carbon Dioxide 22 mmol/L (22-30); Chloride 108 mmol/L (98-107); Creatine Kinase 45 U/L (30-135); Estimated CRCL calculation 14 ml/min; Estimated Glomerular Filt Rate 15; Glucose 142 mg/dL (65-110); Phosphorus 5.3 mg/dL (2.5-4.5); Potassium 3.7 mmol/L (3.4-5.0); Sodium 139 mmol/L (137-145)
[2025-04-20 16:32] LABS: Eosinophil Urine None Seen % (None Seen); Urine Eos QC 2nd Tech Confirmed
[2025-04-20 16:33] LABS: Sodium Urine Random 92 meq/L; Urea Random Urine 347 MG/DL
[2025-04-20 16:34] LABS: Creatinine Urine 45.6 mg/dL; Total Protein Urine Random 75 mg/dL; Ur Ttl Prot Creatinine Ratio 1.64 mg/mg (0-0.20)
[2025-04-20 17:14] LABS: Glucose Point of Care 136 mg/dl (65-105)
[2025-04-20 17:31] LABS: Complement C3 110 mg/dL (88-165)
[2025-04-20 19:38] VITALS: BP 144/64; PULSE 91; RESP 20; TEMP 37.4; O2SAT 94
[2025-04-20 20:00] VITALS: PULSE 91; RESP 20; O2SAT 94
[2025-04-20 20:28] LABS: Glucose Point of Care 215 mg/dl (65-105)
[2025-04-20] MEDS: ACETAMINOPHEN 325 MG TABLET 650 MG PO (21:02)
[2025-04-21 05:13] VITALS: BP 151/68; PULSE 80; RESP 20; TEMP 36.9; O2SAT 96
[2025-04-21] MEDS: cloNIDine HCL 0.2 MG TABLET PO ×3 (05:20→21:16)
[2025-04-21] MEDS: ACETAMINOPHEN 325 MG TABLET 650 MG PO ×2 (05:20→21:16)
[2025-04-21 05:38] LABS: Basophils Percent Auto 0.1 % (0.2-1.2); Eosinophils Absolute Auto 0.1 K/mm3 (0-0.3); Eosinophils Percent Auto 1.7 % (0-4.4); Hematocrit 30.5 % (37.0-47.0); Hemoglobin 9.9 g/dL (12.0-15.0); Immature Granulocyte Absolute 0.03 K/mm3 (0.00-0.031); Immature Granulocyte Percent A 0.4 % (0-0.5); Lymphocytes Percent Auto 15.5 % (18.3-44.2); Mean Corpuscular HGB Conc 32.5 g/dl (32-36); Mean Corpuscular Hemoglobin 28.9 pg (26-34); Mean Corpuscular Volume 89.2 fl (80-100); Mean Platelet Volume 10.4 fl (7.4-10.4); Monocytes Absolute Auto 0.8 K/mm3 (0.1-0.6); Neutrophils Absolute Auto 6.1 K/mm3 (1.3-6.7); Neutrophils Percent Auto 72.3 % (45.5-73.1); Platelet Count Result 179 k/mm3 (150-375); Red Blood Count 3.42 M/mm3 (4.2-5.4); Red Cell Distribution Width 13.1 % (11.5-14.5); White Blood Count 8.4 K/mm3 (4.5-10.0)
[2025-04-21 05:55] LABS: Albumin Level 3.6 g/dL (3.5-5.1); Anion Gap 11 mmol/L (4-12); Blood Urea Nitrogen 44 mg/dL (7-17); Calcium 9.4 mg/dL (8.4-10.2); Carbon Dioxide 22 mmol/L (22-30); Chloride 107 mmol/L (98-107); Estimated CRCL calculation 13 ml/min; Estimated Glomerular Filt Rate 14; Glucose 128 mg/dL (65-110); Magnesium 1.4 mg/dL (1.6-2.3); Phosphorus 5.3 mg/dL (2.5-4.5); Potassium 3.5 mmol/L (3.4-5.0); Sodium 140 mmol/L (137-145)
[2025-04-21 08:15] LABS: Glucose Point of Care 131 mg/dl (65-105)
[2025-04-21] MEDS: ROSUVASTATIN 5 MG TABLET BY MOUTH (08:25)
[2025-04-21] MEDS: LOSARTAN POTASSIUM 100 MG TABLET PO (08:25)
[2025-04-21] MEDS: NIFEdipine 30 MG TAB.ER.24 PO (08:25)
[2025-04-21] MEDS: hydrALAZINE HCL 25 MG TABLET BY MOUTH ×4 (08:26→21:16)
[2025-04-21] MEDS: TIMOLOL MALEATE XE 0.5% OPHTH GEL SOLN 5 ML BTL 1 DROP EACH EYE ×2 (08:26→21:16)
[2025-04-21] MEDS: MAGNESIUM SULF 2 GM/WATER 50ML 2 GM/50 ML BAG IVPB (09:13)
--- NOTE | 2025-04-21 11:28 | PM.IMPN ---
Progress Note: A&P Assessment and Plan (1) Tremor: Code(s): R25.1 - Tremor, unspecified Status: Acute Assessment and Plan: Tremors better. [place] related to recently started gabapentin and/or UTI. Gabapentin stopped and she is feeling better. Continue to monitor. PT/OT (2) Acute kidney injury superimposed on CKD: Code(s): N17.9 - Acute kidney failure, unspecified; N18.9 - Chronic kidney disease, unspecified Status: Acute Assessment and Plan: Patient with LARISA with Cr 3.06 on admission. Baseline was 1.17 in September 2024 and 1.88 on 03/03/25. Was on Lasix which was held. Renal US was normal but did show distended bladder. Urine studies noted. Urine eos negative. TCk normal. C3/C4 normal. Urine prot/Cr ration 1.6gm. iPTH 187. UPEP/SPEP pending. Repeat Cr unchanged at 3.12. Nephrology following and appreciate their help. Check PVR. Consider renal bx (3) Gabapentin adverse reaction: Qualifiers: Encounter type: initial encounter Qualified Code(s): T42.6X5A - Adverse effect of other antiepileptic and sedative-hypnotic drugs, initial encounter Code(s): T42.6X5A - Adverse effect of other antiepileptic and sedative-hypnotic drugs, initial encounter Status: Acute Assessment and Plan: As above. (4) Abnormal urinalysis: Code(s): R82.90 - Unspecified abnormal findings in urine Status: Acute Assessment and Plan: UA is concerning for UTI. UCx positive Rocephin started. UCx growing GNB. Follow up on UCx results. (5) Benign essential HTN: Code(s): I10 - Essential (primary) hypertension Status: Acute Assessment and Plan: Patient's blood pressure was reviewed on 04/21 Blood pressure remains elevated at times Will continue current medications. Continue to follow. Plan DVT Prophylaxis - SCDs Code status - DNR Subjective Date/time seen: 04/21/25 11:28 Interval history: 84yo female with CKD, aortic stenosis, HTN, chronic lower extremity edema on Lasix, diabetic peripheral neuropathy, spinal stenosis and glaucoma who presented to the ER with tremors and grinding of her teeth x4 days. She was recently started on gabapentin for her peripheral neuropathy. Feeling better. She was able to sit up in the chair longer today. No CP or SOB. eating okay but not much. No symptoms of urine retention.. Exam Narrative: AF 98.4 151/68 80 20 96% ra Gen - NARD Chest - CTA bilaterally, nml RR CV - RRR S1/S2 with 2/6 systolic murmur Abd - Soft, NT/ND, Positive BS Ext - No pedal edema. Neuro - Alert and appropriate. Psych - Nml mood and affect Skin - Warm and dry Objective Data Vital Signs Vital Signs: Vital Signs - 24 hr 04/20/25 13:05 04/20/25 19:38 04/20/25 20:00 Temperature 98.2 F 99.3 F Pulse Rate 85 91 91 Respiratory Rate 16 20 20 Blood Pressure 185/85 H 144/64 H Pulse Oximetry 100 94 94 Oxygen Delivery Room Air Fraction of Inspired Oxygen 21 04/21/25 05:13 04/21/25 08:25 Temperature 98.4 F Pulse Rate 80 Respiratory Rate 20 Blood Pressure 151/68 H Pulse Oximetry 96 Oxygen Delivery Room Air Fraction of Inspired Oxygen Intake/Output Intake/Output: Intake & Output 04/18/25 04/19/25 04/20/25 04/21/25 23:59 23:59 23:59 23:59 Intake Total 1100 1150 530 Output Total 650 300 Balance 450 1150 230 Meds/Results Medications: Active Medications Generic Name Dose Route Start Last Admin Trade Name Freq PRN Reason Stop Dose Admin Acetaminophen 650 mg 04/19/25 14:55 04/21/25 05:20 Acetaminophen 325 Mg Tablet PO 650 mg Q4H PRN Administration Mild Pain (1-3) or Fever Clonidine HCl 0.2 mg 04/20/25 06:00 04/21/25 05:20 Clonidine Hcl 0.2 Mg Tablet PO 0.2 mg Q8HR BECCA Administration Hydralazine HCl 25 mg 04/20/25 09:00 04/21/25 08:26 Hydralazine Hcl 25 Mg Tablet BY MOUTH 25 mg QID BECCA Administration Ceftriaxone Sodium 1 gm in 50 mls @ 100 mls/hr 04/21/25 07:00 04/21/25 08:56 Rocephin 1 Gm/Ns 50 Ml IVPB Infused Q24H BECCA Infusion Insulin Aspart 3 - 6 units 04/19/25 17:00 04/21/25 08:21 Insulin Aspart (*Bkc) 100 Units/Ml SUB-Q Not Given TIDWM [facility] Protocol Latanoprost 1 drop 04/19/25 23:20 04/20/25 21:03 Latanoprost 0.005% Op Soln 2.5 Ml Btl EACH EYE 1 drop QHS BECCA Administration Losartan Potassium 100 mg 04/20/25 09:00 04/21/25 08:25 Losartan Potassium 100 Mg Tablet PO 100 mg DAILY BECCA Administration Nifedipine 30 mg 04/20/25 09:00 04/21/25 08:25 Nifedipine 30 Mg Tab.Er.24 PO 30 mg DAILY BECCA Administration Ondansetron HCl 4 mg 04/19/25 14:55 Ondansetron Inj 4 Mg/2 Ml Vial IV PUSH Q4H PRN Nausea Quetiapine Fumarate 50 mg 04/19/25 23:25 04/20/25 21:02 Quetiapine Fumarate 25 Mg Tablet PO 50 mg QHS BECCA Administration Rosuvastatin Calcium 5 mg 04/20/25 09:00 04/21/25 08:25 Rosuvastatin 5 Mg Tablet BY MOUTH 5 mg DAILY BECCA Administration Timolol Maleate 1 drop 04/19/25 23:20 04/21/25 08:26 Timolol Maleate Xe 0.5% Ophth Gel Soln 5 Ml Btl EACH EYE 1 drop Q12HR BECCA Administration Radiology Results: ITS Impressions Renal Ultrasound 04/21/25 06:46 Impression: Unremarkable ultrasound of the kidneys and urinary bladder. Labs Labs: Laboratory Results - last 24 hr 04/20/25 04/20/25 04/20/25 11:57 15:20 15:38 WBC RBC Hgb Hct MCV MCH MCHC RDW Plt Count MPV Immature Gran % (Auto) Neut % (Auto) Lymph % (Auto) [place] % (Auto) Eos % (Auto) Baso % (Auto) Lymph # (Auto) [place] # (Auto) Eos # (Auto) Baso # (Auto) Abs Immat Gran (auto) Absolute Neuts (auto) Absolute Nucleated RBC Nucleated RBC % ESR 90 H Sodium 139 Potassium 3.7 Chloride 108 H Carbon Dioxide 22 Anion Gap 9 BUN 46 H Creatinine 3.01 H Estim Creat Clear Calc 14 Estimated GFR 15 L Glucose 142 H POC Capillary Glucose 204 H Calcium 9.1 Phosphorus 5.3 H Magnesium Total Creatine Kinase 45 C-Reactive Protein 4.8 H Albumin 3.6 PTH Intact 187.6 H Urine Eosinophils None seen U Random Total Protein 75 Ur Random Sodium Ur Random Urea Urine Creatinine Protein/Creat Ratio 2 Complement C3 110 Complement C4 36.2 04/20/25 04/20/25 04/20/25 15:38 15:38 15:38 WBC RBC Hgb Hct MCV MCH MCHC RDW Plt Count MPV Immature Gran % (Auto) Neut % (Auto) Lymph % (Auto) [place] % (Auto) Eos % (Auto) Baso % (Auto) Lymph # (Auto) [place] # (Auto) Eos # (Auto) Baso # (Auto) Abs Immat Gran (auto) Absolute Neuts (auto) Absolute Nucleated RBC Nucleated RBC % ESR Sodium Potassium Chloride Carbon Dioxide Anion Gap BUN Creatinine Estim Creat Clear Calc Estimated GFR Glucose POC Capillary Glucose Calcium Phosphorus Magnesium Total Creatine Kinase C-Reactive Protein Albumin PTH Intact Urine Eosinophils U Random Total Protein Cancelled Ur Random Sodium 92 Cancelled Ur Random Urea 347 Cancelled Urine Creatinine 45.6 Protein/Creat Ratio 2 Complement C3 Complement C4 04/20/25 04/20/25 04/20/25 15:38 15:38 15:38 WBC RBC Hgb Hct MCV MCH MCHC RDW Plt Count MPV Immature Gran % (Auto) Neut % (Auto) Lymph % (Auto) [place] % (Auto) Eos % (Auto) Baso % (Auto) Lymph # (Auto) [place] # (Auto) Eos # (Auto) Baso # (Auto) Abs Immat Gran (auto) Absolute Neuts (auto) Absolute Nucleated RBC Nucleated RBC % ESR Sodium Potassium Chloride Carbon Dioxide Anion Gap BUN Creatinine Estim Creat Clear Calc Estimated GFR Glucose POC Capillary Glucose Calcium Phosphorus Magnesium Total Creatine Kinase C-Reactive Protein Albumin PTH Intact Urine Eosinophils U Random Total Protein Ur Random Sodium Ur Random Urea Urine Creatinine Cancelled Cancelled Protein/Creat Ratio 2 1.64 H Cancelled Complement C3 Complement C4 04/20/25 04/20/25 04/21/25 17:08 19:44 05:09 WBC 8.4 RBC 3.42 L Hgb 9.9 L Hct 30.5 L MCV 89.2 MCH 28.9 MCHC 32.5 RDW 13.1 Plt Count 179 MPV 10.4 Immature Gran % (Auto) 0.4 Neut % (Auto) 72.3 Lymph % (Auto) 15.5 L [place] % (Auto) 10.0 H Eos % (Auto) 1.7 Baso % (Auto) 0.1 L Lymph # (Auto) 1.30 [place] # (Auto) 0.8 H Eos # (Auto) 0.1 Baso # (Auto) 0.0 Abs Immat Gran (auto) 0.03 Absolute Neuts (auto) 6.1 Absolute Nucleated RBC 0.000 Nucleated RBC % 0.0 ESR Sodium 140 Potassium 3.5 Chloride 107 Carbon Dioxide 22 Anion Gap 11 BUN 44 H Creatinine 3.12 H Estim Creat Clear Calc 13 Estimated GFR 14 L Glucose 128 H POC Capillary Glucose 136 H 215 H Calcium 9.4 Phosphorus 5.3 H Magnesium 1.4 L Total Creatine Kinase C-Reactive Protein Albumin 3.6 PTH Intact Urine Eosinophils U Random Total Protein Ur Random Sodium Ur Random Urea Urine Creatinine Protein/Creat Ratio 2 Complement C3 Complement C4 04/21/25 08:12 WBC RBC Hgb Hct MCV MCH MCHC RDW Plt Count MPV Immature Gran % (Auto) Neut % (Auto) Lymph % (Auto) [place] % (Auto) Eos % (Auto) Baso % (Auto) Lymph # (Auto) [place] # (Auto) Eos # (Auto) Baso # (Auto) Abs Immat Gran (auto) Absolute Neuts (auto) Absolute Nucleated RBC Nucleated RBC % ESR Sodium Potassium Chloride Carbon Dioxide Anion Gap BUN Creatinine Estim Creat Clear Calc Estimated GFR Glucose POC Capillary Glucose 131 H Calcium Phosphorus Magnesium Total Creatine Kinase C-Reactive Protein Albumin PTH Intact Urine Eosinophils U Random Total Protein Ur Random Sodium Ur Random Urea Urine Creatinine Protein/Creat Ratio 2 Complement C3 Complement C4
--- NOTE | 2025-04-21 12:37 | P.PNNP_ITS ---
Progress Note: A&P Assessment and Plan (1) Abnormal results of kidney function studies: Code(s): R94.4 - Abnormal results of kidney function studies Status: Acute Assessment and Plan: The patient has an elevated creatinine . No records yet from the primary care physician. The presumption is that this is CKD. The creatinine was 3.06 when she got here and now is 3.12. Basically within lab variation. Renal ultrasound is unremarkable CPK is okay C3 and C4 are normal. Other serology and immunofixation are pending UA showed white cells and culture shows Gram-negative bacilli. Sensitivities pending. The patient is on ceftriaxone urine electrolytes and fractional excretion of urea showed non pre renal state. urine protein is 1640milligrams/gram of creatinine Most likely CKD is due to hypertension, diabetes, occult vascular disease ? We discussed the potential benefits of NICKY inhibitors and ARBs. Control BP This is high. At home the patient is on losartan clonidine hydralazine and nifedipine adding chlorthalidone. We can leave her on her ARB since her potassium is okay and the creatinine has not risen since she got here. The LDL cholesterol should be less than 100. This is per PCP . She is on rosuvastatin. PTH is high. Check vitamin-D Patient doesn't overdo the protein by taste. The patient should avoid NSAIDs The patient should stay well hydrated. She would probably be a candidate for SGLT 2 inhibitors once she is an outpatient. Control Sugars ? (2) Tremor: Code(s): R25.1 - Tremor, unspecified Status: Acute Assessment and Plan: Improved. The patient is off the gabapentin (3) Acute UTI: Code(s): N39.0 - Urinary tract infection, site not specified Status: Acute Assessment and Plan: the patient has pyuria. Urine cultures Positive. await sensitivity The patient is on ceftriaxone (4) Type 2 diabetes mellitus with hyperglycemia: Qualifiers: Diabetes mellitus moth exterminator insulin use: with mcfp use Qualified Code(s): E11.65 - Type 2 diabetes mellitus with hyperglycemia; Z79.4 - termite treater (current) use of insulin Code(s): E11.65 - Type 2 diabetes mellitus with hyperglycemia Status: Acute Assessment and Plan: on sliding scale insulin. Hospitalists to manage this (5) Renal mass, left: Code(s): N28.89 - Other specified disorders of kidney and ureter Status: Acute Assessment and Plan: she had a CT scan in 2022 which showed benign cysts in the kidneys. ultrasound is unremarkable (6) Benign essential HTN: Code(s): I10 - Essential (primary) hypertension Status: Acute Assessment and Plan: will add chlorthalidone Subjective Date/time seen: 04/21/25 12:37 Interval history: Diana is feeling better today. No more tremors. Eating pretty well. No shortness of breath. Review of Systems Cardiovascular: Cardiovascular: Reports no additional cardiovascular complaints Respiratory: Respiratory: Reports no additional respiratory complaints Gastrointestinal: Gastrointestinal: Reports no additional gastrointestinal complaints Genitourinary: Genitourinary: Reports no additional female genitourinary complaints Exam Narrative: WDWN in NAD skin no rash head ncat lungs clear cor reg no rub abd BS+ nontender and soft ext no edema. Objective Data Vital Signs Vital Signs: Vital Signs - 24 hr 04/20/25 13:05 04/20/25 19:38 04/20/25 20:00 Temperature 98.2 F 99.3 F Pulse Rate 85 91 91 Respiratory Rate 16 20 20 Blood Pressure 185/85 H 144/64 H Pulse Oximetry 100 94 94 Oxygen Delivery Room Air Fraction of Inspired Oxygen 21 04/21/25 05:13 04/21/25 08:25 Temperature 98.4 F Pulse Rate 80 Respiratory Rate 20 Blood Pressure 151/68 H Pulse Oximetry 96 Oxygen Delivery Room Air Fraction of Inspired Oxygen Intake/Output Intake/Output: Intake & Output 04/18/25 04/19/25 04/20/25 04/21/25 23:59 23:59 23:59 23:59 Intake Total 1100 1150 530 Output Total 650 300 Balance 450 1150 230 Meds/Results Medications: Active Medications Generic Name Dose Route Start Last Admin Trade Name Freq PRN Reason Stop Dose Admin Acetaminophen 650 mg 04/19/25 14:55 04/21/25 05:20 Acetaminophen 325 Mg Tablet PO 650 mg Q4H PRN Administration Mild Pain (1-3) or Fever Clonidine HCl 0.2 mg 04/20/25 06:00 04/21/25 05:20 Clonidine Hcl 0.2 Mg Tablet PO 0.2 mg Q8HR BECCA Administration Hydralazine HCl 25 mg 04/20/25 09:00 04/21/25 08:26 Hydralazine Hcl 25 Mg Tablet BY MOUTH 25 mg QID BECCA Administration Ceftriaxone Sodium 1 gm in 50 mls @ 100 mls/hr 04/21/25 07:00 04/21/25 08:56 Rocephin 1 Gm/Ns 50 Ml IVPB Infused Q24H BECCA Infusion Insulin Aspart 3 - 6 units 04/19/25 17:00 04/21/25 08:21 Insulin Aspart (*Bkc) 100 Units/Ml SUB-Q Not Given TIDWM [facility] Protocol Latanoprost 1 drop 04/19/25 23:20 04/20/25 21:03 Latanoprost 0.005% Op Soln 2.5 Ml Btl EACH EYE 1 drop QHS BECCA Administration Losartan Potassium 100 mg 04/20/25 09:00 04/21/25 08:25 Losartan Potassium 100 Mg Tablet PO 100 mg DAILY BECCA Administration Nifedipine 30 mg 04/20/25 09:00 04/21/25 08:25 Nifedipine 30 Mg Tab.Er.24 PO 30 mg DAILY BECCA Administration Ondansetron HCl 4 mg 04/19/25 14:55 Ondansetron Inj 4 Mg/2 Ml Vial IV PUSH Q4H PRN Nausea Quetiapine Fumarate 50 mg 04/19/25 23:25 04/20/25 21:02 Quetiapine Fumarate 25 Mg Tablet PO 50 mg QHS BECCA Administration Rosuvastatin Calcium 5 mg 04/20/25 09:00 04/21/25 08:25 Rosuvastatin 5 Mg Tablet BY MOUTH 5 mg DAILY BECCA Administration Timolol Maleate 1 drop 04/19/25 23:20 04/21/25 08:26 Timolol Maleate Xe 0.5% Ophth Gel Soln 5 Ml Btl EACH EYE 1 drop Q12HR BECCA Administration Radiology Results: ITS Impressions Renal Ultrasound 04/21/25 06:46 Impression: Unremarkable ultrasound of the kidneys and urinary bladder. Labs Labs: Laboratory Results - last 24 hr 04/20/25 04/20/25 04/20/25 11:57 15:20 15:38 WBC RBC Hgb Hct MCV MCH MCHC RDW Plt Count MPV Immature Gran % (Auto) Neut % (Auto) Lymph % (Auto) [place] % (Auto) Eos % (Auto) Baso % (Auto) Lymph # (Auto) [place] # (Auto) Eos # (Auto) Baso # (Auto) Abs Immat Gran (auto) Absolute Neuts (auto) Absolute Nucleated RBC Nucleated RBC % ESR 90 H Sodium 139 Potassium 3.7 Chloride 108 H Carbon Dioxide 22 Anion Gap 9 BUN 46 H Creatinine 3.01 H Estim Creat Clear Calc 14 Estimated GFR 15 L Glucose 142 H POC Capillary Glucose 204 H Calcium 9.1 Phosphorus 5.3 H Magnesium Total Creatine Kinase 45 C-Reactive Protein 4.8 H Albumin 3.6 PTH Intact 187.6 H Urine Eosinophils None seen U Random Total Protein 75 Ur Random Sodium Ur Random Urea Urine Creatinine Protein/Creat Ratio 2 Complement C3 110 Complement C4 36.2 04/20/25 04/20/25 04/20/25 15:38 15:38 15:38 WBC RBC Hgb Hct MCV MCH MCHC RDW Plt Count MPV Immature Gran % (Auto) Neut % (Auto) Lymph % (Auto) [place] % (Auto) Eos % (Auto) Baso % (Auto) Lymph # (Auto) [place] # (Auto) Eos # (Auto) Baso # (Auto) Abs Immat Gran (auto) Absolute Neuts (auto) Absolute Nucleated RBC Nucleated RBC % ESR Sodium Potassium Chloride Carbon Dioxide Anion Gap BUN Creatinine Estim Creat Clear Calc Estimated GFR Glucose POC Capillary Glucose Calcium Phosphorus Magnesium Total Creatine Kinase C-Reactive Protein Albumin PTH Intact Urine Eosinophils U Random Total Protein Cancelled Ur Random Sodium 92 Cancelled Ur Random Urea 347 Cancelled Urine Creatinine 45.6 Protein/Creat Ratio 2 Complement C3 Complement C4 04/20/25 04/20/25 04/20/25 15:38 15:38 15:38 WBC RBC Hgb Hct MCV MCH MCHC RDW Plt Count MPV Immature Gran % (Auto) Neut % (Auto) Lymph % (Auto) [place] % (Auto) Eos % (Auto) Baso % (Auto) Lymph # (Auto) [place] # (Auto) Eos # (Auto) Baso # (Auto) Abs Immat Gran (auto) Absolute Neuts (auto) Absolute Nucleated RBC Nucleated RBC % ESR Sodium Potassium Chloride Carbon Dioxide Anion Gap BUN Creatinine Estim Creat Clear Calc Estimated GFR Glucose POC Capillary Glucose Calcium Phosphorus Magnesium Total Creatine Kinase C-Reactive Protein Albumin PTH Intact Urine Eosinophils U Random Total Protein Ur Random Sodium Ur Random Urea Urine Creatinine Cancelled Cancelled Protein/Creat Ratio 2 1.64 H Cancelled Complement C3 Complement C4 04/20/25 04/20/25 04/21/25 17:08 19:44 05:09 WBC 8.4 RBC 3.42 L Hgb 9.9 L Hct 30.5 L MCV 89.2 MCH 28.9 MCHC 32.5 RDW 13.1 Plt Count 179 MPV 10.4 Immature Gran % (Auto) 0.4 Neut % (Auto) 72.3 Lymph % (Auto) 15.5 L [place] % (Auto) 10.0 H Eos % (Auto) 1.7 Baso % (Auto) 0.1 L Lymph # (Auto) 1.30 [place] # (Auto) 0.8 H Eos # (Auto) 0.1 Baso # (Auto) 0.0 Abs Immat Gran (auto) 0.03 Absolute Neuts (auto) 6.1 Absolute Nucleated RBC 0.000 Nucleated RBC % 0.0 ESR Sodium 140 Potassium 3.5 Chloride 107 Carbon Dioxide 22 Anion Gap 11 BUN 44 H Creatinine 3.12 H Estim Creat Clear Calc 13 Estimated GFR 14 L Glucose 128 H POC Capillary Glucose 136 H 215 H Calcium 9.4 Phosphorus 5.3 H Magnesium 1.4 L Total Creatine Kinase C-Reactive Protein Albumin 3.6 PTH Intact Urine Eosinophils U Random Total Protein Ur Random Sodium Ur Random Urea Urine Creatinine Protein/Creat Ratio 2 Complement C3 Complement C4 04/21/25 08:12 WBC RBC Hgb Hct MCV MCH MCHC RDW Plt Count MPV Immature Gran % (Auto) Neut % (Auto) Lymph % (Auto) [place] % (Auto) Eos % (Auto) Baso % (Auto) Lymph # (Auto) [place] # (Auto) Eos # (Auto) Baso # (Auto) Abs Immat Gran (auto) Absolute Neuts (auto) Absolute Nucleated RBC Nucleated RBC % ESR Sodium Potassium Chloride Carbon Dioxide Anion Gap BUN Creatinine Estim Creat Clear Calc Estimated GFR Glucose POC Capillary Glucose 131 H Calcium Phosphorus Magnesium Total Creatine Kinase C-Reactive Protein Albumin PTH Intact Urine Eosinophils U Random Total Protein Ur Random Sodium Ur Random Urea Urine Creatinine Protein/Creat Ratio 2 Complement C3 Complement C4
[2025-04-21 12:39] LABS: Glucose Point of Care 140 mg/dl (65-105)
[2025-04-21 14:00] VITALS: BP 136/68; PULSE 77; RESP 18; TEMP 37.2; O2SAT 96
[2025-04-21 16:47] LABS: Complement Total CH50 59 U/mL (31-60)
[2025-04-21 16:56] LABS: Glucose Point of Care 166 mg/dl (65-105)
[2025-04-21 20:00] VITALS: PULSE 88; RESP 18; O2SAT 97
[2025-04-21 20:42] VITALS: BP 145/80; PULSE 88; RESP 18; TEMP 36.9; O2SAT 97
[2025-04-21 20:57] LABS: Glucose Point of Care 244 mg/dl (65-105)
[2025-04-21] MEDS: LATANOPROST 0.005% OP SOLN 2.5 ML BTL 1 DROP EACH EYE (21:16)
[2025-04-21] MEDS: QUEtiapine FUMARATE 25 MG TABLET 50 MG PO (21:16)
[2025-04-22 02:28] LABS: Creatinine, Random Urine 48 mg/dL (20-275); Total Prot/Creat ratio mg/mg 1.479 (0.024-0.184); Total Protein/Creatinine Ratio 1479 mg/g creat (24-184)
[2025-04-22 02:53] LABS: Protein, Total 5.4 g/dL (6.1-8.1)
[2025-04-22 03:57] VITALS: BP 154/80; PULSE 86; RESP 17; TEMP 36.5; O2SAT 98
[2025-04-22 05:09] LABS: Hemoglobin 9.2 g/dL (12.0-15.0); Mean Corpuscular HGB Conc 31.7 g/dl (32-36); Mean Corpuscular Hemoglobin 28.7 pg (26-34); Mean Corpuscular Volume 90.3 fl (80-100); Mean Platelet Volume 9.9 fl (7.4-10.4); Platelet Count Result 172 k/mm3 (150-375); Red Blood Count 3.21 M/mm3 (4.2-5.4); Red Cell Distribution Width 12.9 % (11.5-14.5); White Blood Count 7.7 K/mm3 (4.5-10.0)
[2025-04-22 05:23] LABS: Albumin Level 3.6 g/dL (3.5-5.1); Anion Gap 12 mmol/L (4-12); Blood Urea Nitrogen 45 mg/dL (7-17); Calcium 9.6 mg/dL (8.4-10.2); Carbon Dioxide 20 mmol/L (22-30); Chloride 108 mmol/L (98-107); Estimated CRCL calculation 13 ml/min; Estimated Glomerular Filt Rate 14; Glucose 135 mg/dL (65-110); Phosphorus 5.2 mg/dL (2.5-4.5); Potassium 3.5 mmol/L (3.4-5.0); Sodium 140 mmol/L (137-145)
[2025-04-22 05:35] LABS: Vitamin D 25 Hydroxy 16.8 ng/mL
[2025-04-22] MEDS: ACETAMINOPHEN 325 MG TABLET 650 MG PO (05:58)
[2025-04-22] MEDS: cloNIDine HCL 0.2 MG TABLET PO ×3 (05:58→21:20)
[2025-04-22 07:57] LABS: Glucose Point of Care 174 mg/dl (65-105)
[2025-04-22] MEDS: NIFEdipine 30 MG TAB.ER.24 PO (09:29)
[2025-04-22] MEDS: CHLORTHALIDONE 25 MG TABLET PO (09:29)
[2025-04-22] MEDS: hydrALAZINE HCL 25 MG TABLET BY MOUTH ×4 (09:29→21:20)
[2025-04-22] MEDS: LOSARTAN POTASSIUM 100 MG TABLET PO (09:29)
[2025-04-22] MEDS: ROSUVASTATIN 5 MG TABLET BY MOUTH (09:30)
[2025-04-22 09:32] VITALS: RESP 18; O2SAT 98
[2025-04-22] MEDS: TIMOLOL MALEATE XE 0.5% OPHTH GEL SOLN 5 ML BTL 1 DROP EACH EYE ×2 (09:32→21:21)
--- NOTE | 2025-04-22 11:11 | PM.PNNEP ---
Progress Note: A&P Assessment and Plan (1) Abnormal results of kidney function studies: Code(s): R94.4 - Abnormal results of kidney function studies Status: Acute Assessment and Plan: The patient has an elevated creatinine . No records yet from the primary care physician. The presumption is that this is CKD. The creatinine was 3.06 when she got here and now is 3.14. Basically within lab variation. Renal ultrasound is unremarkable CPK is okay Complements are normal. Other serology and immunofixation are pending UA showed white cells and culture shows Klebsiella pneumonia which is pansensitive. The patient is on ceftriaxone urine electrolytes and fractional excretion of urea showed non pre renal state. urine protein is 1640milligrams/gram of creatinine Most likely CKD is due to hypertension, diabetes, occult vascular disease ? We discussed the potential benefits of NICKY inhibitors and ARBs. Control BP This is high. At home the patient is on losartan clonidine hydralazine and nifedipine added chlorthalidone. We can leave her on her ARB since her potassium is okay and the creatinine has not risen since she got here. The LDL cholesterol should be less than 100. This is per PCP . She is on rosuvastatin. PTH is high. Check vitamin-D Patient doesn't overdo the protein by taste. The patient should avoid NSAIDs The patient should stay well hydrated. She would probably be a candidate for SGLT 2 inhibitors once she is an outpatient. Controlling Sugars per hospitalist discharge okay from the kidney standpoint any time (2) Tremor: Code(s): R25.1 - Tremor, unspecified Status: Acute Assessment and Plan: Improved. The patient is off the gabapentin (3) Acute UTI: Code(s): N39.0 - Urinary tract infection, site not specified Status: Acute Assessment and Plan: the patient has pyuria. Urine cultures Positive. await sensitivity The patient is on ceftriaxone (4) Type 2 diabetes mellitus with hyperglycemia: Qualifiers: Diabetes mellitus shelter insulin use: with dry heat room attendant use Qualified Code(s): E11.65 - Type 2 diabetes mellitus with hyperglycemia; Z79.4 - custodial (current) use of insulin Code(s): E11.65 - Type 2 diabetes mellitus with hyperglycemia Status: Acute Assessment and Plan: on sliding scale insulin. Hospitalists to manage this (5) Renal mass, left: Code(s): N28.89 - Other specified disorders of kidney and ureter Status: Acute Assessment and Plan: she had a CT scan in 2022 which showed benign cysts in the kidneys. ultrasound is unremarkable (6) Benign essential HTN: Code(s): I10 - Essential (primary) hypertension Status: Acute Assessment and Plan: will add chlorthalidone Subjective Date/time seen: 04/22/25 11:11 Interval history: the patient is alert and feels okay. No more tremors. Eating well. She is up and around she says Exam Narrative: WDWN in NAD skin no rash or subcu nodules head ncat lungs clear bilaterally cor reg no rub abd BS+ nontender and soft ext no edema. Objective Data Vital Signs Vital Signs: Vital Signs - 24 hr 04/21/25 14:00 04/21/25 15:31 04/21/25 20:00 Temperature 98.9 F Pulse Rate 77 88 Respiratory Rate 18 18 Blood Pressure 136/68 Pulse Oximetry 96 97 Oxygen Delivery Room Air Room Air Fraction of Inspired Oxygen 21 04/21/25 20:42 04/22/25 03:57 04/22/25 09:32 Temperature 98.5 F 97.7 F Pulse Rate 88 86 Respiratory Rate 18 17 18 Blood Pressure 145/80 H 154/80 H Pulse Oximetry 97 98 98 Oxygen Delivery Room Air Fraction of Inspired Oxygen Intake/Output Intake/Output: Intake & Output 04/19/25 04/20/25 04/21/25 04/22/25 23:59 23:59 23:59 23:59 Intake Total 1100 1150 1060 540 Output Total 650 300 Balance 450 1150 760 540 Meds/Results Medications: Active Medications Generic Name Dose Route Start Last Admin Trade Name Freq PRN Reason Stop Dose Admin Acetaminophen 650 mg 04/19/25 14:55 04/22/25 05:58 Acetaminophen 325 Mg Tablet PO 650 mg Q4H PRN Administration Mild Pain (1-3) or Fever Cephalexin HCl 500 mg 04/23/25 09:00 Cephalexin 500 Mg Capsule PO 04/27/25 21:01 Q12HR BECCA Chlorthalidone 25 mg 04/22/25 09:00 04/22/25 09:29 Chlorthalidone 25 Mg Tablet PO 25 mg DAILY BECCA Administration Clonidine HCl 0.2 mg 04/20/25 06:00 04/22/25 05:58 Clonidine Hcl 0.2 Mg Tablet PO 0.2 mg Q8HR BECCA Administration Hydralazine HCl 25 mg 04/20/25 09:00 04/22/25 09:29 Hydralazine Hcl 25 Mg Tablet BY MOUTH 25 mg QID BECCA Administration Insulin Aspart 3 - 6 units 04/19/25 17:00 04/22/25 08:00 Insulin Aspart (*Bkc) 100 Units/Ml SUB-Q Not Given TID[facility] Protocol Latanoprost 1 drop 04/19/25 23:20 04/21/25 21:16 Latanoprost 0.005% Op Soln 2.5 Ml Btl EACH EYE 1 drop QHS BECCA Administration Losartan Potassium 100 mg 04/20/25 09:00 04/22/25 09:29 Losartan Potassium 100 Mg Tablet PO 100 mg DAILY BECCA Administration Nifedipine 30 mg 04/20/25 09:00 04/22/25 09:29 Nifedipine 30 Mg Tab.Er.24 PO 30 mg DAILY BECCA Administration Ondansetron HCl 4 mg 04/19/25 14:55 Ondansetron Inj 4 Mg/2 Ml Vial IV PUSH Q4H PRN Nausea Quetiapine Fumarate 50 mg 04/19/25 23:25 04/21/25 21:16 Quetiapine Fumarate 25 Mg Tablet PO 50 mg QHS BECCA Administration Rosuvastatin Calcium 5 mg 04/20/25 09:00 04/22/25 09:30 Rosuvastatin 5 Mg Tablet BY MOUTH 5 mg DAILY BECCA Administration Timolol Maleate 1 drop 04/19/25 23:20 04/22/25 09:32 Timolol Maleate Xe 0.5% Ophth Gel Soln 5 Ml Btl EACH EYE 1 drop Q12HR BECCA Administration Radiology Results: ITS Impressions Renal Ultrasound 04/21/25 06:46 Impression: Unremarkable ultrasound of the kidneys and urinary bladder. Labs Labs: Laboratory Results - last 24 hr 04/20/25 04/20/25 04/21/25 15:20 15:38 12:33 WBC RBC Hgb Hct MCV MCH MCHC RDW Plt Count MPV Sodium Potassium Chloride Carbon Dioxide Anion Gap BUN Creatinine Estim Creat Clear Calc Estimated GFR Glucose POC Capillary Glucose 140 H Calcium Phosphorus Magnesium Total Protein 5.4 L Albumin Vitamin D 25-Hydroxy Ur Random Creatinine 48 U Random Total Protein 71 H Protein/Creatinin Ratio 1479 H Tot Complement (CH50) 59 04/21/25 04/21/2525 16:50 20:28 04:56 WBC 7.7 RBC 3.21 L Hgb 9.2 L Hct 29.0 L MCV 90.3 MCH 28.7 MCHC 31.7 L RDW 12.9 Plt Count 172 MPV 9.9 Sodium 140 Potassium 3.5 Chloride 108 H Carbon Dioxide 20 L Anion Gap 12 BUN 45 H Creatinine 3.14 H Estim Creat Clear Calc 13 Estimated GFR 14 L Glucose 135 H POC Capillary Glucose 166 H 244 H Calcium 9.6 Phosphorus 5.2 H Magnesium 2.0 Total Protein Albumin 3.6 Vitamin D 25-Hydroxy 16.8 Ur Random Creatinine U Random Total Protein Protein/Creatinin Ratio Tot Complement (CH50) 04/22/25 07:44 WBC RBC Hgb Hct MCV MCH MCHC RDW Plt Count MPV Sodium Potassium Chloride Carbon Dioxide Anion Gap BUN Creatinine Estim Creat Clear Calc Estimated GFR Glucose POC Capillary Glucose 174 H Calcium Phosphorus Magnesium Total Protein Albumin Vitamin D 25-Hydroxy Ur Random Creatinine U Random Total Protein Protein/Creatinin Ratio Tot Complement (CH50)
[2025-04-22 12:00] LABS: Glucose Point of Care 302 mg/dl (65-105)
[2025-04-22] MEDS: INSULIN ASPART (*BKC) 100 UNITS/ML SUB-Q (12:18)
--- NOTE | 2025-04-22 13:09 | P.PNIM_ITS ---
Progress Note: A&P Assessment and Plan (1) Tremor: Code(s): R25.1 - Tremor, unspecified Status: Acute Assessment and Plan: Tremors better. [place] related to recently started gabapentin and/or UTI. Gabapentin stopped and she is feeling better. Continue to monitor. PT/OT (2) Acute kidney injury superimposed on CKD: Code(s): N17.9 - Acute kidney failure, unspecified; N18.9 - Chronic kidney disease, unspecified Status: Acute Assessment and Plan: Patient with LARISA with Cr 3.06 on admission. Baseline was 1.17 in September 2024 and 1.88 on 03/03/25. Was on Lasix which was held. Renal US was normal but did show distended bladder. Urine studies noted. Urine eos negative. TCk normal. C3/C4 normal. Urine prot/Cr ration 1.6gm. iPTH 187. UPEP/SPEP pending. Repeat Cr unchanged at 3.12. Nephrology following and appreciate their help. renal US negative. Consider renal bx (3) Gabapentin adverse reaction: Qualifiers: Encounter type: initial encounter Qualified Code(s): T42.6X5A - Adverse effect of other antiepileptic and sedative-hypnotic drugs, initial encounter Code(s): T42.6X5A - Adverse effect of other antiepileptic and sedative-hypnotic drugs, initial encounter Status: Acute Assessment and Plan: As above. (4) Abnormal urinalysis: Code(s): R82.90 - Unspecified abnormal findings in urine Status: Acute Assessment and Plan: UA is concerning for UTI. UCx positive Rocephin started. UCx growing Kleb pansenstiive switch to oral cephalexin (5) Benign essential HTN: Code(s): I10 - Essential (primary) hypertension Status: Acute Assessment and Plan: Patient's blood pressure was reviewed Will continue current medications. Continue to follow. Plan DVT Prophylaxis - SCDs Code status - DNR Subjective Date/time seen: 04/22/25 13:09 Interval history: no overnight events, feels well. no more shakes. labs reviewed. Review of Systems Review of Systems: 12 systems were reviewed with pertinent positives and negatives per HPI. Except as documented in the HPI, all other systems were reviewed and are negative. Exam Narrative: Gen - NARD Chest - CTA bilaterally, nml RR CV - RRR S1/S2 with 2/6 systolic murmur Abd - Soft, NT/ND, Positive BS Ext - No pedal edema. Neuro - Alert and appropriate. Psych - Nml mood and affect Skin - Warm and dry Objective Data Vital Signs Vital Signs: Vital Signs - 24 hr 04/21/25 14:00 04/21/25 15:31 04/21/25 20:00 Temperature 98.9 F Pulse Rate 77 88 Respiratory Rate 18 18 Blood Pressure 136/68 Pulse Oximetry 96 97 Oxygen Delivery Room Air Room Air Fraction of Inspired Oxygen 21 04/21/25 20:42 04/22/25 03:57 04/22/25 09:32 Temperature 98.5 F 97.7 F Pulse Rate 88 86 Respiratory Rate 18 17 18 Blood Pressure 145/80 H 154/80 H Pulse Oximetry 97 98 98 Oxygen Delivery Room Air Fraction of Inspired Oxygen 04/22/25 10:44 Temperature Pulse Rate Respiratory Rate Blood Pressure Pulse Oximetry Oxygen Delivery Room Air Fraction of Inspired Oxygen Intake/Output Intake/Output: Intake & Output 04/19/25 04/20/25 04/21/25 04/22/25 23:59 23:59 23:59 23:59 Intake Total 1100 1150 1060 540 Output Total 650 300 Balance 450 1150 760 540 Meds/Results Medications: Active Medications Generic Name Dose Route Start Last Admin Trade Name Freq PRN Reason Stop Dose Admin Acetaminophen 650 mg 04/19/25 14:55 04/22/25 05:58 Acetaminophen 325 Mg Tablet PO 650 mg Q4H PRN Administration Mild Pain (1-3) or Fever Cephalexin HCl 500 mg 04/23/25 09:00 Cephalexin 500 Mg Capsule PO 04/27/25 21:01 Q12HR BECCA Chlorthalidone 25 mg 04/22/25 09:00 04/22/25 09:29 Chlorthalidone 25 Mg Tablet PO 25 mg DAILY BECCA Administration Clonidine HCl 0.2 mg 04/20/25 06:00 04/22/25 05:58 Clonidine Hcl 0.2 Mg Tablet PO 0.2 mg Q8HR BECCA Administration Hydralazine HCl 25 mg 04/20/25 09:00 04/22/25 12:18 Hydralazine Hcl 25 Mg Tablet BY MOUTH 25 mg QID BECCA Administration Insulin Aspart 3 - 6 units 04/19/25 17:00 04/22/25 12:18 Insulin Aspart (*Bkc) 100 Units/Ml SUB-Q 5 units TIDWM BECCA Administration Protocol Latanoprost 1 drop 04/19/25 23:20 04/21/25 21:16 Latanoprost 0.005% Op Soln 2.5 Ml Btl EACH EYE 1 drop QHS BECCA Administration Losartan Potassium 100 mg 04/20/25 09:00 04/22/25 09:29 Losartan Potassium 100 Mg Tablet PO 100 mg DAILY BECCA Administration Nifedipine 30 mg 04/20/25 09:00 04/22/25 09:29 Nifedipine 30 Mg Tab.Er.24 PO 30 mg DAILY BECCA Administration Ondansetron HCl 4 mg 04/19/25 14:55 Ondansetron Inj 4 Mg/2 Ml Vial IV PUSH Q4H PRN Nausea Quetiapine Fumarate 50 mg 04/19/25 23:25 04/21/25 21:16 Quetiapine Fumarate 25 Mg Tablet PO 50 mg QHS BECCA Administration Rosuvastatin Calcium 5 mg 04/20/25 09:00 04/22/25 09:30 Rosuvastatin 5 Mg Tablet BY MOUTH 5 mg DAILY BECCA Administration Timolol Maleate 1 drop 04/19/25 23:20 04/22/25 09:32 Timolol Maleate Xe 0.5% Ophth Gel Soln 5 Ml Btl EACH EYE 1 drop Q12HR BECCA Administration Radiology Results: ITS Impressions Renal Ultrasound 04/21/25 06:46 Impression: Unremarkable ultrasound of the kidneys and urinary bladder. Labs Labs: Laboratory Results - last 24 hr 04/20/25 04/20/25 04/21/25 15:20 15:38 16:50 WBC RBC Hgb Hct MCV MCH MCHC RDW Plt Count MPV Sodium Potassium Chloride Carbon Dioxide Anion Gap BUN Creatinine Estim Creat Clear Calc Estimated GFR Glucose POC Capillary Glucose 166 H Calcium Phosphorus Magnesium Total Protein 5.4 L Albumin Vitamin D 25-Hydroxy Ur Random Creatinine 48 U Random Total Protein 71 H Protein/Creatinin Ratio 1479 H Tot Complement (CH50) 59 04/21/25 04/22/25 04/22/25 20:28 04:56 07:44 WBC 7.7 RBC 3.21 L Hgb 9.2 L Hct 29.0 L MCV 90.3 MCH 28.7 MCHC 31.7 L RDW 12.9 Plt Count 172 MPV 9.9 Sodium 140 Potassium 3.5 Chloride 108 H Carbon Dioxide 20 L Anion Gap 12 BUN 45 H Creatinine 3.14 H Estim Creat Clear Calc 13 Estimated GFR 14 L Glucose 135 H POC Capillary Glucose 244 H 174 H Calcium 9.6 Phosphorus 5.2 H Magnesium 2.0 Total Protein Albumin 3.6 Vitamin D 25-Hydroxy 16.8 Ur Random Creatinine U Random Total Protein Protein/Creatinin Ratio Tot Complement (CH50) 04/22/25 11:50 WBC RBC Hgb Hct MCV MCH MCHC RDW Plt Count MPV Sodium Potassium Chloride Carbon Dioxide Anion Gap BUN Creatinine Estim Creat Clear Calc Estimated GFR Glucose POC Capillary Glucose 302 H Calcium Phosphorus Magnesium Total Protein Albumin Vitamin D 25-Hydroxy Ur Random Creatinine U Random Total Protein Protein/Creatinin Ratio Tot Complement (CH50)
[2025-04-22 14:00] VITALS: BP 127/63; PULSE 65; RESP 18; TEMP 36.6; O2SAT 98
[2025-04-22 15:43] LABS: Kappa\\Lambda Light Chains 1.58 (0.26-1.65); Lambda Light Chain 25.6 mg/L (5.7-26.3)
[2025-04-22 17:00] LABS: Glucose Point of Care 129 mg/dl (65-105)
[2025-04-22 18:13] LABS: Albumin 3.1 g/dL (3.8-4.8); Alpha 1 Globulin 0.4 g/dL (0.2-0.3); Alpha 2 Globulin 0.8 g/dL (0.5-0.9); Beta 1 Globulin 0.3 g/dL (0.4-0.6); Gamma Globulin 0.5 g/dL (0.8-1.7)
[2025-04-22 20:22] VITALS: BP 129/63; PULSE 81; RESP 17; TEMP 36.9; O2SAT 96
[2025-04-22 20:26] LABS: Glucose Point of Care 138 mg/dl (65-105)
[2025-04-22 21:00] VITALS: O2SAT 99
[2025-04-22] MEDS: QUEtiapine FUMARATE 25 MG TABLET 50 MG PO (21:20)
[2025-04-22] MEDS: LATANOPROST 0.005% OP SOLN 2.5 ML BTL 1 DROP EACH EYE (21:21)
[2025-04-23 03:43] LABS: Creat 24 Hr 0.69 g/24 h (0.50-2.15); Pro/Creat Ratio 1377 mg/g creat (<150); Pro/Creat Ratio mg/mg 1.377 (<0.150); Protein,total, 24 Hr Ur 949 mg/24 h (<150)
[2025-04-23 04:29] VITALS: BP 155/77; PULSE 89; RESP 17; TEMP 36.8; O2SAT 98
[2025-04-23] MEDS: cloNIDine HCL 0.2 MG TABLET PO ×2 (05:35→16:03)
[2025-04-23 06:18] LABS: Basophils Percent Auto 0.3 % (0.2-1.2); Eosinophils Absolute Auto 0.2 K/mm3 (0-0.3); Eosinophils Percent Auto 2.9 % (0-4.4); Hemoglobin 9.5 g/dL (12.0-15.0); Immature Granulocyte Absolute 0.04 K/mm3 (0.00-0.031); Immature Granulocyte Percent A 0.5 % (0-0.5); Lymphocytes Absolute Auto 1.12 K/mm3 (0.9-3.2); Lymphocytes Percent Auto 14.6 % (18.3-44.2); Mean Corpuscular HGB Conc 31.7 g/dl (32-36); Mean Corpuscular Hemoglobin 28.8 pg (26-34); Mean Corpuscular Volume 90.9 fl (80-100); Mean Platelet Volume 10.1 fl (7.4-10.4); Monocytes Absolute Auto 0.6 K/mm3 (0.1-0.6); Monocytes Percent Auto 7.8 % (2.6-8.5); Neutrophils Absolute Auto 5.7 K/mm3 (1.3-6.7); Neutrophils Percent Auto 73.9 % (45.5-73.1); Platelet Count Result 208 k/mm3 (150-375); White Blood Count 7.7 K/mm3 (4.5-10.0)
[2025-04-23 06:38] LABS: Alanine Aminotransferase 13 U/L (6-35); Albumin Level 3.6 g/dL (3.5-5.1); Alkaline Phosphatase 66 U/L (38-126); Anion Gap 12 mmol/L (4-12); Aspartate Amino Transferase 19 U/L (14-36); Bilirubin,Total 0.4 mg/dL (0.2-1.3); Blood Urea Nitrogen 45 mg/dL (7-17); Calcium 9.9 mg/dL (8.4-10.2); Carbon Dioxide 21 mmol/L (22-30); Chloride 107 mmol/L (98-107); Estimated CRCL calculation 13 ml/min; Estimated Glomerular Filt Rate 14; Glucose 141 mg/dL (65-110); Magnesium 1.8 mg/dL (1.6-2.3); Potassium 3.6 mmol/L (3.4-5.0); Sodium 140 mmol/L (137-145); Total Protein 6.4 g/dL (6.3-8.2)
[2025-04-23 08:37] LABS: Glucose Point of Care 142 mg/dl (65-105)
[2025-04-23] MEDS: CEPHALEXIN 500 MG CAPSULE PO (08:40)
[2025-04-23] MEDS: LOSARTAN POTASSIUM 100 MG TABLET PO (08:40)
[2025-04-23] MEDS: NIFEdipine 30 MG TAB.ER.24 PO ×2 (08:40→11:30)
[2025-04-23] MEDS: hydrALAZINE HCL 25 MG TABLET BY MOUTH (08:40)
[2025-04-23] MEDS: ROSUVASTATIN 5 MG TABLET BY MOUTH (08:41)
[2025-04-23] MEDS: CHLORTHALIDONE 25 MG TABLET PO (08:41)
[2025-04-23] MEDS: TIMOLOL MALEATE XE 0.5% OPHTH GEL SOLN 5 ML BTL 1 DROP EACH EYE (08:44)
--- NOTE | 2025-04-23 10:51 | P.PNNP_ITS ---
Progress Note: A&P Assessment and Plan (1) Abnormal results of kidney function studies: Code(s): R94.4 - Abnormal results of kidney function studies Status: Acute Assessment and Plan: The patient has an elevated creatinine . No records yet from the primary care physician. The presumption is that this is CKD. The creatinine was 3.06 when she got here and now is 3.17. Basically within lab variation. Renal ultrasound is unremarkable CPK is okay Complements are normal. Other serology and immunofixation are pending UA showed white cells and culture shows Klebsiella pneumonia which is pansens itive. The patient is on ceftriaxone urine electrolytes and fractional excretion of urea showed non pre renal state. urine protein is 1640milligrams/gram of creatinine Most likely CKD is due to hypertension, diabetes, occult vascular disease evaluation for CKD is mostly pending. She will follow-up in the office after the evaluative labs come back ? We discussed the potential benefits of NICKY inhibitors and ARBs. Control BP This is better The LDL cholesterol should be less than 100. This is per PCP . She is on rosuvastatin. PTH is high. await vitamin-D Patient doesn't overdo the protein by taste. The patient should avoid NSAIDs The patient should stay well hydrated. She would probably be a candidate for SGLT 2 inhibitors once she is an outpatient. Controlling Sugars per hospitalist discharge okay from the kidney standpoint any time (2) Tremor: Code(s): R25.1 - Tremor, unspecified Status: Acute Assessment and Plan: Improved. The patient is off the gabapentin (3) Acute UTI: Code(s): N39.0 - Urinary tract infection, site not specified Status: Acute Assessment and Plan: the patient has pyuria. Urine cultures Positive. await sensitivity The patient is on ceftriaxone (4) Type 2 diabetes mellitus with hyperglycemia: Qualifiers: Diabetes mellitus director long term care insulin use: with care home use Qualified Code(s): E11.65 - Type 2 diabetes mellitus with hyperglycemia; Z79.4 - superintendent container terminal (current) use of insulin Code(s): E11.65 - Type 2 diabetes mellitus with hyperglycemia Status: Acute Assessment and Plan: on sliding scale insulin. Hospitalists to manage this (5) Renal mass, left: Code(s): N28.89 - Other specified disorders of kidney and ureter Status: Acute Assessment and Plan: she had a CT scan in 2022 which showed benign cysts in the kidneys. ultrasound is unremarkable (6) Benign essential HTN: Code(s): I10 - Essential (primary) hypertension Status: Acute Assessment and Plan: will add chlorthalidone Subjective Date/time seen: 04/23/25 10:51 Interval history: Late entry Patient was seen Saturday the in the morning. patient is feeling okay. She is up in a chair. Exam Narrative: WDWN in NAD skin no rash or subcu nodules head ncat lungs clear to auscultation cor reg no rub abd BS+ nontender and soft ext no edema or cyanosis Objective Data Vital Signs Vital Signs: Vital Signs - 24 hr 04/23/25 12:00 04/23/25 14:00 Temperature 97.7 F Pulse Rate 70 Respiratory Rate 16 Blood Pressure 113/62 Pulse Oximetry 98 Oxygen Delivery Room Air Intake/Output Intake/Output: Intake & Output 04/21/25 04/22/25 04/23/25 04/24/25 23:59 23:59 23:59 23:59 Intake Total 1060 780 780 Output Total 300 Balance 760 780 780 Meds/Results Radiology Results: ITS Impressions Renal Ultrasound 04/21/25 06:46 Impression: Unremarkable ultrasound of the kidneys and urinary bladder. Labs Labs: Laboratory Results - last 24 hr 04/21/25 04/23/25 04/23/25 16:41 11:45 16:40 POC Capillary Glucose 247 H 144 H Ur CRISTOFER Interpret 24 hr
[2025-04-23 12:14] LABS: Glucose Point of Care 247 mg/dl (65-105)
[2025-04-23] MEDS: INSULIN ASPART (*BKC) 100 UNITS/ML SUB-Q (12:26)
[2025-04-23 14:00] VITALS: BP 113/62; PULSE 70; RESP 16; TEMP 36.5; O2SAT 98
--- NOTE | 2025-04-23 14:51 | P.DS_ITS ---
DS: Admitting Diagnosis Discharge Date 04/23/2025 Admitting Diagnosis Adverse reaction to gabapentin/ UTI/ acute on chronic renal failure DS: Discharge Diagnosis Discharge Diagnosis (1) Tremor: Code(s): R25.1 - Tremor, unspecified Status: Acute (2) Acute kidney injury superimposed on CKD: Code(s): N17.9 - Acute kidney failure, unspecified; N18.9 - Chronic kidney disease, unspecified Status: Acute (3) Gabapentin adverse reaction: Qualifiers: Encounter type: initial encounter Qualified Code(s): T42.6X5A - Adverse effect of other antiepileptic and sedative-hypnotic drugs, initial encounter Code(s): T42.6X5A - Adverse effect of other antiepileptic and sedative-hypnotic drugs, initial encounter Status: Acute (4) Abnormal urinalysis: Code(s): R82.90 - Unspecified abnormal findings in urine Status: Acute (5) Benign essential HTN: Code(s): I10 - Essential (primary) hypertension Status: Acute DS: Summary Hospital Course Reason for hospitalization: Adverse reaction to gabapentin/ UTI/ acute on chronic renal failure Hospital Course: Admission: 84-year-old female with a past medical history of chronic kidney disease, aortic stenosis, essential hypertension, chronic lower extremity edema on Lasix, diabetic peripheral neuropathy and glaucoma who presented to the ER with tremors and grinding of her teeth a she reports that been continuous for the last 4 days. She was recently started on gabapentin for her peripheral neuropathy in her right lower extremity. She was started on 100 mg q.8 hours. She also was recently started on nifedipine for uncontrolled hypertension. She reports that she was initially having shaking of all 4 extremities that was in her min but over the last 24 hours it had become constant. She was also having some chattering of her teeth and grinding of her teeth. She reported that it did become so bad that she was weak in could not stand with her walker. She denies any recent fevers or chills. She denies any dysuria, hematuria or change in urinary frequency. She denies any shortness of breath beyond her usual. She has not had any changes in her lower extremity swelling. In the ER the patient did have an episode of tremors that lasted for few seconds but resolved. Patient did not have any episodes of tremors while I was evaluating the patient. Labs in the ER did demonstrate creatinine of 3. Patient has known chronic kidney disease at least stage III. There is no recent values available for comparison but patient is aware that her kidney function is not good. She denies any urinary incontinence or changes in bowel habits. UA in the ER was suggestive of possible UTI but patient did not have white count and was afebrile. She did receive 1 a fluid at 150 mL an hour. She also received 1 dose of Rocephin 2 g Hospital Course: patient was admitted to the medical unit for further evaluation and treatment of adverse reaction to her gabapentin, UTI and acute on chronic renal failure with a consult to Neurology for further evaluation. patient had overall improvement to tremors after stopping gabapentin and receiving IV fluids. Patient with LARISA with Cr 3.06 on admission. Baseline was 1.17 in September 2024 and 1.88 on 03/03/25 Was on Lasix which was held, Renal US was normal but did show distended bladder. Urine studies noted. Urine eos negative. TCk normal. C3/C4 normal. Urine prot/Cr ration 1.6gm. iPTH 187 repeat creatinine is remained unchanged. patient was seen by Nephrology reports CKD likely secondary to her hypertension, diabetes and vascular disease they recommended a benefit from Jaskaran or Arb inhibitor and recommended an SGLT2 inhibitor outpatient with follow-up with primary for sugar control. patient was also found to have urinary tract infection which came back Klebsiella pansensitive she was initially receiving IV Rocephin and was switched to oral Keflex at discharge. patient with overall improvement to symptoms no further tremors noted at time assessment prior to discharge patient felt as though she was back to baseline. patient was then discharged back to home. Status at Discharge Functional status at discharge: uses cane/walker Time Spent with Patient Time attestation: Total time spent providing and/or coordinating discharge services: Time spent: Greater than 30 minutes Exam Narrative: Gen - NARD Chest - CTA bilaterally, nml RR CV - RRR S1/S2 with 2/6 systolic murmur Abd - Soft, NT/ND, Positive BS Ext - No pedal edema. Neuro - Alert and appropriate. Psych - Nml mood and affect Skin - Warm and dry DS: Data Data Completed and Pending Labs on day of discharge: Labs from last 24 hours 04/23/25 04/23/25 04/23/25 11:45 07:32 05:55 WBC 7.7 RBC 3.30 L Hgb 9.5 L Hct 30.0 L MCV 90.9 MCH 28.8 MCHC 31.7 L RDW 13.0 Plt Count 208 MPV 10.1 Immature Gran % (Auto) 0.5 Neut % (Auto) 73.9 H Lymph % (Auto) 14.6 L [place] % (Auto) 7.8 Eos % (Auto) 2.9 Baso % (Auto) 0.3 Lymph # (Auto) 1.12 [place] # (Auto) 0.6 Eos # (Auto) 0.2 Baso # (Auto) 0.0 Abs Immat Gran (auto) 0.04 H Absolute Neuts (auto) 5.7 Absolute Nucleated RBC 0.000 Nucleated RBC % 0.0 Sodium 140 Potassium 3.6 Chloride 107 Carbon Dioxide 21 L Anion Gap 12 BUN 45 H Creatinine 3.17 H Estim Creat Clear Calc 13 Estimated GFR 14 L Glucose 141 H POC Capillary Glucose 247 H 142 H Calcium 9.9 Magnesium 1.8 Total Bilirubin 0.4 AST 19 ALT 13 Alkaline Phosphatase 66 Total Protein 6.4 Albumin 3.6 Vfhmk-9-Qmsvgqsks Vcxqs-4-Dzgnducid Lbgm-5-Grcrhiyc Aaaa-0-U[place]ogi Gamma Globulins PEP Interpretation U Protein 24 Hr Presump Ur CRISTOFER Interpret 24 hr FRANCISCO Screen [place]/Lambda Ratio Free [place] Light Chains Free Lambda Light Chain 04/22/25 04/22/25 04/21/25 20:20 16:43 16:41 WBC RBC Hgb Hct MCV MCH MCHC RDW Plt Count MPV Immature Gran % (Auto) Neut % (Auto) Lymph % (Auto) [place] % (Auto) Eos % (Auto) Baso % (Auto) Lymph # (Auto) [place] # (Auto) Eos # (Auto) Baso # (Auto) Abs Immat Gran (auto) Absolute Neuts (auto) Absolute Nucleated RBC Nucleated RBC % Sodium Potassium Chloride Carbon Dioxide Anion Gap BUN Creatinine Estim Creat Clear Calc Estimated GFR Glucose POC Capillary Glucose 138 H 129 H Calcium Magnesium Total Bilirubin AST ALT Alkaline Phosphatase Total Protein Albumin Kvgkw-8-Dwmrunean Amvuz-3-Lctjkccnq Ptpa-1-Iiyhsqht Wcxc-4-Trojkpcp Gamma Globulins PEP Interpretation U Protein 24 Hr Presump 949 H Ur CRISTOFER Interpret 24 hr [place]ANCISCO Screen [place]/Lambda Ratio Free [place] Light Chains Free Lambda Light Chain 04/20/25 15:20 WBC RBC Hgb Hct MCV MCH MCHC RDW Plt Count MPV Immature Gran % (Auto) Neut % (Auto) Lymph % (Auto) [place] % (Auto) Eos % (Auto) Baso % (Auto) Lymph # (Auto) [place] # (Auto) Eos # (Auto) Baso # (Auto) Abs Immat Gran (auto) Absolute Neuts (auto) Absolute Nucleated RBC Nucleated RBC % Sodium Potassium Chloride Carbon Dioxide Anion Gap BUN Creatinine Estim Creat Clear Calc Estimated GFR Glucose POC Capillary Glucose Calcium Magnesium Total Bilirubin AST ALT Alkaline Phosphatase Total Protein Albumin 3.1 L Vlvul-1-Edaddsrqv 0.4 H Dtxln-1-Kaekmxiss 0.8 Itgy-8-Fwrmxixa 0.3 L Xdaf-5-Yqsysums 0.3 Gamma Globulins 0.5 L PEP Interpretation See note U Protein 24 Hr Presump Ur CRISTOFER Interpret 24 hr [place] Screen Negative [place]/Lambda Ratio 1.58 Free [place] Light Chains 40.5 H Free Lambda Light Chain 25.6 Imaging Radiologist's impression: Radiology Results: ITS Impressions Renal Ultrasound 04/21/25 06:46 Impression: Unremarkable ultrasound of the kidneys and urinary bladder. Discharge Plan Discharge Attending physician on discharge: Bro Waggoner Consulting providers: Stephen Ramesh; Kelsey Bradley Discharging Clinician: Kelsey Bradley Anticipated Discharge Date/Time: 04/23/25 14:41 Patient Disposition: Home Activity: may shower and as tolerated Diet: heart healthy and diabetic Discharge Instructions: 1). [facility] to call patient set up time for initial visit. ([phone]) RN please fax discharge paper work to [phone] 2). Chronic kidney disease * Please follow-up with nephrology outpatient for close monitoring * I have stopped your Losartan due to worsening kidney function * Follow-labs and primary care follow-up as scheduled 3). Hypertension * I have changed your blood pressure medications as follows: Nifedipine 60 mg daily from 30mg daily, hydralazine 50mg three times a day from 25mg four times daily and discontinued your Losartan * Please keep a log of your blood pressures and bring with you to your follow-up appointment with your primary as well as the update medication list. 4). UTI * I have prescribed Kelfex for your UTI please complete therapy as indicated How can you care for yourself at home? ? Keep track of any new symptoms or changes in your symptoms. ? Rest until you feel better. ? Be safe with medicines. Take your medicines exactly as prescribed. Call your doctor if you think you are having a problem with your medicine. ? Do not drive after taking a prescription pain medicine. ? Ensure to follow-up with primary care physician as indicated and provide updated medication list provided to you at discharge. When should you call for help? Call 911 anytime you think you may need emergency care. For example, call if: ? You passed out (lost consciousness). Call your doctor now or seek immediate medical care if: ? You have new symptoms like fever, difficulty breathing, Chest pain, vomiting, or rash. ? You have new or different pain. ? You are confused and are having trouble thinking clearly. ? Your symptoms are getting worse. Watch closely for changes in your health, and be sure to contact your doctor if: ? You do not get better as expected. Patient Instructions: Antibiotic Form, Chronic Kidney Disease (DC), Chronic Hypertension (DC), Diabetic Kidney Disease (DC), Urinary Tract Infection in Older Adults (DC) Patient Language: Ukrainian Stand Alone Forms: General Discharge Information Follow-up/Referrals: Sami Cash MD [Primary Care Provider] - Keep Reg. Scheduled Appt. Stephen Ramesh MD [Physician] - Call for Appointment Discharge Medications: New chlorthalidone 25 mg Tablet 25 mg PO DAILY Qty: 30 0RF cephalexin 500 mg Capsule 500 mg PO Q12HR Qty: 9 0RF hydralazine 50 mg Tablet 50 mg BYMOUTH TID Qty: 90 0RF nifedipine [Procardia XL] 60 mg tablet extended release 24hr 60 mg PO DAILY Qty: 30 0RF Continued quetiapine 25 mg tablet 50 mg PO QHS Qty: 60 3RF acetaminophen 500 mg Tablet 1,000 mg PO QID PRN (Reason: Pain) latanoprost 0.005 % drops See Rx Instructions .ROUTE .COMPLEX Qty: 7.5 0RF Dose Instruction: INSTILL 1 DROP IN BOTH EYES EVERY DAY AT BEDTIME Rx Instructions: INSTILL 1 DROP IN BOTH EYES EVERY DAY AT BEDTIME timolol maleate 0.5 % gel forming solution See Rx Instructions .ROUTE .COMPLEX Qty: 20 0RF Dose Instruction: INSTILL 1 DROP IN BOTH EYES EVERY 12 HOURS Rx Instructions: INSTILL 1 DROP IN BOTH EYES EVERY 12 HOURS rosuvastatin 5 mg tablet See Rx Instructions .ROUTE .COMPLEX Qty: 90 3RF Dose Instruction: TAKE 1 TABLET BY MOUTH DAILY Rx Instructions: TAKE 1 TABLET BY MOUTH DAILY clonidine HCl 0.1 mg tablet See Rx Instructions .ROUTE .COMPLEX Qty: 540 0RF Dose Instruction: TAKE 2 TABLETS BY MOUTH THREE TIMES DAILY Rx Instructions: TAKE 2 TABLETS BY MOUTH THREE TIMES DAILY nystatin 100,000 unit/gram powder 1 applic topical BID Qty: 15 1RF metformin 1,000 mg tablet 1,000 mg PO BID Qty: 180 2RF gabapentin 100 mg capsule 100 mg PO TID Qty: 90 1RF Changed furosemide 40 mg tablet 20 mg PO QAM Qty: 30 5RF Discontinued hydralazine 25 mg tablet See Rx Instructions .ROUTE .COMPLEX Qty: 360 1RF Dose Instruction: TAKE 1 TABLET BY MOUTH FOUR TIMES DAILY Rx Instructions: TAKE 1 TABLET BY MOUTH FOUR TIMES DAILY nifedipine 30 mg tablet extended release 30 mg PO DAILY Qty: 30 0RF losartan 100 mg tablet 100 mg PO DAILY Qty: 90 0RF Date of admission: 04/19/25 14:55 Primary Care Provider: Sami Cash Admitting Provider: Lucero Liang Attending physician on admission: Lucero Liang Condition: Stable Quality VTE Prophylaxis VTE prophylaxis: mechanical ordered (SCDs) -Patient's previous records reviewed on admission -ER notes reviewed in detail on admission -discussed all findings and current treatment plan with patient/Family/POA -Consultations reviewed for recommendations -Patient's disposition for safe discharge discussed with returned case inspector Dictation performed by [employer] Voice[employer] direct speech recognition software, therefore production assembly operator variants and typographical errors may occur. Hospitalist MIPS Heart Failure (Exclusion) Patient has history of Heart Transplant or Left Ventricular Assistive Device?: No IF YES, STOP HERE Heart Failure (Qualifier) Patient has current or prior documentation of LVEF less than or equal to 40%, or mod/servere depressed LVSF?: No IF NO, STOP HERE
[2025-04-23] MEDS: hydrALAZINE HCL 50 MG TABLET BY MOUTH (16:03)
[2025-04-23 16:47] LABS: Glucose Point of Care 144 mg/dl (65-105)
[2025-04-24 16:54] LABS: Immunofixation, Serum Normal pattern.
[2025-04-28 10:08] LABS: Albumin 34 %
== END 2025-04-23 17:40 | disposition home health service (06) | DRG 690 ==
LOC: ANHED 14:18 → ANH2MED 17:40
PROVIDERS: Internal Medicine; Internal Medicine Nephrology; Admitting Provider Internal Medicine; Emergency Provider Family Medicine; PCP Family Medicine; Visit Provider Nurse Practitioner Family
DX: N39.0 Urinary tract infection, site not specified (principal); N17.9 Acute kidney failure, unspecified; B96.1 Klebsiella pneumoniae [K. pneumoniae] as the cause of diseases classified elsewhere; R25.1 Tremor, unspecified; T42.6X5A Adverse effect of other antiepileptic and sedative-hypnotic drugs, initial encounter; E11.42 Type 2 diabetes mellitus with diabetic polyneuropathy; H40.9 Unspecified glaucoma; I35.0 Nonrheumatic aortic (valve) stenosis; E11.22 Type 2 diabetes mellitus with diabetic chronic kidney disease; I12.9 Hypertensive chronic kidney disease with stage 1 through stage 4 chronic kidney disease, or unspecified chronic kidney disease; N18.30 Chronic kidney disease, stage 3 unspecified; E11.65 Type 2 diabetes mellitus with hyperglycemia; E78.5 Hyperlipidemia, unspecified; N28.89 Other specified disorders of kidney and ureter; M47.816 Spondylosis without myelopathy or radiculopathy, lumbar region; M17.9 Osteoarthritis of knee, unspecified; R60.0 Localized edema; Z66 Do not resuscitate; Z79.84 Long term (current) use of oral hypoglycemic drugs; Z79.899 Other long term (current) drug therapy; Z96.641 Presence of right artificial hip joint; Z96.1 Presence of intraocular lens; Z98.42 Cataract extraction status, left eye; Z98.41 Cataract extraction status, right eye
CPT/HCPCS: 36415; 76775; 80048; 80053; 80069; 81001; 82306; 82550; 82570; 82948; 83605; 83735; 83883; 83970; 84155; 84156; 84165; 84166; 84300; 84540; 85025; 85027; 85652; 85999; 86038; 86039; 86140; 86160; 86162; 86334; 86335; 87086; 87186; 96361; 96365; 96375; 97110; 97161; 97166; 97530; 97535; 99285; A9270; J0696; J1815; J3475; J7030

== ENCOUNTER 2025-10-08 10:00 | Outpatient (CLI) | payer MEDICARE, SELFPAY ==
--- OUTSIDE RECORDS SUMMARY | 2025-10-08 10:05 | XMS_ITS | Clinical Summary ---
Author Organization [facility] Address [address] [place] [id number] Care Team Providers Care Latin Professor Name Role Phone Elizabeth Zamora MD Primary [...] of Treatment Not on file Insurance MEDICARE [facility] Care Teams Latin Professor Relationship Specialty Start Date End Date Elizabeth Zamora MD [address] [facility] [address] [place] [address] PCP - General Family Medicine 04/09/18
--- NOTE | 2025-10-08 10:18 | ECHO_ITS ---
Patient Info Name: Diana Haynes Age: 85 years : 1940 Gender: Female Ht: 66 in Wt: 140 lbs BSA: 1.72 m2 HR: 75 bpm BP: 151 / 106 mmHg Technical Quality: Good Exam Date: 10/08/2025 10:22 AM Patient Status: O Admit Date: 10/08/2025 Exam Type: CA echo doppler color flow Complete two-dimensional, color flow and Doppler transthoracic echocardiogram is performed. Supervisor Lump Room: Mayra Vyas Attending Provider: Daniel Anderson DO Summary 1. Complete two-dimensional, color flow and Doppler transthoracic echocardiogram is performed. 2. Left ventricular chamber dimension is normal. 3. Left ventricular systolic function is normal, estimated at 65-70. 4. There is mild concentric increased left ventricular wall thickness. 5. The left ventricular diastolic function is grade I diastolic dysfunction. 6. E/e' 11 is mildly elevated. 7. The aortic valve is not well visualized. Cannot determine number of aortic valve leaflets. 8. There is severe aortic valve sclerosis. 9. There is no aortic valve stenosis based on a peak velocity of 180 cm/s, mean gradient of 8 mmHg, and aortic valve area of 2.7 cm2. Consider DAWIT if clinically indicated. Left Ventricle E/e' 11 is mildly elevated. Left ventricular chamber dimension is normal. Left ventricular systolic function is normal, estimated at 65-70. There is mild concentric increased left ventricular wall thickness. The left ventricular diastolic function is grade I diastolic dysfunction. Right Ventricle Right ventricular chamber dimension is normal. Right ventricular systolic function is normal. Left Atria Left atrial chamber dimension is normal. Right Atria Right atrial chamber dimension is normal. Aortic Valve The aortic valve is not well visualized. Cannot determine number of aortic valve leaflets. There is severe aortic valve sclerosis. There is no aortic valve stenosis based on a peak velocity of 180 cm/s, mean gradient of 8 mmHg, and aortic valve area of 2.7 cm2. Consider DAWIT if clinically indicated. There is no aortic valve regurgitation. Pulmonic Valve There is no pulmonic regurgitation. Mitral Valve There is no mitral valve stenosis. There is no mitral valve regurgitation. Tricuspid Valve There is no tricuspid valve regurgitation. Pericardium/Pleural There is no pericardial effusion. Inferior Vena Cava Normal inferior vena cava with >50% collapse upon inspiration consistent with normal right atrial pressure, 5 mmHg. Aorta The aortic root size at the sinus of Valsalva is normal. Left Ventricular Outflow Tract Name Value Normal LVOT 2D LVOT Diameter 2.0 cm LVOT Doppler LVOT Peak Velocity 173 cm/s LVOT Peak Gradient 12 mmHg LVOT Mean Gradient 6 mmHg LVOT VTI 35 cm LVOT VTI/AV VTI Ratio 0.9 LVOT Stroke Volume 104 ml LVOT CO 7.7 l/min LVOT CI 4.5 l/min/m2 Pulmonic Valve Name Value Normal RVOT Doppler RVOT Peak Velocity 79 cm/s RVOT Peak Gradient 3 mmHg PV Doppler PV Peak Velocity 83 cm/s PV Peak Gradient 3 mmHg Mitral Valve Name Value Normal MV Diastolic Function MV E Peak Velocity 48 cm/s MV A Peak Velocity 90 cm/s MV E/A 0.5 MV Decel Time (PW) 338 ms MV Annular TDI MV E/e' (Septal) 13.5 MV E/e' (Lateral) 10.4 MV E/e' (Average) 11.9 Tricuspid Valve Name Value Normal Estimated PAP/RSVP RA Pressure 5 mmHg <=5 Aortic Valve Name Value Normal AV Doppler AV Peak Velocity 180 cm/s AV Peak Gradient 13 mmHg AV Mean Gradient 8 mmHg AV VTI 39 cm AV Area (Cont Eq VTI) 2.7 cm2 >=3.0 AV Area (Cont Eq Timoteo) 2.9 cm2 AV DI (Timoteo) 0.96 AV Regurgitation 2D LVOT Area 3.0 cm2 Ventricles Name Value Normal LV Dimensions 2D/MM IVS Diastolic Thickness (2D) 1.0 cm 0.6-1.0 LVID Diastole (2D) 4.0 cm 3.8-5.2 LVIW Diastolic Thickness (2D) 1.3 cm 0.6-0.9 LVID Systole (2D) 2.6 cm 2.2-3.5 LVOT Diameter 2.0 cm LV Mass (2D Cubed) 159.00 g 67.00-162.00 LV Mass Index (2D Cubed) 92 g/m2 43-95 Relative Wall Thickness (2D) 0.67 <=0.42 LV Fractional Shortening/Ejection Fraction 2D/MM LV Fractional Shortening (2D) 34 % 27-45 LV EF (2D Teichholz) 64 % LV Diastolic Volume (4C MOD) 58 ml LV EF (4C MOD) 57 % LV Diastolic Volume (2C MOD) 57 ml LV EF (2C MOD) 58 % LV Diastolic Volume (BP MOD) 59 ml 46-106 LV Diastolic Volume Index (BP MOD) 34 ml/m2 29-61 LV Systolic Volume (BP MOD) 25 ml 14-42 LV Systolic Volume Index (BP MOD) 15 ml/m2 8-24 LV EF (BP MOD) 58 % 54-74 LV Diastolic Length (4C) 7.3 cm LV Systolic Length (4C) 6.2 cm LV Stroke Volume (4C MOD) 33 ml Atria Name Value Normal LA Dimensions LA Volume (4C A-L) 34 ml LA Volume (BP A-L) 32 ml RA Dimensions RA Systolic Major [place] Length (4C) 4.9 cm 2.2-2.8 RA Area (4C) 10.9 cm2 <=18.0 Report Signatures
== END 2025-10-08 10:01 | disposition home or self-care (01) ==
PROVIDERS: PCP Family Medicine; Visit Provider Internal Medicine Cardiovascular Disease
DX: I35.0 Nonrheumatic aortic (valve) stenosis (principal)
CPT/HCPCS: 93306